=== PATIENT | male | born 1985 | race Caucasian/White ===

== ENCOUNTER 2024-08-03 15:56 | Outpatient (REF) | payer MEDICAID, SELFPAY | END 2024-08-03 15:57 | disposition home or self-care (01) | LOC: LAB 15:56 | PROVIDERS: PCP Physician Assistant; Visit Provider Physician Assistant | DX: R19.8 Other specified symptoms and signs involving the digestive system and abdomen (principal) | CPT/HCPCS: 87177; 87209 ==

== ENCOUNTER 2024-08-04 08:40 | Outpatient (REF) | payer MEDICAID, SELFPAY | END 2024-08-04 08:41 | disposition home or self-care (01) | LOC: LAB 08:40 | PROVIDERS: PCP Physician Assistant; Visit Provider Physician Assistant | DX: R19.8 Other specified symptoms and signs involving the digestive system and abdomen (principal) | CPT/HCPCS: 87177; 87209 ==

== ENCOUNTER 2024-08-05 08:20 | Outpatient (REF) | payer MEDICAID, SELFPAY ==
--- OUTSIDE RECORDS SUMMARY | 2024-08-05 08:24 | XMS_ITS | CCD ---
Author Organization [facility] Care Team Providers Care Stoker Mechanic Name Role Phone DR SERGIO CASTAÑEDA Admitting Unavailable MADDY, DR HILL Attending Unavailable [facility], DR KIM Primary Care Unavailable DR SERGIO CASTAÑEDA Consulting Unavailable Mallory Houston Unavailable ESTRELLA SCHROEDER Attending Unavailable ESTRELLA SCHROEDER Attending Unavailable MONIQUE CISNEROS Attending Unavailable ESTRELLA SCHROEDER Attending Unavailable BRYANT MCLAUGHLIN Attending Unavailable MONIQUE CISNEROS Attending Unavailable Dorota Vann Attending Unavaila ble Allergies Allergy Classification Reported Allergen(s) Allergy Type Date of Onset Reaction(s) Facility (1 source) Erythromycin Drug Allergy [facility] (3 sources) Penicillin; Translations: [penicillin] Drug Allergy Unknown [facility] (1 source) Azithromycin Drug Allergy Unknown [facility] Other Medications Current Medications Medication Drug Class(es) Dates Sig (Normalized) Sig (Original) cetirizine hydrochloride 10 mg oral tablet (1 source) Histamine-1 Receptor Antagonist take 1 tablet by mouth every twenty-four hours Cetirizine HCl 10 MG 1 tablet Orally Once a day Active doxycycline hyclate 100 mg oral tablet (1 source) Tetracycline-class Drug Start: 07-21-2023 take 1 tablet by mouth every twelve hours Doxycycline Hyclate 100 MG 1 tablet Orally Twice a day for 10 day(s) Jun, Active fluticasone propionate 0.05 mg/actuat metered dose nasal spray (1 source) Corticosteroid Start: 07-21-2023 take 2 spray(s) nasal route once daily Fluticasone Propionate 50 MCG/ACT 2 sprays Nasally Once a day for 14 day(s) Jun, Active omeprazole 40 mg delayed release oral capsule (1 source) Proton Pump Inhibitor take 1 capsule by mouth once daily Omeprazole 40 MG 1 capsule 30 minutes before morning meal Orally Once a day Active polymyxin b 78275 unt/ml / trimethoprim 1 mg/ml ophthalmic solution (1 source) Dihydrofolate Reductase Inhibitor Antibacterial, Polymyxin-class Antibacterial Start: 07-21-2023 take 1 drop(s) into the eye(s) four times daily Polymyxin B-Trimethoprim 65606-3.1 UNIT/ML 1 drop(s) each eye Four times a day for 5 Jun, Active predniSONE 20 mg oral tablet (1 source) Start: 07-21-2023 take 1 tablet by mouth every twelve hours predniSONE 20 MG 1 tablet Orally bid for 5 day(s) Jun, Active Completed/Discontinued Medications Medication Drug Class(es) Dates Sig (Normalized) Sig (Original) brompheniramine maleate 0.4 mg/ml / dextromethorphan hydrobromide 2 mg/ml / pseudoephedrine hydrochloride 6 mg/ml oral solution (1 source) alpha-Adrenergic Agonist, Uncompetitive P-ilpzud-X-aspartat e Receptor Antagonist, Sigma-1 Agonist Start: 01-05-2022 take 10 mL by mouth every six hours Pseudoeph-Bromph en-DM 30-2-10 MG/5ML 10 mL Orally every 6 hours for 5 days Dec, Not-Taking ondansetron 4 mg oral tablet (1 source) Serotonin-3 Receptor Antagonist Start: 01-05-2022 take 1 tablet by mouth every eight hours as needed Ondansetron HCl 4 MG 1 tablet Orally every 8 hours as needed for 7 days Dec, Not-Taking oseltamivir 75 mg oral capsule (1 source) Neuraminidase Inhibitor Start: 01-05-2022 Oseltamivir Phosphate 75 MG as directed Orally Twice a day for 5 day(s) Dec, Not-Taking Problems Problem Classification Problem Date Documented Date Episodic/Chronic Inflammation; infection of eye (except that caused by tuberculosis or sexually transmitteddisease) (1 source) Unspecified conjunctivitis Episodic Other non-traumatic joint disorders (4 sources) Effusion, left knee; Translations: [EFFUSION LEFT KNEE] Onset: 12-04-2022 Episodic Other upper respiratory infections (1 source) Acute sinusitis, unspecified Episodic Results Test Name Value Interpretation Reference Range Facil ity CBC AUTO DIFFon 12-04-2022 BASO # 0.1 103/ul Normal 0.0-0.1 [facility] Comment on above: Performed By: #### C BC #### [facility] [address] [place] [address] Dr. Letty Grier Basophils/100 WBC (Bld) 0.6 % Normal 0.2-2.0 [facility] Comment on above: Performed By: #### C BC #### [facility] [address] [place] [address] Dr. Letty Grier EO # 0.1 103/ul Normal 0.0-0.7 [facility] Comment on above: Performed By: #### C BC #### [facility] [address] [place] [address] Dr. Letty Grier Eosinophils/100 WBC (Bld) 1.0 % Normal 0.9-7.0 [facility] Comment on above: Performed By: #### C BC #### [facility] [address] [place] [address] Dr. Letty Grier Erythrocyte distribution width (RBC) [Ratio] 12.5 % Normal 11.0-15.0 [facility] Comment on above: Performed By: #### C BC #### [facility] [address] [place] [address] Dr. Letty Grier Hematocrit (Bld) [Volume fraction] 44.5 % Normal 42.0-54.0 [facility] Comment on above: Performed By: #### C BC #### [facility] [address] [place] [address] Dr. Letty Grier Hemoglobin (Bld) [Mass/Vol] 15.9 g/dL Normal 14.0-18.0 [facility] Comment on above: Performed By: #### C BC #### [facility] [address] [place] [address] Dr. Letty Grier IG # 0.10 10e3/ul Critically high 0.00-0.03 [facility] Comment on above: Performed By: #### C BC #### [facility] [address] [place] [address] Dr. Letty Grier IG % 0.8 % Critically high 0.0-0.5 [facility] Comment on above: Performed By: #### C BC #### [facility] [address] [place] [address] Dr. Letty Grier LYMPH # 2.0 103/ul Normal 1.2-3.8 [facility] Comment on above: Performed By: #### C BC #### [facility] [address] [place] [address] Dr. Letty Grier Lymphocytes/100 WBC (Bld) 16.3 % Critically low 20.5-60.0 [facility] Comment on above: Performed By: #### C BC #### [facility] [address] [place] [address] Dr. Letty Grier MANUAL DIFF REQ NO Normal [facility] Comment on above: Performed By: #### C BC #### [facility] [address] [place] [address] Dr. Letty Grier MCH (RBC) [Entitic mass] 29.3 pg Normal 25.9-34.0 [facility] Comment on above: Performed By: #### C BC #### [facility] [address] [place] [address] Dr. Letty Grier MCHC (RBC) [Mass/Vol] 35.7 g/dL Critically high 29.9-35.2 [facility] Comment on above: Performed By: #### C BC #### [facility] [address] [place] [address] Dr. Letty Grier MCV (RBC) [Entitic vol] 82.1 fL Normal 80.0-94.0 [facility] Comment on above: Performed By: #### C BC #### [facility] [address] [place] [address] Dr. Letty Grier MONO # 0.8 103/ul Normal 0.3-0.8 [facility] Comment on above: Performed By: #### C BC #### [facility] [address] [place] [address] Dr. Letty Grier Monocytes/100 WBC (Bld) 6.7 % Normal 1.7-12.0 [facility] Comment on above: Performed By: #### C BC #### [facility] [address] [address] [address] Letty Grier NEUT # 8.9 103/ul Critically high 1.4-6.5 [facility] Comment on above: Performed By: #### C BC #### [facility] [address] [address] [address] Letty Grier Neutrophils/100 WBC (Bld) 74.6 % Normal 43.0-75.0 [facility] Comment on above: Performed By: #### C BC #### [facility] [address] [address] [address] Letty Grier Platelet mean volume (Bld) [Entitic vol] 9.6 fL Normal 9.5-13.5 [facility] Comment on above: Performed By: #### C BC #### [facility] [address] [place] [address] Dr. Letty Grier PLT 319 103/ul Normal 150-450 [facility] Comment on above: Performed By: #### C BC #### [facility] [address] [place] [address] Dr. Letty Grier RBC 5.42 106/ul Normal 4.70-6.10 [facility] Comment on above: Performed By: #### C BC #### [facility] [address] [place] [address] Dr. Letty Grier WBC 11.9 103/ul Critically high 4.0-11.0 [facility] Comment on above: Performed By: #### C BC #### [facility] [address] [address] [address] Letty Grier CRPon 12-04-2022 CRP 1.0 mg/dL Normal <=1.0 [facility] Comment on above: Performed By: #### U QUINTON, CRP #### [facility] [address] [place] [address] Dr. Letty Grier SED RATE WESTERGRENon 2022 SED RATE 10 mm/hr Normal <=15 [facility] Comment on above: Performed By: #### S EDR #### [facility] [address] [address] [address] Letty Grier URIC ACID SERUMon 12-04-2022 Urate [Mass/Vol] 6.6 mg/dL Normal 3.5-7.2 [facility] Comment on above: Performed By: #### U QUINTON, CRP #### [facility] [address] [address] [address] Letty Grier MRI Knee w/o Lefton 10-01-20 MRI Knee w/o Left HISTORY: Left medial knee pain for 2 months. TECHNIQUE: Routine non-contrast MRI of the left knee COMPARISON: Radiographs 08/31/2022. RESULT: MENISCI: Medial Meniscus: Horizontal tearing involving the posterior horn and body, contacting the inferior articular surface, without significant meniscal displacement. Lateral Meniscus: Intact LIGAMENTS: ACL, PCL, MCL, LCL Complex: Intact CARTILAGE: Within normal limits. TENDONS: Mild distal quadriceps and patellar tendinosis without tear. Popliteus appears intact. BONES AND MARROW: No evidence of fracture or bone marrow replacing process. MUSCLES: Muscle bulk and signal intensity are normal. JOINT FLUID AND SYNOVIUM: No joint effusion. No synovitis. No Reno's cyst. OTHER: No other significant abnormality. IMPRESSION: Medial meniscal tear. Mild extensor mechanism tendinosis. Report reported and signed by Cristino Timmons on 10/01/2022 1607 Normal [facility] [employer] Person Vital Signs Date Time Vital Sign Value Performing Clinician Facility 07-21-2023 10:00-0400 Body height 190.5 cm Mallory Houston Other [facility] Other 07-21-2023 10:00-0400 Body mass index (BMI) [Ratio] 30.52 kg/m2 Mallory Houston Other [facility] Other 07-21-2023 10:00-0400 Body temperature 98.7 [degF] Mallory Houston Other [facility] Other 07-21-2023 10:00-0400 Body weight 110.77 kg Mallory Houston Other [facility] Other 07-21-2023 10:00-0400 Diastolic blood pressure 83 mm[Hg] Mallory Houston Other [facility] Other 07-21-2023 10:00-0400 Respiratory rate 18 /min Mallory Houston Other [facility] Other 07-21-2023 10:00-0400 SaO2% (BldA) [Mass fraction] 97 % Mallory Houston Other [facility] Other 07-21-2023 10:00-0400 Systolic blood pressure 110 mm[Hg] Mallory Houston Other [facility] Other Encounters Encounter Date Encounter Type Care Provider Facility Start: 08-07-2024 ambulatory Raya Talal Sarmini Facility:[facility] Start: 07-19-2024 ambulatory Raya Abemini Facili ty:[facility] Start: 04-04-2024 End: 04-04-2024 ambulatory MONIQUE Dee BLAYNE Not Available Start: 01-27-2024 End: 01-27-2024 ambulatory BRYANT MCLAUGHLIN Not Available Start: 01-26-2024 End: 01-26-2024 ambulatory ESTRELLA E RAMBASEK Not Available Start: 12-29-2023 End: 12-29-2023 ambulatory ESTRELLA E RAMBASEK Not Available Start: 11-11-2023 End: 11-11-2023 ambulatory MONIQUE M HEMMER Not Available Start: 10-18-2023 End: 10-18-2023 ambulatory ESTRELLA E RAMBASEK Not Available Start: 07-21-2023 End: 07-21-2023 ambulatory Mallory Houston Other [facility] Other Start: 07-21-2023 Office outpatient vi sit 15 minutes [facility] Start: 12-04-2022 End: 12-05-[address] SERGIO CASTAÑEDA Facility:[facility] Payers Date Payer Category Payer Medicaid [id number] 2. [id number] 1985 Unknown [id number] 2.16.84 [id number] 1985 Unknown [id number] 2.16.84 [id number] 1985 Unknown [id number] 2.16.84 [id number] 1985 Unknown [id number] 2.16.84 [id number] 1985 Unknown [id number] 2.16.84 [id number] 1985 Unknown [id number] 2.16.840 .[id number] 1985 Unknown [id number] 2.16.840 .[id number] 1985 Unknown [id number] 2.16.8 [id number] 1957 Unknown [id number] Social History Date Type Detail Facility Unknown if ever smoked [facility] Other Sex Assigned At Sex Assigned At Bir th [facility] Other Evaluation note 07-21-2023 Note Date & Type Note Facility 07-21-2023 Evaluation note Encounter Date Diagnosis Assessment Notes Jun, Acute sinusitis, recurrence not specified, unspecified location (ICD-10 - J01.90) Sinusitis home care material was printed Drink plenty fluids, get plenty of rest. Take the doxycycline and the prednisone as prescribed until gone. Use the fluticasone nasal spray as prescribed and your symptoms improved. Use the eyedrops as prescribed. Good handwashing. Wash your pillowcase every day for the next few days. Follow-up with your family physician if no improvement in 2 to 3 days. Jun, Conjunctivitis of both eyes, unspecified conjunctivitis type (ICD-10 - H10.9) [facility] Other History general Narrative - Reported Note Date & Type Note Facility History general Narrative - Reported Type Surgical History tonsillectomy and adenoidectomy Surgical History PE tubes Surgical History meniscus 11/19 [facility] Other Summary Purpose Family History No Family History Records FoundNo Family History Records FoundNo Family History Records FoundNo Family History Records Found Advance Directives No Advanced Directives Records FoundNo Advanced Directives Records FoundNo Advanced Directives Records FoundNo Advanced Directives Records Found Additional Source Comments (unrecognized sect ion and content) No Status Records FoundNo Status Records FoundNo Status Records FoundNo Status Records Found INFORMATION SOURCE (unrecogn ized section and content) DATE CREATED AUTHOR 10/02/2022 [facility] DATE CREATED AUTHOR AUTHOR'S ORGANIZ ATION 12/17/2022 [facility] DATE CREATED AUTHOR AUTHOR'S ORGANIZ ATION 04/05/2024 [facility] EPIC DATE CREATED AUTHOR AUTHOR'S ORGANIZ ATION 08/04/2024 [facility] REASON FOR VISIT (unrecogniz ed section and content) SORE THROAT, SWOLLEN GLANDS, CONGESTION, SORE EARS, EYE MUCUS FOR RECORDS PERTAINING TO PATIENTS WHO ARE OR HAVE BEEN ENROLLED IN A CHEMICAL DEPENDENCY/SUBSTANCEABUSE PROGRAM, SOME INFORMATION MAY BE OMITTED. This clinical summary was aggregated from multiple sources. Caution should be exercised in using it in the provision of clinical care. This summary normalizes information from multiple sources, and as a consequence, information in this document may materially change the coding, format and clinical context of patient data. In addition, data may be omitted in some cases. CLINICAL DECISIONS SHOULD BE BASED ON THE PRIMARY CLINICAL RECORDS. [employer] provides no warranty or guarantee of the accuracy or completeness of information in this document.
== END 2024-08-05 08:21 | disposition home or self-care (01) ==
LOC: LAB 08:20
PROVIDERS: PCP Physician Assistant; Visit Provider Physician Assistant
DX: R19.8 Other specified symptoms and signs involving the digestive system and abdomen (principal)
CPT/HCPCS: 87177; 87209

== ENCOUNTER 2025-05-22 12:05 | Outpatient (OUT) | payer MEDICAID, SELFPAY ==
--- NOTE | 2025-05-22 12:24 | XR_ITS ---
The [address] [address] Patient Name: GABY SCHOFIELD MRN: [id number] date: 1985 Sex: M Assigned Patient Location: LAB Current Patient Location: LAB Accession/Order Number: [id number] Exam Date: 05/22/2025 13:01 Report Date: 05/22/2025 13:03 At the request of: EFREN WYATT Procedure: XR foot LT min 3V LEFT FOOT - 3 views CLINICAL HISTORY: Medial left foot pain. COMPARISON: None FINDINGS: No focal soft tissue abnormality. No acute bony process is seen. Presumed remote posttraumatic changes involving the distal phalanx of the first digit. Joint spaces appear maintained. No bony erosions. XR/XR foot LT min 3V IMPRESSION: NO ACUTE BONY PROCESS. Impression dictated by: Dimitry Love Jr., D.O. 05/22/2025 1:03 PM Dictation Location: [place] [address] Electronically authenticated by: [id number] Y Date: 05/22/2025 13:03
[2025-05-22 13:00] LABS: Uric Acid 6.8 mg/dL (3.5-7.2)
== END 2025-05-22 12:06 | disposition home or self-care (01) ==
LOC: LAB 12:10
PROVIDERS: PCP Physician Assistant; Visit Provider Nurse Practitioner Family
DX: M10.9 Gout, unspecified (principal); M79.672 Pain in left foot
CPT/HCPCS: 36415; 73630; 84550

== ENCOUNTER 2025-09-13 09:47 | Outpatient (OUT) | payer MEDICAID, SELFPAY ==
--- OUTSIDE RECORDS SUMMARY | 2024-06-26 04:00 | XMS_ITS ---
Author Organization [facility] Servic es Address [address] [place] [address] Care Team Providers Care Consulting Sales Manager Name Role Phone Dr. Dimitry Damian Primary Care Provider [phone] Jeanette Dhillon Unavailable [phone] REASON FOR VISIT 6 MONTHS Encounters Encounter Location Date Provider Diagnosis [address] [address] 06/26/2024 Jeanette Little Plan Of Treatment No Information Progress Notes * GABY SCHOFIELDDOB: [birth year] (40 yo M)Acc No.[id number]:06/26/2024 Patient: John GABY DORSEY Provider: Ravi Briscoe :1985 A ge:39 Y S ex:Male Date:06/26/2024 Address:[address] [place], [place] [id number] Pcp:Dr. Dimitry Damian Subjective: * Chief Complaints: * 6 MONTHS * Electronic signature of Karin Little on 09/13/2025 at 09:53 AM EDT Sign off status: Pending * Provider: Ravi Briscoe Date: 0 06/26/2024 Generated for Maoi ng/Kirby/eTransmitting on: 1 09:53 AM EDT
--- OUTSIDE RECORDS SUMMARY | 2024-09-04 04:30 | XMS_ITS ---
Author Organization [facility] es Address [address] [place] [address] Care Team Providers Care Touch Up Painter Name Role Phone Dr. Dimitry Damian Primary Care Provider [phone] Jeanette Little Unavailable [phone] REASON FOR VISIT R/S from 06/26- exam Encounters Encounter Location Date Provider Diagnosis [address] [place] [address] 09/04/2024 Jeanette Little Plan Of Treatment No Information Progress Notes * GABY SCHOFIELDDOB: 7 (40 yo M)Acc No.[id number]:09/04/2024 Patient: John SUNITA GABY Provider: Ravi Briscoe :1985 A ge:39 Y S ex:Male Date:09/04/2024 Address:[address] [place], [place] [id number] Pcp:Dr. Dimitry Damian Subjective: * Chief Complaints: * R /S from 06/26- exam * Electronic signature of Karin Little on 09/13/2025 at 09:54 AM EDT Sign off status: Pending * Provider: Ravi Briscoe Date: Generated for Maoi ng/Falillyg/eTransmitting on: 09:54 AM EDT
--- OUTSIDE RECORDS SUMMARY | 2025-09-03 08:30 | XMS_ITS | Encounter Summary ---
Author Organization [facility] Address [address] [place] [address] Care Team Providers Care Fuse Coiler Name Role Phone Janeen Levi MD Primary Care Provider [phone] Janeen Levi MD Unavailable Reason for Visit * Reason Comments Arm Pain EMG RUE * Other Medical (Routine) - Closed Specialty Diagnoses / Procedures Referred By Contac t Referred To Contact Neurology Diagnoses Arm weakness Numbness Arm pain, right Arm pain, left Procedures EMG AND NERVE CONDUCTION STUDY Daniele Kasper, PA [address] [place] [address] Phone: tel: fax: Anuj Lake MD [address] [facility] [address] [place] [address] Phone: tel: fax: Referral ID Status Reason Start Date Expiration Date Visits Re quested Visits Authorized [id number] Closed 08/27/2025 02/23/2026 1 1 Encounter Details Date Type Department Care Team (Latest Contact Info) Description 09/03/2025 8:30 AM EDT Procedure Visit [facility] [address] [facility] [address] [place] [address] Tendinitis of right forearm; Arm weakness; Numbness; Arm pain, right Social History Tobacco Use Types Packs/Day Years Used Date Smoking Tobacco: Never Smokeless Tobacco: Never Alcohol Use Standard Drinks/Week Comments Not Currently 0 (1 standard drink = 0.6 oz pur e alcohol) PHQ-2 Answer Date Recorded Patient Health Questionnaire-2 Score 0 05/22/2025 Sex and Gender Information Value Date Recorded Sex Assigned at Not on file Legal Sex Male 6:35 PM EDT Gender Identity Not on file Sexual Orientation Not on file documented as of this encounter Progress Notes * Charles Bearden - 09/03/2025 8:30 AM EDT EMG RUE documented in this encounter Plan of Treatment Upcoming Encounters Date Type Department Care Team (Late st Contact Info) Description 09/27/2025 10:50 AM EDT Office Visit [facility] [address] [place] [address] Reddy Norton, DPM [address] [facility] [address] [place] [address] 10/17/2025 8:30 AM EST Office Visit [facility] [address] [place] [phone] Jr. Fabricio Knight, DO [address] [place] [address] 01/29/2026 8:35 AM EST Office Visit [facility] [address] [place] [address] Dali Hewitt, SANDING SUPERVISOR-TRAY LINE SUPERVISOR [address] [place] [address] documented as of this encounter Procedures Procedure Name Priority Date/Time Associated Diagnosis Comments EMG AND NERVE CONDUCTION STUDY Routine 09/03/2025 2:02 PM EDT Arm weakness Numbness Arm pain, right documented in this encounter Results * EMG AND NERVE CONDUCTION STUDY (09/03/2025 2:02 PM EDT) us Daniele LEVI NEUROLOGY ORDERABLES Final Re sult documented in this encounter Visit Diagnoses Diagnosis Tendinitis of right forearm Arm weakness Other musculoskeletal symptoms referable to limbs Numbness Disturbance of skin sensation Arm pain, right Pain in soft tissues of limb documented in this encounter Care Teams Fuse Coiler Relationship Specialty Start Date End Date Janeen Levi MD [address] [facility] [address] [place] [address] PCP - General Family Medicine 05/03/23 Janeen Levi MD [address] [facility] [address] [place] [address] PCP - ROGES Alexey MANUFACTURED BUILDINGS SUPERVISOR 02/28/24 documented as of this encounter
--- OUTSIDE RECORDS SUMMARY | 2025-09-05 09:45 | XMS_ITS | Encounter Summary ---
Author Organization [facility] Address [address] [place] [address] Care Team Providers Care Cyanide Pot Hardener Name Role Phone Janeen Levi MD Primary Care Provider Janeen Levi MD Unavailable Reason for Referral * Consultation (Routine) - Authorized Specialty Diagnoses / Procedures Referred By Rukhsana carrizales Referred To Contact Physical Therapy Diagnoses Flexor carpi ulnaris tendinitis Procedures AR OFFICE/OUTPATIENT [facility] MDM 60 MINUTES Jr. Fabricio Knight DO 112 [facility] [address] [place] [address] Phone: tel: fax: [facility] [address] [place] [address] Phone: tel: fax: Referral ID Status Reason Start Date Expiration Date Visits Requested Visits Authorized [id number] Authorized Specialty Services Required 09/05/2025 03/04/2026 1 1 Reason for Visit * Reason Comments Pain Encounter Details Date Type Department Care Team (Late st Contact Info) Description 09/05/2025 9:45 AM EDT Office Visit [facility] [address] [facility] [address] [place] [address] Jr. Fabricio Knight DO 112 [facility] 150 [place] [address] Flexor carpi ulnaris tendinitis (Primary Dx) Social History Tobacco Use Types Packs/Day Years [...] as of this encounter Progress Notes * Jr. Fabricio Knight, DO - 09/05/2025 9:45 AM EDT Images from the original note were not included. HISTORY OF PRESENT ILLNESS: EST PT Andrea Rader is an 40 y.o. @ male. 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 CONSTANT ANTERIOR ACHING DISCOMFORT - CAN HAVE NUMBNESS TO PALM - WORSE WITH CERTAIN POSITIONS. DIFFICULTY WITH HOLDING OBJECTS UP WHILE LYING DOWN. MINIMAL TINGLING. CAN HAVE SOME INFLAMMATION / SWELLING TO ULNAR ASPECT / WRIST. GOOD ROM TO ELBOW / WRIST. ADMITS WEAKNESS / STIFFNESS. CAN WAKE HS. IBU PRN. TRIED BRACING / COMPRESSION SLEEVE / FATIGUE PADS - NO RELIEF. VOLTAREN - NO RELIEF. TRIED ICING - NO RELIEF. HAS TRIED STRETCHING. 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 RT HANDED. ALLERGIES: Allergies Allergen Reactions Erythromycin Base Unknown HOME MEDICATIONS: Current Outpatient Medications Medication Instructions carboxymethylcellulose (Refresh Plus) 0.5 % ophthalmic solution 1 drop, As needed cetirizine (ZYRTEC) 10 mg, Daily PRN fluticasone (Flonase) 50 MCG/ACT nasal spray 1 spray, Each Nostril, Daily, PRN ibuprofen 800 mg, Oral, 3 times daily methylPREDNISolone (Medrol Dospak) 4 MG tablets Follow schedule on MEDROL PACK package instructionsto be used as directed Multiple Vitamin (MULTIVITAMIN ADULT PO) 1 tablet, Daily omeprazole (PRILOSEC) 40 mg, Oral, Daily RT, Do not crush or chew. evvbmowspqgjjog-JE-HO 60-15-400 MG tablet 1 tablet, Oral, Every 6 hours PRN PHYSICAL EXAM: Hand/Wrist Musculoskeletal Exam Inspection Right Right hand/wrist inspection is normal. Erythema: none Ecchymosis: none Edema: none Deformity: none Palpation Right Right wrist palpation is normal. Wrist tenderness to palpation comment: DENIES PAIN TO SNUFF BOX OR SCAPHO-LUNATE. Palpation additional comments: With deep palpation over the flexor carpi ulnaris musculotendinous junction Range of Motion Right Wrist Right wrist range of motion is normal. Active Extension: 80 Passive Extension: 80 Active Flexion: 80 Passive Flexion: 80 Active Pronation: 90 Passive Pronation: 90 Active Supination: 90 Passive Supination: 90 Strength Right Hand Right hand strength is normal. Ulnar digital flexors are affected by pain. Right Wrist Right wrist strength is normal. Extension: 5/5. Flexion: 5/5. Flexion is affected by pain. Radial deviation: 5/5. Ulnar deviation: 5/5. Pronation: 5/5. Supination: 5/5. Neurovascular Right Right neurovascular exam is normal. Radial pulse: normal and 2+ Capillary refill: <3 sec and brisk Ulnar nerve sensory distribution: normal Median nerve sensory distribution: normal Superficial radial nerve sensory distribution: normal Special Tests Right DRUJ instability: negative TFCC load test: negative General Constitutional: appears stated age Labored breathing: no Neurological: alert and oriented x3 Skin: intact Lymphadenopathy: none Vitals: There is no height or weight on file to calculate BMI. Tobacco Use: Low Risk (09/06/2025) Patient History Smoking Tobacco Use: Never Smokeless Tobacco Use: Never Passive Exposure: Not on file Alcohol Use: Not on file IMAGING: Procedures Orders Placed This Encounter Procedures Ambulatory referral to Physical Therapy Standing Status: Future Expected Date: 09/05/2025 Expiration Date: 03/06/2026 Referral Priority: Routine Referral Type: Consultation Referral Reason: Specialty Services Required Referral Location: [facility] Requested Specialty: Physical Therapy Number of Visits Requested: 1 ASSESSMENT: ICD-10-CM 1. 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 I feel he is a flexorcarpi ulnaris strain sprain chronic from October 2023. We recommended physical therapy 3 times a week for 6 weeks. We'll see him back in 6 weeks. If his symptoms persist or worsen we would probablyrecommend a second opinion from Dr. Herring or Jalen. Questions answered in laymen terms at the bedside. The diagnosis, home exercise plan and any ongoing restrictions/ recommendations reviewed. If unable to be reached in office, I recommend evaluation at nearest Emergency Room if any symptoms worsened or new symptoms develop for requiring urgent evaluation. documented in this encounter Plan of Treatment Upcoming Encounters Date Type Department Care Team (Late st Contact Info) Description 09/27/2025 10:50 AM EDT Office Visit [facility] [address] [place] [address] Reddy Norton, DPM 3006 [facility] [address] [place] [address] 10/17/2025 8:30 AM EST Office Visit [facility] [address] [place] [address] Jr. Fabricio Knight DO [address] [place] [address] 01/29/2026 8:35 AM EST Office [facility] [address] [place] [address] Dali Hewitt, TEMI-CENTRAL STORES ATTENDANT [address] [place] [address] Scheduled Referrals Name Type Priority Associated Diagnoses Order Schedule Ambulatory referral to Physical Therapy Outpatient Referral Routine Flexor carpi ulnaris tendinitis Expected: 09/05/2025 (Approximate), Expires: 03/06/2026 documented as of this encounter Visit Diagnoses Diagnosis Flexor carpi ulnaris tendinitis- Primary documented in this encounter Care Teams Cyanide Pot Hardener Relationship Specialty Start Date End Date Janeen Levi MD [address] [address] PCP - General Family Medicine 05/03/23 Janeen Levi MD [address] [address] PCP - [facility] NICKING MACHINE OPERATOR 02/28/24 documented as of this encounter
--- OUTSIDE RECORDS SUMMARY | 2025-09-06 09:00 | XMS_ITS | Encounter Summary ---
Author Organization [facility] Address [address] [place] [address] Care Team Providers Care Log Loader Name Role Phone Janeen Levi MD Primary Care Provider [phone] Janeen Levi MD Unavailable Reason for Visit * Reason Comments Follow-up Lt 1st mpj Encounter Details Date Type Department Care Team (Latest Contact Info) Description 09/06/2025 9:00 AM EDT Office Visit [facility] [address] [facility] [address] [place] [address] Reddy Norton, DPM 3006 [facility] [address] [place] [address] Capsulitis of metatarsophalangeal (MTP) joint of left foot (Primary Dx); Plantar fasciitis; Gout of left foot, unspecified cause, unspecified chronicity; Hallux rigidus of left foot Social History Tobacco Use Types Packs/Day Years Used Date Smoking Tobacco: Never Smokeless Tobacco: Never Tobacco Cessation:Counseling Given: Yes Alcohol Use Standard Drinks/Week Comments Not Currently 0 (1 standard drink = 0.6 oz pur e alcohol) PHQ-2 Answer Date Recorded Patient Health Questionnaire-2 Score 0 05/22/2025 Sex and Gender Information Value Date Recorded Sex Assigned at Not on file Legal Sex Male 6:35 PM EDT Gender Identity Not on file Sexual Orientation Not on file documented as of this encounter Last Filed Vital Signs Vital Sign Reading Time Taken Comments Blood Pressure - - Pulse - - Temperature - - Respiratory Rate 18 09/06/2025 9:04 AM EDT Oxygen Saturation - - Inhaled Oxygen Concentration - - Weight 111 kg (245 lb) 09/06/2025 9:04 AM EDT Height 190.5 cm (6' 3 ) 09/06/2025 9:04 AM EDT Body Mass Index 30.62 09/06/2025 9:04 AM EDT documented in this encounter Progress Notes * Reddy Norton, DPM - 09/06/2025 9:00 AM EDT Patient: Andrea Rader : 1985 PCP: Janeen Levi MD SUBJECTIVE This is a 40 y.o. male that presents today for a follow up of right foot plantar fascitis for the past year. He has tried different shoes and nsaids with positive improvement. Patient rates pain a 1/10. Pt has been wearing orthotics with positive improvement. Patient presents today for follow up of capsulitis and synovitis to the left first MPJ Currently they rate their pain on a 1-10 scale a 1 States prior treatments of steroid injection and recent medrol pack with positive improvement. Patient has history of hallux limitus and possible gouty arthritis and states it proximally 1 week ago he had increased redness and soreness to the joint and took ibuprofen with positive improvement.States it has resolved and occurred directly after activity and wearing shoes as well Pt has hx of gout. Allergies: Allergies Allergen Reactions Erythromycin Base Unknown Past Medical History: Past Medical History: Diagnosis Date GERD (gastroesophageal reflux disease) Medications: Current Outpatient Medications: carboxymethylcellulose (Refresh Plus) 0.5 % ophthalmic solution, 1 drop if needed for dry eyes, Disp: , Rfl: cetirizine (ZyrTEC) 10 MG tablet, Take 10 mg by mouth Daily as needed for allergies, Disp: , Rfl: fluticasone (Flonase) 50 MCG/ACT nasal spray, Administer 1 spray into each nostril Daily PRN, Disp:9.9 mL, Rfl: 5 methylPREDNISolone (Medrol Dospak) 4 MG tablets, Follow schedule on MEDROL PACK package instructions to be used as directed, Disp: 21 tablet, Rfl: 0 Multiple Vitamin (MULTIVITAMIN ADULT PO), Take 1 tablet by mouth 1 (one) time each day., Disp: , Rfl: omeprazole (PriLOSEC) [address] capsule, Take 1 capsule (40 mg) by mouth in the morning. Do not crush or chew., Disp: 90 capsule, Rfl: 3 foametrivxppyuc-DN-KH 60-15-400 MG tablet, Take 1 tablet by mouth every 6 (six) hours if needed (Cough), Disp: 28 tablet, Rfl: 0 Social History: Social History Socioeconomic History Marital status: Spouse name: Not on file Number of children: Not on file Years of education: Not on file Highest education level: Not on file Occupational History Not on file Tobacco Use Smoking status: Never Smokeless tobacco: Never Vaping Use Vaping status: Never Used Substance and Sexual Activity Alcohol use: Not Currently Drug use: Never Sexual activity: Defer Other Topics Concern Not on file Social History Narrative Not on file Social Drivers of Health Financial Resource Strain: Not on file Food Insecurity: Not on file Transportation Needs: Not on file Physical Activity: Not on file Stress: Not on file Social Connections: Not on file Intimate Partner Violence: Not on file Housing Stability: Not on file ROS: General: denies fever, chills, fatigue, malaise GI: denies abdominal pain, loose stool or cramping. OBJECTIVE LE EXAM: DERM: Positive hair growth to b/l feet with good skin turgor noted. Negative openings in skin. Negative edema and erythema and podagra to the left 1st MPJ VASC: Palpable pedal pulsed b/l with warm to cool tibia to toes b/l NEURO: Gross sensation intact digits 1-10 and b/l feet ORTHO: +5/5 DF/PF/IN/EV right, +5/5 DF/PF/IN/EV left. 20 degrees inversion and 10 degrees eversion STJ b/l. Ankle ROM less than 10 degrees b/l. diminished pain on palpation along right plantar fascial band minimal pain on palpation to the 1st MPJ left less than 65 degrees dorsiflexion with negative crepitus XRAY: XR foot 3+ views left Imaging Result: 1st MPJ has slight narrowing of the 1st MPJ with slight medial deviation of the 1st metatarsal and very mild HAV deformity with negative fractures identified ASSESSMENT 1. Capsulitis of metatarsophalangeal (MTP) joint of left foot 2. Plantar fasciitis 3. Gout of left foot, unspecified cause, unspecified chronicity PLAN Pt to take nsaids as needed PRN pain Continue with orthotics Reviewed x-rays today with patient discussed possible need for joint aspirate or call for labs if has acute flare has patient has probably accommodation of gouty arthritis from time to time with hallux limitus of the left 1st MPJ. Did discuss possible bio Pro implant in the future if no improvementin patient to follow up if has episodes Reddy Norton DPM documented in this encounter Plan of Treatment Upcoming Encounters Date Type Department Care Team (Late st Contact Info) Description 09/27/2025 10:50 AM EDT Office Visit [facility] [address] [place] [address] Reddy Norton DPM 3006 [facility] [address] [place] [address] 10/17/2025 8:30 AM EST Office Visit [facility] [address] [place] [address] Jr. Fabricio Knight, [address] [place] [address] 01/29/2026 8:35 AM EST Office Visit [facility] [address] [place] [address] Dali Hewitt, GLOVE CUTTER-GASOLINE PLANT OPERATOR [address] [place] [address] documented as of this encounter Procedures Procedure Name Priority Date/Time Associated Diagnosis Comments XR FOOT 3+ VIEWS LEFT Routine 09/06/2025 9:20 AM EDT Capsulitis of metatarsophalangeal (MTP) joint of left foot documented in this encounter Results * XR foot 3+ views left (09/06/2025 9:20 AM EDT) Anatomical Region Laterality Modality Lower Extremities, Foot Left Radiogra phic Imaging Narrative 09/06/2025 9:28 AM EDT Imaging Result: 1st MPJ has slight narrowing of the 1st MPJ with slight medial deviation of the 1st metatarsal and very mild HAV deformity with negative fractures identified us Reddy Norton DPM IMG XR PROCEDURES Final Res ult documented in this encounter Visit Diagnoses Diagnosis Capsulitis of metatarsophalangeal (MTP) joint of left foot- Primary Plantar fasciitis Plantar fascial fibromatosis Gout of left foot, unspecified cause, unspecified chronicity Hallux rigidus of left foot documented in this encounter Care Teams Log Loader Relationship Specialty Start Date End Date Janeen Levi MD [address] [address] PCP - General Family Medicine 05/03/23 Janeen Levi MD 112 [facility] 110 [place] [address] PCP - [facility] Blackburn DRYWALLER 02/28/24 documented as of this encounter
--- OUTSIDE RECORDS SUMMARY | 2025-09-06 09:25 | XMS_ITS | Encounter Summary ---
Author Organization [facility] Address [address] [place] [address] Care Team Providers Care Shipping Point Inspector Name Role Phone Janeen Levi MD Primary Care Provider [phone] Janeen Levi MD Unavailable Encounter Details Date Type Department Care Team (Late Contact Info) Description 09/06/2025 9:25 AM EDT Ancillary Procedure [facility] 112 [facility] 120 [place] [address] Social History Tobacco Use Types Packs/Day Years [...] on file documented as of this encounter Plan of Treatment Upcoming Encounters Date Type Department Care Team (Late Contact Info) Description 09/27/2025 10:50 AM EDT Office Visit [facility] 112 [facility] 120 [place] [address] Reddy Norton DPM 3006 [facility] [address] [place] [address] 10/17/2025 8:30 AM EST Office Visit [facility] [address] [facility] [address] [place] [address] Jr. Fabricio Knight, DO [address] [facility] [address] [place] [address] 01/29/2026 8:35 AM EST Office Visit [facility] [address] [place] [address] Dali Hewitt, CONTENT DEVELOPMENT MANAGER-NEEDLE GRADER [address] [place] [address] documented as of this encounter [...] mild HAV deformity with negative fractures identified Reddy Norton DPM IMG XR PROCEDURES Final Res ult documented in this encounter Visit Diagnoses Not on filedocumented in this encounter Care Teams Shipping Point Inspector Relationship Specialty Start Date End Date Janeen Levi MD [address] [facility] [address] [place] [address] PCP - General Family Medicine 05/03/23 Janeen Levi MD [address] [facility] [address] [place] [address] PCP - [facility] Blackburn TSA SCREENER 02/28/24 documented as of this encounter
--- OUTSIDE RECORDS SUMMARY | 2025-09-12 16:10 | XMS_ITS | Encounter Summary ---
Author Organization [facility] Address [address] [place] [address] Care Team Providers Care Locker Room Clerk Name Role Phone Janeen Levi MD Primary Care Provider [phone] Janeen Levi MD Unavailable Reason for Visit * Reason Comments Follow-up Foot pain Encounter Details Date Type Department Care Team (Latest Contact Info) Description 09/12/2025 4:10 PM EDT Office Visit [facility] [address] [place] [address] Reddy Norton DPM [address] [address] Capsulitis of metatarsophalangeal (MTP) joint of left foot (Primary Dx); Hallux rigidus of left foot; Gout of left foot, unspecified cause, unspecified chronicity; Plantar fasciitis Social History Tobacco Use Types Packs/Day Years [...] - Temperature - - Respiratory Rate 18 09/12/2025 4:30 PM EDT Oxygen Saturation - - Inhaled Oxygen Concentration - - Weight 111 kg (245 lb) 09/12/2025 4:30 PM EDT Height 190.5 cm (6' 3 ) 09/12/2025 4:30 PM EDT Body Mass Index 30.62 09/12/2025 4:30 PM EDT documented in this encounter Progress Notes * Reddy Norton, DPM - 09/12/2025 4:10 PM EDT Patient: Andrea Rader : 1985 PCP: [...] their pain on a 1-10 scale a 8 States prior treatments of steroid injection and recent medrol pack with positive improvement in the past. Patient has history of hallux limitus and possible gouty arthritis and was last seen one week ago with improvement on prior visit. Patient states increased flare and redness and pain to the left 1st MPJ over the past 24 hour Pt has hx of gout. Allergies: Allergies [...] nostril Daily PRN, Disp:9.9 mL, Rfl: 5 ibuprofen 800 MG tablet, Take 1 tablet (800 mg) by mouth in the morning and 1 tablet (800 mg) in the evening and 1 tablet (800 mg) before bedtime., Disp: 90 tablet, Rfl: 0 methylPREDNISolone (Medrol Dospak) 4 MG tablets, Follow [...] or chew., Disp: 90 capsule, Rfl: 3 qofzurftupvmvin-TE-UK 60-15-400 MG tablet, Take 1 tablet by [...] skin turgor noted. Negative openings in skin. positiveedema and positive podagra to the left 1st MPJ VASC: Palpable pedal pulsed b/l with warm to cool tibia to toes b/l NEURO: Gross sensation intact digits 1-10 and b/l feet ORTHO: +5/5 DF/PF/IN/EV right, +5/5 DF/PF/IN/EV left. 20 degrees inversion and 10 degrees eversion STJ b/l. Ankle ROM less than 10 degrees b/l. diminished pain on palpation along right plantar fascial band Positive pain on palpation to the 1st MPJ left less than 65 degrees dorsiflexion with negative crepitus XRAY: PAST XR foot 3+ views left Imaging Result: 1st MPJ has slight narrowing of the 1st MPJ with slight medial deviation of the 1st metatarsal and very mild HAV deformity with negative fractures identified ASSESSMENT 1. Capsulitis of metatarsophalangeal (MTP) joint of left foot 2. Hallux rigidus of left foot 3. Gout of left foot, unspecified cause, unspecified chronicity 4. Plantar fasciitis PLAN Pt to take nsaids as needed PRN pain Continue with orthotics Perform aspiration of left 1st MPJ and sent to pathology lab for analysis of crystals. Foot was prepared with Betadine and injection of lidocaine with aspiration of lidocaine and synovial joint fluidto the left 1st MPJ today with follow up 2 weeks Prescriptions for colchicine today Ordered labs from [facility] of uric acid as well as CRP Reddy Norton DPM documented in this encounter Plan of Treatment Upcoming Encounters Date Type Department Care Team (Late st Contact Info) Description 09/27/2025 10:50 AM EDT Office Visit [facility] [address] [place] [address] Reddy Norton DPM 3006 [facility] 5 [place] [address] 10/17/2025 8:30 AM EST Office Visit [facility] [address] [place] [address] Jr. Fabricio Knight DO [address] [place] [address] 01/29/2026 8:35 AM EST Office Visit [facility] [address] [place] [address] Dali Hewitt, BEAMING MACHINE OPERATOR-AIR PLANT ENGINEER [address] [place] [address] Scheduled Orders Name Type Priority Associated Diagnoses Orde r Schedule Uric acid Lab Routine Gout of left foot, unspecified cause, unspecified chronicity Expected: 09/12/2025 (Approximate), Expires: 09/12/2026 C-reactive protein Lab Routine Gout of left foot, unspecified cause, unspecified chronicity Ordered: 09/12/2025 documented as of this encounter Visit Diagnoses Diagnosis Capsulitis of metatarsophalangeal (MTP) joint of left foot- Primary Hallux rigidus of left foot Gout of left foot, unspecified cause, unspecified chronicity Plantar fasciitis Plantar fascial fibromatosis documented in this encounter Care Teams Locker Room Clerk Relationship Specialty Start Date End Date Janeen Levi MD 112 [facility] 110 [place] [address] PCP - General Family Medicine 05/03/23 Janeen Levi MD 112 [facility] 110 [place] [address] PCP - SASKIA MENDEZ 02/28/24 documented as of this encounter
--- OUTSIDE RECORDS SUMMARY | 2025-09-13 09:53 | XMS_ITS | Encounter Summary ---
Author Organization [facility] Address [address] [place] [address] Care Team Providers Care Environmental Services Director Name Role Phone Janeen Levi MD Primary Care Provider [phone] Janeen Levi MD Unavailable Encounter Details Date Type Department Care Team (Late Contact Info) Description 08/14/2024 Abstract [facility] [place] [facility] 112 [facility] 110 [place] [address] Janeen Levi MD 112 [facility] 110 [place] [address] Social History Tobacco Use Types Packs/Day Years Used Date Smoking Tobacco: Never Smokeless Tobacco: Never Alcohol Use Standard Drinks/Week Comments Not Currently 0 (1 standard drink = 0.6 oz pur e alcohol) Sex and Gender Information Value Date Recorded Sex Assigned at Not on file Legal Sex Male 6:35 PM EDT Gender Identity Not on file Sexual Orientation Not on file documented as of this encounter Plan of Treatment Upcoming Encounters Date Type Department Care Team (Late Contact Info) Description 09/27/2025 10:50 AM EDT Office Visit [facility] 112 [facility] BILL 120 [place] [address] Reddy Norton, DPM 3006 [facility] 5 [place] [address] 10/17/2025 8:30 AM EST Office Visit [facility] [place] [facility] [address] [facility] BILL 110 [place] [phone] Jr. Fabricio Knight, [address] [facility] 150 [place] [address] 01/29/2026 8:35 AM EST Office Visit [facility] [place] [facility] [address] [facility] 350 [place] [address] Dali Hewitt, FOOD CART ATTENDANT-TOBACCO STEMMER MACHINE [address] [facility] 350 [place] [address] documented as of this encounter Visit Diagnoses Not on filedocumented in this encounter Care Teams Environmental Services Director Relationship Specialty Start Date End Date Janeen Levi MD 112 [address] [facility] 110 [place] [address] PCP - General Family Medicine 05/03/23 Janeen Levi MD [address] [facility] 110 [place] [address] PCP - NOM[facility] Blackburn THEOLOGY TEACHER 02/28/24 documented as of this encounter
--- OUTSIDE RECORDS SUMMARY | 2025-09-13 09:53 | XMS_ITS | Encounter Summary ---
Author Organization [facility] Address [address] [facility] [place] [address] Care Team Providers Care Slate Worker Name Role Phone Janeen Levi MD Primary Care Provider [phone] Janeen Levi MD Unavailable Encounter Details Date Type Department Care Team (Late st Contact Info) Description 05/22/2025 Abstract [facility] [place] [facility] [address] [place] 110 [place] [address] Janeen Levi MD [address] [place] 110 [place] [address] Social History Tobacco Use Types Packs/Day Years [...] on file documented as of this encounter Functional Status * Over the past 2 weeks, how often have you been bothered by any of the following problems? Question Answer Date of Assessment Author Little interest or pleasure in doing things Not at all 05/22/2025 11:03 AM NICOLAS COLLIER Feeling down, depressed, or hopeless Not at all 04/30 11:03 AM NICOLAS COLLIER Patient Health Questionnaire-2 Score 0 04/30 11:03 AM NICOLAS COLLIER documented as of this encounter Plan of Treatment Upcoming Encounters Date Type Department Care Team (Late st Contact Info) Description 09/27/2025 10:50 AM EDT Office Visit [facility] [address] [place] 120 [place] [phone] Reddy Norton, DPDee [address] [place] 5 [place] [address] 10/17/2025 8:30 AM EST Office Visit [facility] [place] [facility] [address] [facility] [address] [place] [address] Jr. Fabricio Knight, [address] [facility] 150 [place] [address] 01/29/2026 8:35 AM EST Office Visit [facility] [place] [facility] [address] [facility] [address] [place] [address] Dali Hewitt, BIODIESEL PLANT MANAGER-COMBER SETTER [address] [place] [address] [place] [address] documented as of this encounter Visit Diagnoses Not on filedocumented in this encounter Care Teams Slate Worker Relationship Specialty Start Date End Date Janeen Levi MD [address] [place] 110 [place] [address] PCP - General Family Medicine 05/03/23 Janeen Levi MD [address] [facility] 110 [place] [address] PCP - [facility] EXTERIOR DOOR INSTALLER 02/28/24 documented as of this encounter
--- OUTSIDE RECORDS SUMMARY | 2025-09-13 09:53 | XMS_ITS | Encounter Summary ---
Author Organization [facility] Address [address] [place] [address] Care Team Providers Care Secondary Connector Armature Name Role Phone Janeen Levi MD Primary Care Provider [phone] Janeen Leiv MD Unavailable Encounter Details Date Type Department Care Team (Late Contact Info) Description 09/01/2024 Abstract [facility] [place] [facility] 112 [facility] 110 [place] [phone] Janeen Levi MD 112 [facility] 110 [place] [address] Social History Tobacco Use Types Packs/Day Years [...] EDT Office Visit [facility] 112 [facility] BILL 120 [place] [address] Reddy Norton, DPM 3006 [facility] 5 [place] [address] 10/17/2025 8:30 AM EST Office Visit [facility] [place] [facility] [address] [facility] BILL 110 [facility] [phone] Jr. Fabricio Knight, [address] [place] [address] 01/29/2026 8:35 AM EST Office Visit [facility] [place] [facility] [address] [facility] 350 [place] [address] Dali Hewitt, INDEPENDENT LIVING SPECIALIST-DIRECTOR OF RESIDENCE LIFE [address] [facility] [address] [place] [address] documented as of this encounter Visit Diagnoses Not on filedocumented in this encounter Care Teams Secondary Connector Armature Relationship Specialty Start Date End Date Janeen Levi MD 112 [place] [facility] 110 [place] [address] PCP - General Family Medicine 05/03/23 Janeen Levi MD 112 [place] [facility] 110 [place] [address] PCP - NOMBrandon Blackburn TAVERN OPERATOR 02/28/24 documented as of this encounter
--- OUTSIDE RECORDS SUMMARY | 2025-09-13 09:53 | XMS_ITS | Encounter Summary ---
Author Organization [facility] Address [address] [place] [address] Care Team Providers Care Wood Shop Teacher Name Role Phone Janeen Leiv MD Primary Care Provider [phone] Janeen Levi MD Unavailable Encounter Details Date Type Department Care Team (Late Contact Info) Description 09/12/2025 Bamboo flowsheet [facility] 3006 [place] [phone] Reddy Norton DPM [address] [address] Social History Tobacco Use Types Packs/Day Years [...] Description 09/27/2025 10:50 AM EDT Office Visit [facility] 112 [facility] 120 [place] [address] Reddy Norton DPM [address] [address] 10/17/2025 8:30 AM EST Office Visit [facility] [place] [facility] [address] [facility] 110 [place] [address] Jr. Fabricio Knight, [address] [place] 150 [place] [address] 01/29/2026 8:35 AM EST Office Visit [facility] [place] [facility] [address] [facility] [address] [place] [address] Dali Hewitt, SALES REPRESENTATIVE CASH REGISTERS-DIRECTOR SOFTWARE [address] [place] [address] [place] [address] documented as of this encounter Visit Diagnoses Not on filedocumented in this encounter Care Teams Wood Shop Teacher Relationship Specialty Start Date End Date Janeen Levi MD [address] [facility] 110 [place] [address] PCP - General Family Medicine 05/03/23 Janeen Levi MD [address] [facility] 110 [place] [address] PCP - SASKIA Blackburn CASE TECHNICIAN 02/28/24 documented as of this encounter
--- OUTSIDE RECORDS SUMMARY | 2025-09-13 09:53 | XMS_ITS | Encounter Summary ---
Author Organization [facility] Address [address] [place] [address] Care Team Providers Care Engine Maintenance Mechanic Name Role Phone Janeen Levi MD Primary Care Provider [phone] Janeen Levi MD Unavailable Encounter Details Date Type Department Care Team (Late st Contact Info) Description 07/09/2025 Abstract [facility] 112 [facility] 120 [place] [address] Reddy Norton DPM [address] [address] Social History Tobacco Use Types Packs/Day Years [...] Visit [facility] [address] [facility] 120 [place] [address] Reddy Norton DPM [address] [address] 10/17/2025 8:30 AM EST Office Visit [facility] [place] [facility] [address] [facility] 110 [place] [address] Jr. Fabricio Knight, [address] [place] 150 [place] [address] 01/29/2026 8:35 AM EST Office Visit [facility] [place] [facility] [address] [facility] [address] [place] [address] Dali Hewitt, BLOWER INSULATOR-THORACIC MEDICINE SPECIALIST [address] [place] [address] [place] [address] documented as of this encounter Visit Diagnoses Not on filedocumented in this encounter Care Teams Engine Maintenance Mechanic Relationship Specialty Start Date End Date Janeen Levi MD [address] [facility] 110 [place] [address] PCP - General Family Medicine 05/03/23 Janeen Levi MD [address] [facility] 110 [place] [address] PCP - SASKIA Blackburn TECHNICAL SERVICES LIBRARIAN 02/28/24 documented as of this encounter
--- OUTSIDE RECORDS SUMMARY | 2025-09-13 09:53 | XMS_ITS | Encounter Summary ---
Author Organization [facility] Address [address] [place] [address] Care Team Providers Care Air Quality Instrument Specialist Name Role Phone Janeen Levi MD Primary Care Provider [phone] Janeen Levi MD Unavailable Encounter Details Date Type Department Care Team (Late Contact Info) Description 08/04/2023 Abstract [facility] [place] [facility] 112 [facility] 110 [place] [address] Janeen Levi MD 112 [facility] 110 [place] [address] Social History Tobacco Use Types Packs/Day Years [...] EDT Office Visit [facility] 112 [facility] BILL 120 [place] [address] Reddy Norton, DPM 3006 [facility] 5 [place] [address] 10/17/2025 8:30 AM EST Office Visit [facility] [place] [facility] [address] [facility] BILL 110 [facility] [address] Jr. Fabricio Knight, [address] [facility] 150 [place] [address] 01/29/2026 8:35 AM EST Office Visit [facility] [place] [facility] [address] [facility] 350 [place] [address] Dali Hewitt, LOCOMOTIVE BOILERMAKER-FIRE EATER [address] [facility] 350 [place] [address] documented as of this encounter Visit Diagnoses Not on filedocumented in this encounter Care Teams Air Quality Instrument Specialist Relationship Specialty Start Date End Date Janeen Levi MD 112 [place] [facility] 110 [place] [address] PCP - General Family Medicine 05/03/23 Janeen Levi MD 112 [place] [facility] 110 [place] [address] PCP - NOMBrandon Blackburn LABORATORY ENGINEER 02/28/24 documented as of this encounter
--- OUTSIDE RECORDS SUMMARY | 2025-09-13 09:53 | XMS_ITS | Encounter Summary ---
Author Organization [facility] Address [address] [place] [address] Care Team Providers Care Afterschool Babysitter Name Role Phone Janeen Levi MD Primary Care Provider [phone] Janeen Levi MD Unavailable Encounter Details Date Type Department Care Team (Late Contact Info) Description 05/03/2023 Abstract [facility] [place] [facility] [address] [facility] 110 [place] [phone] Patricia Figueroa LPN [address] [place] [address] Social History Tobacco Use Types Packs/Day Years [...] CI PODIATRY [address] [facility] 120 [place] [address] Reddy Norton, DPDee 3006 [facility] [address] 5 [place] [address] 10/17/2025 8:30 AM EST Office Visit [facility] [place] [facility] [address] [facility] 110 [place] [address] Jr. Fabricio Knight, [address] [facility] 150 [place] [address] 01/29/2026 8:35 AM EST Office Visit [facility] [place] [facility] [address] [facility] [address] [place] [address] Dali Hewitt, BANKRUPTCY JUDGE-STOCK WORKER [address] [place] [address] [place] [address] documented as of this encounter Visit Diagnoses Not on filedocumented in this encounter Care Teams Afterschool Babysitter Relationship Specialty Start Date End Date Janeen Levi MD [address] [facility] 110 [place] [address] PCP - General Family Medicine 05/03/23 Janeen Lvei MD [address] [facility] 110 [place] [address] PCP - NOMBrandon Blackburn OBSTETRICAL TECH 02/28/24 documented as of this encounter
--- OUTSIDE RECORDS SUMMARY | 2025-09-13 09:53 | XMS_ITS | Encounter Summary ---
Author Organization [facility] Address [address] [place] [address] Care Team Providers Care Stock Speculator Name Role Phone Janeen Levi MD Primary Care Provider [phone] Janeen Levi MD Unavailable Encounter Details Date Type Department Care Team ([facility] Contact Info) Description 09/27/2023 Abstract [facility] [place] [facility] 112 [facility] 110 [place] [phone] Janeen Levi MD 112 [facility] 110 [place] [address] Social History Tobacco Use Types Packs/Day Years [...] EDT Office Visit [facility] 112 [facility] BILL 120 [place] [address] Reddy Norton, DPM 3006 [facility] 5 [place] [address] 10/17/2025 8:30 AM EST Office Visit [facility] [place] [facility] [address] [facility] BILL 110 [place] [phone] Jr. Fabricio Knight, [address] [facility] 150 [place] [address] 01/29/2026 8:35 AM EST Office Visit [facility] [place] [facility] [address] [facility] 350 [place] [address] Dali Hewitt, PHOTOGRAMMETRIC TECH-TRUCK SAFETY INSPECTOR [address] [facility] 350 [place] [address] documented as of this encounter Visit Diagnoses Not on filedocumented in this encounter Care Teams Stock Speculator Relationship Specialty Start Date End Date Janeen Levi MD [address] [place] [facility] 110 [place] [address] PCP - General Family Medicine 05/03/23 Janeen Levi MD [address] [place] [facility] 110 [place] [address] PCP - NOMBrandon Blackburn PROGRAM WRITER 02/28/24 documented as of this encounter
--- OUTSIDE RECORDS SUMMARY | 2025-09-13 09:53 | XMS_ITS | Clinical Summary ---
Author Organization [employer]Control tem Address [id number] [address] [place] [address] Care Team Providers Care Belly Dancer Name Role Phone Carla Floyd Primary Care Provider [phone] Allergies Active Allergy Reactions Criticality Noted Date Comments Amoxicillin Other (See Comments) Medium 10/29/2022 Unknown, as a child from adoptive mother Erythromycin 10/29/2022 Penicillins Other (See Comments) 10/29/2022 Unknown, as a child from adoptive mother Medications cetirizine (ZyrTEC) 10 mg tablet Take 1 tablet (10 mg total) by mouth in the morning. Active fluticasone propionate (FLONASE) 50 mcg/actuation nasal spray Administer 1 spray into each nostril in the morning. Active vqftkcth-jpvj-G A-calcium &mins (THERAGRAN-M) 9 mg iron-400 mcg tablet Take 1 tablet by mouth in the morning. Active omeprazole (PriLOSEC) 40 mg capsule Take 1 capsule (40 mg total) by mouth in the morning. Active diclofenac sodium (VOLTAREN) 1 % gel Apply 2 g topically 4 (four) times a day as needed. Active ibuprofen (MOTRIN) 800 mg tablet Take 1 tablet (800 mg total) by mouth every 6 (six) hours as needed for pain. Active acetaminophen (TYLENOL) 325 mg tablet Take 2 tablets (650 mg total) by mouth every 6 (six) hours as needed for pain. Active Family History * Patient is adopted Medical History Relation Name Comments No Known Problems Brother 1 No Known Problems Brother 2 Colon cancer Mother family history of on bio mom's side No Known Problems Sister Relation Name Status Comments Brother 1 Alive Brother 2 Alive Father Other Mother Sister Alive Social History Tobacco Use Types Packs/Day Years Used Date Smoking Tobacco: Never Smokeless Tobacco: Never Tobacco Cessation:Counseling Given: Not Answered Alcohol Use Standard Drinks/Week Comments Never 0 (1 standard drink = 0.6 oz pur e alcohol) Sex and Gender Information Value Date Recorded Sex Assigned at Not on file Legal Sex Male 3:00 PM EST Gender Identity Not on file Sexual Orientation Not on file Last Filed Vital Signs Vital Sign Reading Time Taken Comments Blood Pressure 125/85 11/11/2022 1:25 PM EST Pulse 64 11/11/2022 1:25 PM EST Temperature 36.7 C (98 F) 11/11/2022 10:16 AM EST Respiratory Rate 11 11/11/2022 1:25 PM EST Oxygen Saturation 95% 11/11/2022 1:25 PM EST Inhaled Oxygen Concentration - - Weight 108.9 kg (240 lb) 11/11/2022 10:16 AM EST Height 190.5 cm (6' 3 ) 11/11/2022 10:16 AM EST Body Mass Index 30 11/11/2022 10:16 AM EST Plan of Treatment Health Maintenance Due Date Last Done Comments Depression Screening 1999 Tobacco Screening 1999 DTaP,Tdap and Td Vaccines (1 - Tdap) 2006 Adult BMI Screening 11/11/2023 11/11/2022 Influenza Vaccine 07/30/2025 Medical Devices Not on file Insurance MEDICAID Care Teams Belly Dancer Relationship Specialty Start Date End Date Carla Floyd PA PCP - General Physician Assembly Line Driver 11/09/22
--- OUTSIDE RECORDS SUMMARY | 2025-09-13 09:53 | XMS_ITS | Encounter Summary ---
Author Organization [facility] Address [address] [place] [address] Care Team Providers Care Respiratory Physician Name Role Phone Janeen Levi MD Primary Care Provider [phone] Janeen Levi MD Unavailable Encounter Details Date Type Department Care Team (Late st Contact Info) Description 07/26/2025 Abstract [facility] 112 [facility] 120 [place] [address] Reddy Norton DPM [address] [address] Social History Tobacco Use Types Packs/Day Years [...] Visit [facility] [address] [facility] 120 [place] [address] Reddy Norton DPM [address] [address] 10/17/2025 8:30 AM EST Office Visit [facility] [place] [facility] [address] [facility] [address] [place] [address] Jr. Fabricio Knight, [address] [place] 150 [place] [address] 01/29/2026 8:35 AM EST Office Visit [facility] [place] [facility] [address] [place] [address] [place] [address] Dali Hewitt, ROAD CONDUCTOR-PSYCHIATRIC NURSING ASSISTANT [address] [place] [address] [place] [address] documented as of this encounter Visit Diagnoses Not on filedocumented in this encounter Care Teams Respiratory Physician Relationship Specialty Start Date End Date Janeen Levi MD [address] [facility] 110 [place] [address] PCP - General Family Medicine 05/03/23 Janeen Levi MD [address] [facility] 110 [place] [address] PCP - SASKIA Blackburn MEAT SEAFOOD ASSOCIATE 02/28/24 documented as of this encounter
--- OUTSIDE RECORDS SUMMARY | 2025-09-13 09:53 | XMS_ITS | Encounter Summary ---
Author Organization [facility] Address [address] [place] [address] Care Team Providers Care Pharmacoepidemiologist Name Role Phone Janeen Levi MD Primary Care Provider [phone] Janeen Levi MD Unavailable Encounter Details Date Type Department Care Team (Late Contact Info) Description 08/04/2023 Abstract [facility] [place] [facility] 112 [facility] 110 [place] [address] Janeen Levi MD 112 [facility] [place] [facility] 110 [place] [address] Social History Tobacco Use Types Packs/Day Years [...] EDT Office Visit [facility] 112 [facility] BILL 120 [place] [address] Reddy Norton, DPM 3006 [facility] 5 [place] [address] 10/17/2025 8:30 AM EST Office Visit [facility] [place] [facility] [address] [facility] BILL 110 [place] [address] Jr. Fabricio Knight, [address] [facility] 150 [place] [address] 01/29/2026 8:35 AM EST Office Visit [facility] [place] [facility] [address] [facility] 350 [place] [address] Dali Hewitt, STUDIO SET UP WORKER-ELECTRONICS MAINTENANCE TECHNICIAN [address] [facility] 350 [place] [address] documented as of this encounter Visit Diagnoses Not on filedocumented in this encounter Care Teams Pharmacoepidemiologist Relationship Specialty Start Date End Date Janeen Levi MD 112 [place] 110 [place] [address] PCP - General Family Medicine 05/03/23 Janeen Levi MD 112 [place] [facility] 110 [place] [address] PCP - NOMBrandon Blackburn PLANT INSPECTOR 02/28/24 documented as of this encounter
--- OUTSIDE RECORDS SUMMARY | 2025-09-13 09:53 | XMS_ITS | Encounter Summary ---
Author Organization [facility] Address [address] [place] [address] Care Team Providers Care Physical Ther Name Role Phone Janeen Levi MD Primary Care Provider [phone] Janeen Levi MD Unavailable Encounter Details Date Type Department Care Team (Late Contact Info) Description 08/14/2024 Abstract [facility] [place] [facility] 112 [facility] 110 [place] [phone] Janeen Levi MD 112 [facility] 110 [place] [address] Social History Tobacco Use Types Packs/Day Years [...] 112 [facility] BILL 120 [place] [address] Reddy Norton, DPM 3006 [facility] 5 [place] [address] 10/17/2025 8:30 AM EST Office Visit [facility] [place] [facility] [address] [facility] BILL 110 [place] [phone] Jr. Fabricio Knight, [address] [facility] 150 [place] [address] 01/29/2026 8:35 AM EST Office Visit [facility] [place] [facility] [address] [facility] 350 [place] [address] Dali Hewitt, LEAD ENTERPRISE ARCHITECT-SUPERVISOR IRRIGATION [address] [facility] 350 [place] [address] documented as of this encounter Visit Diagnoses Not on filedocumented in this encounter Care Teams Physical Ther Relationship Specialty Start Date End Date Janeen Levi MD [address] [facility] 110 [place] [address] PCP - General Family Medicine 05/03/23 Janeen Levi MD [address] [facility] 110 [place] [address] PCP - NOMBrandon Blackburn VENEREAL DISEASE CONTROL HEAD 02/28/24 documented as of this encounter
--- OUTSIDE RECORDS SUMMARY | 2025-09-13 09:53 | XMS_ITS | Encounter Summary ---
Author Organization [facility] Address [address] [facility] [place] [address] Care Team Providers Care Director Employee Communications Name Role Phone Janeen Levi MD Primary Care Provider [phone] Janeen Levi MD Unavailable Encounter Details Date Type Department Care Team (Late st Contact Info) Description 05/22/2025 Abstract [facility] [place] [facility] [address] [place] [address] Janeen Levi MD [address] [place] [address] Social History Tobacco Use Types Packs/Day Years [...] [address] [place] [address] Reddy Norton, DPDee [address] [place] [address] 10/17/2025 8:30 AM EST Office Visit [facility] [place] [facility] [address] [place] [address] Jr. Fabricio Knight, [address] [place] [address] 01/29/2026 8:35 AM EST Office Visit [facility] [address] [place] [address] Dali Hewitt, METALSMITH APPRENTICE-SHOULDER SAWYER [address] [place] [address] documented as of this encounter Visit Diagnoses Not on filedocumented in this encounter Care Teams Director Employee Communications Relationship Specialty Start Date End Date Janeen Levi MD [address] [place] [address] PCP - General Family Medicine 05/03/23 Janeen Levi MD [address] [place] [address] PCP - [facility] Alexey FUSE CUP EXPANDER 02/28/24 documented as of this encounter
--- OUTSIDE RECORDS SUMMARY | 2025-09-13 09:54 | XMS_ITS | Encounter Summary ---
Author Organization [facility] Address [address] [place] [address] Care Team Providers Care Supervisor Microwave Name Role Phone Janeen Levi MD Primary Care Provider [phone] Janeen Levi MD Unavailable Encounter Details Date Type Department Care Team (Late st Contact Info) Description 09/03/2025 Telephone [facility] [place] [facility] [address] [place] [address] Reddy Norton DPM [address] [address] Social History Tobacco Use Types Packs/Day Years [...] on file documented as of this encounter Miscellaneous Notes * Telephone Encounter - Reddy Norton DPM - 09/03/2025 9:38 AM EDT Sent ibu to pharmacy on record and patient declined appointment in the next 24 hours and will follow up in 4 days for scheduled appointment * Telephone Encounter - Nathaniel Ghosh - 09/03/2025 9:24 AM EDT Pt called saying they had a bad gout flare up, asking if they can take motrin to help with the pain. documented in this encounter Plan of Treatment Upcoming Encounters Date Type Department Care Team (Late st Contact Info) Description 09/27/2025 10:50 AM EDT Office Visit [facility] [address] [place] [address] Reddy Norton, DPM [address] [place] [address] 10/17/2025 8:30 AM EST Office Visit [facility] [place] [facility] [address] [place] [address] Jr. Fabricio Knight, [address] [place] [address] 01/29/2026 8:35 AM EST Office Visit [facility] [place] [facility] [address] [place] [address] Dali Hewitt, MANPOWER DEVELOPMENT SPECIALIST-TIRE MAINTENANCE TECHNICIAN [address] [place] [address] documented as of this encounter Visit Diagnoses Diagnosis Gout of left foot, unspecified cause, unspecified chronicity- Primary documented in this encounter Care Teams Supervisor Microwave Relationship Specialty Start Date End Date Janeen Levi MD [address] [place] [address] PCP - General Family Medicine 05/03/23 Janeen Levi MD [address] [place] [address] PCP - [facility] Blackburn TRANSPORTATION MAINTENANCE OPERATOR 02/28/24 documented as of this encounter
--- OUTSIDE RECORDS SUMMARY | 2025-09-13 09:54 | XMS_ITS | Encounter Summary ---
Author Organization [facility] Address [address] [place] [address] Care Team Providers Care Business Services Specialist Sales Name Role Phone Janeen Levi MD Primary Care Provider [phone] Janeen Levi MD Unavailable Encounter Details Date Type Department Care Team (Latest Contact Info) Description 09/06/2025 Travel Social History Tobacco Use Types Packs/Day Years [...] [facility] [address] [place] [address] Reddy Norton, DPM 3008 [facility] 5 [place] [address] 10/17/2025 8:30 AM EST Office Visit [facility] [address] [facility] [address] 110 [place] [address] Jr. Fabricio Knight, DO [address] [place] [address] 01/29/2026 8:35 AM EST Office Visit [facility] [address] [place] [address] Dali Hewitt APRN-CHIEF POWER DISPATCHER [address] [place] [address] documented as of this encounter Visit Diagnoses Not on filedocumented in this encounter Care Teams Business Services Specialist Sales Relationship Specialty Start Date End Date Janeen Levi MD [address] [facility] 110 [place] [address] PCP - General Family Medicine 05/03/23 Janeen Levi MD [address] [facility] 110 [place] [address] PCP - SASKIA Blackburn RAG SHREDDER 02/28/24 documented as of this encounter
--- OUTSIDE RECORDS SUMMARY | 2025-09-13 09:54 | XMS_ITS | Encounter Summary ---
Author Organization [facility] Address [address] [facility] [place] [address] Care Team Providers Care Ship Rigger Name Role Phone Janeen Levi MD Primary Care Provider [phone] Janeen Levi MD Unavailable Encounter Details Date Type Department Care Team (Late Contact Info) Description 09/03/2025 Results Follow-Up [facility] [address] [facility] [address] [place] [address] Daniele Kasper, PA [address] [address] [place] [address] EMG AND NERVE CONDUCTION STUDY Social History Tobacco Use Types Packs/Day Years [...] EDT Office Visit [facility] [address] [facility] 120 [place] [address] Reddy Norton DPM 3006 [facility] 5 [place] [address] 10/17/2025 8:30 AM EST Office Visit [facility] [place] [facility] [address] [place] [address] Jr. Fabricio Knight, [address] [place] [address] 01/29/2026 8:35 AM EST Office Visit [facility] [address] [place] [address] Dali Hewitt, CIVIL DRAFTER-GRIDCAP MACHINE OPERATOR [address] [place] [address] documented as of this encounter Visit Diagnoses Not on filedocumented in this encounter Care Teams Ship Rigger Relationship Specialty Start Date End Date Janeen Levi MD [address] [facility] 110 [place] [address] PCP - General Family Medicine 05/03/23 Janeen Levi MD [address] [facility] 110 [place] [address] PCP - SASKAI Blackburn DIRECTOR OF MANUFACTURING 02/28/24 documented as of this encounter
--- OUTSIDE RECORDS SUMMARY | 2025-09-13 09:54 | XMS_ITS | Encounter Summary ---
Author Organization [facility] Address [address] [place] [address] Care Team Providers Care Produce Team Lead Name Role Phone Janeen Levi MD Primary Care Provider [phone] Janeen Levi MD Unavailable Encounter Details Date Type Department Care Team (Late st Contact Info) Description 07/26/2025 Abstract [facility] 112 [facility] 120 [place] [address] Reddy Norton DPM [address] [address] Social History Tobacco Use Types Packs/Day Years [...] Visit [facility] [address] [facility] 120 [place] [address] Reddy Norton DPM [address] [address] 10/17/2025 8:30 AM EST Office Visit [facility] [place] [facility] [address] [place] [address] Jr. Fabricio Knight, [address] [place] [address] 01/29/2026 8:35 AM EST Office Visit [facility] [place] [facility] [address] [place] [address] Dali Hewitt, AUTO AIR CONDITIONING APPRENTICE-HOME HEALTH AIDE CAREGIVER [address] [place] [address] documented as of this encounter Visit Diagnoses Not on filedocumented in this encounter Care Teams Produce Team Lead Relationship Specialty Start Date End Date Janeen Levi MD [address] [facility] 110 [place] [address] PCP - General Family Medicine 05/03/23 Janeen Levi MD [address] [facility] 110 [place] [address] PCP - SASKIA Blackburn FISH HATCHERY MANAGER 02/28/24 documented as of this encounter
--- OUTSIDE RECORDS SUMMARY | 2025-09-13 09:54 | XMS_ITS | Encounter Summary ---
Author Organization [facility] Address [address] [place] [address] Care Team Providers Care Computational Linguist Name Role Phone Janeen Levi MD Primary Care Provider [phone] Janeen Levi MD Unavailable Encounter Details Date Type Department Care Team (Late Contact Info) Description 08/22/2025 Orders Only [facility] [place] [facility] 112 [facility] 110 [place] [address] Left foot pain Social History Tobacco Use Types Packs/Day Years [...] EDT Office Visit [facility] [address]ILL [address] [place] [address] Reddy Norton DPM 3006 [facility] 5 [place] [address] 10/17/2025 8:30 AM EST Office Visit [facility] [place] [facility] [address] [facility] BILL 110 [place] [address] Jr. Fabricio Knight, [address] [facility] 150 [place] [address] 01/29/2026 8:35 AM EST Office Visit [facility] [address] [facility] 350 [place] [address] Dali Hewitt, ORACLE DATABASE ADMINISTRATOR-HOG CUTTER [address] [facility] 350 [place] [address] documented as of this encounter Visit Diagnoses Diagnosis Left foot pain Pain in soft tissues of limb documented in this encounter Care Teams Computational Linguist Relationship Specialty Start Date End Date Janeen Levi MD [address] [facility] 110 [place] [address] PCP - General Family Medicine 05/03/23 Janeen Levi MD [address] [facility] 110 [place] [address] PCP - SASKIA Blackburn ZOO DIRECTOR 02/28/24 documented as of this encounter
--- OUTSIDE RECORDS SUMMARY | 2025-09-13 09:54 | XMS_ITS | Patient Health Record ---
Author Organization [facility] Address [address] [place] [address] Care Team Providers Care Clinical Data Programmer Name Role Phone Dr. Dimitry Damian Primary Care Provider [phone] Reason For Referral No Information Plan Of Treatment No Information Insurance Providers Payer Name Payer Address Payer Phone Subscriber Number Group Number Insured Name Patient Relationship to Insured Coverage Start Date Coverage End Date [employer] [place] DQ Terminated 24 [address] [place] [address] [id number] GABY SCHOFIELD Self - patient is the insured 3 [employer] [place] BC[employer] Termed 2024 [address] [place] [address] [id number] GABY SCHOFIELD Self - patient is the insured 3
--- OUTSIDE RECORDS SUMMARY | 2025-09-13 09:54 | XMS_ITS | Encounter Summary ---
Author Organization [facility] Address [address] [place] [address] Care Team Providers Care Facility Maintenance Helper Name Role Phone Janeen Levi MD Primary Care Provider [phone] Janeen Levi MD Unavailable Encounter Details Date Type Department Care Team (Late Contact Info) Description 09/05/2025 Bamboo flowsheet [facility] [place] [facility] [address] [facility] [address] [place] [address] Jr. Fabricio Knight DO 112 [facility] [address] 150 [place] [address] Social History Tobacco Use Types Packs/Day Years [...] EDT Office Visit [facility] [address] [place] [address] Reddy Norton, DPM 3006 [facility] [address] 5 [place] [address] 10/17/2025 8:30 AM EST Office Visit [facility] [place] [facility] [address] [place] [address] Jr. Fabricio Knight, [address] [place] [address] 01/29/2026 8:35 AM EST Office Visit [facility] [place] [facility] [address] [place] [address] Dali Hewitt, PIECER UP[facility] [address] [place] [address] documented as of this encounter Visit Diagnoses Not on filedocumented in this encounter Care Teams Facility Maintenance Helper Relationship Specialty Start Date End Date Janeen Levi MD [address] [facility] 110 [place] [address] PCP - General Family Medicine 05/03/23 Janeen Levi MD [address] [facility] 110 [place] [address] PCP - ASSKIA Blackburn ROUTE VENDING MACHINE SERVICER 02/28/24 documented as of this encounter
--- OUTSIDE RECORDS SUMMARY | 2025-09-13 09:54 | XMS_ITS | Encounter Summary ---
Author Organization [facility] Address [address] [place] [address] Care Team Providers Care Optometrist Owner Name Role Phone Janeen Levi MD Primary Care Provider [phone] Janeen Levi MD Unavailable Encounter Details Date Type Department Care Team (Latest Contact Info) Description 09/05/2025 Travel Social History Tobacco Use Types Packs/Day [...] [facility] [address] [place] [address] Reddy Norton, DPM 300 [facility] 5 [place] [address] 10/17/2025 8:30 AM EST Office Visit [facility] [address] [facility] [address] 110 [place] [address] Jr. Fabricio Knight, DO [address] [place] [address] 01/29/2026 8:35 AM EST Office Visit [facility] [address] [place] [phone] Dali Hewitt APRN-BAIL BOND AGENT [address] [place] [address] documented as of this encounter Visit Diagnoses Not on filedocumented in this encounter Care Teams Optometrist Owner Relationship Specialty Start Date End Date Janeen Levi MD [address] [facility] 110 [place] [address] PCP - General Family Medicine 05/03/23 Janeen Levi MD [address] [facility] 110 [place] [address] PCP - SASKIA Blackburn BENEFITS OFFICER 02/28/24 documented as of this encounter
--- OUTSIDE RECORDS SUMMARY | 2025-09-13 09:54 | XMS_ITS | Clinical Summary ---
Author Organization [facility] Address [address] [place] [address] Care Team Providers Care Oral Surgeon Name Role Phone Janeen Levi MD Primary Care Provider [phone] Janeen Levi MD Unavailable Allergies Active Allergy Reactions Criticality Noted Date Comments Erythromycin Base Unknown 05/03/2023 Medications Multiple Vitamin (MULTIVITAMIN ADULT PO) Take 1 tablet by mouth 1 (one) time each day. Active fluticasone (Flonase) 50 MCG/ACT nasal sprayIndications:Seaso nal allergic rhinitis due to pollen Administer 1 spray into each nostril Daily PRN 9.9 mL 5 024 Active carboxymethylcellulose (Refresh Plus) 0.5 % ophthalmic solution 1 drop if needed for dry eyes Active cetirizine (ZyrTEC) 10 MG tablet Take 10 mg by mouth Daily as needed for allergies Active omeprazole (PriLOSEC) [address] capsuleIndications:Gas tro-esophageal reflux disease without esophagitis Take 1 capsule (40 mg) by mouth in the morning. Do not crush or chew. 90 capsule 3 025 Active vwoztqxpbrmtmca-YK-KU 60-15-400 MG tabletIndications:Acut e non-recurrent pansinusitis Take 1 tablet by mouth every 6 (six) hours if needed (Cough) 28 tablet 025 Active methylPREDNISolone (Medrol Dospak) 4 MG tabletsIndications:Cap sulitis of metatarsophalangeal (MTP) joint of left foot Follow schedule on MEDROL PACK package instructions to be used as directed 21 tablet 025 Active ibuprofen 800 MG tabletIndications:Gout of left foot, unspecified cause, unspecified chronicity Take 1 tablet (800 mg) by mouth in the morning and 1 tablet (800 mg) in the evening and 1 tablet (800 mg) before bedtime. 90 tablet 025 2024 Active colchicine 0.6 MG tabletIndications:Gout of left foot, unspecified cause, unspecified chronicity Take 2 tablets (0.6 mg) y for 1st day then one tablet a day for the next 4 days, hold for GI upset. 6 tablet 025 2025 Active Active Problems Problem Noted Date Diagnosed Date Tendinitis of right forearm 07/28/2024 Eye irritation 07/28/2024 Atopic dermatitis 04/04/2024 Globus sensation 04/04/2024 Acute allergic conjunctivitis, bilateral 023 Difficulty sleeping 07/28/2023 Allergic rhinitis 07/28/2023 Acute medial meniscus tear of left knee 05/03/20 23 Allergic cough 05/03/2023 Bilateral tinnitus 05/03/2023 Chondromalacia of patella, left 05/03/2023 Conductive hearing loss of l eft ear with unrestricted hearing of right ear 05/03/2023 Derangement of left knee 05/03/2023 Gastroesophageal reflux disease without esophagi tis 05/03/2023 Lumbar paraspinal muscle spasm 05/03/2023 Patellar tendinitis, left knee 05/03/2023 Sensorineural hearing loss 05/03/2023 Encounters Date Type Department Care Team Description 09/12/2025 4:10 PM EDT Office Visit [facility] [place] [facility] [address] [place] [address] Reddy Norton DPM Capsulitis of metatarsophalangeal (MTP) joint of left foot (Primary Dx); Hallux rigidus of left foot; Gout of left foot, unspecified cause, unspecified chronicity; Plantar fasciitis 09/12/2025 Bamboo flowsheet [facility] [place] [facility] [address] [place] [address] Reddy Norton DPM 09/06/2025 9:25 AM EDT Ancillary Procedure [facility] 112 [facility] 120 [place] [address] 09/06/2025 9:00 AM EDT Office Visit [facility] 112 [facility] 120 [place] [address] Reddy Norton, BASSAM Capsulitis of metatarsophalangeal (MTP) joint of left foot (Primary Dx); Plantar fasciitis; Gout of left foot, unspecified cause, unspecified chronicity; Hallux rigidus of left foot 09/06/2025 Travel 09/05/2025 9:45 AM EDT Office Visit [facility] [address] [facility] 110 [place] [address] Jr. Fabricio Knight DO Flexor carpi ulnaris tendinitis (Primary Dx) 09/05/2025 Bamboo flowsheet [facility] [place] [facility] [address] [facility] 110 [place] [address] Jr. Fabricio Knight, 09/05/2025 Travel 09/03/2025 8:30 AM EDT Procedure Visit [facility] [address] [place] [address] Tendinitis of right forearm; Arm weakness; Numbness; Arm pain, right 09/03/2025 Results Follow-Up [facility] [address] [place] [address] Daniele Kasper PA EMG AND NERVE CONDUCTION STUDY 09/03/2025 Telephone [facility] [address] [facility] [place] [address] Reddy Norton DPM 09/03/2025 Travel 08/27/2025 9:30 AM EDT Office Visit [facility] [address] [place] [address] Daniele Kasper PA Pain in right forearm (Primary Dx); Arm weakness; Numbness; Arm pain, right 08/27/2025 Bamboo flowsheet [facility] [place] [facility] [address] [facility] 110 [place] [address] Daniele Kasper, AMITA 08/27/2025 Travel 08/22/2025 Orders Only [facility] [place] [facility] [address] [facility] 110 [place] [address] Left foot pain 08/22/2025 Telephone [facility] [place] [facility] 112 [facility] 110 [place] [address] Carla Floyd PA 08/16/2025 8:30 AM EDT Office Visit [facility] 112 [facility] 120 [place] [address] Reddy Norton DPM Capsulitis of metatarsophalangeal (MTP) joint of left foot (Primary Dx); Gout of left foot, unspecified cause, unspecified chronicity; Plantar fasciitis 08/16/2025 Bamboo flowsheet [facility] [address] [facility] 120 [place] [address] Reddy Norton DPM 08/16/2025 Travel 07/26/2025 9:20 AM EDT Office Visit [facility] [address] [facility] 120 [place] [address] Reddy Norton DPM Capsulitis of metatarsophalangeal (MTP) joint of left foot (Primary Dx); Gout of left foot, unspecified cause, unspecified chronicity; Plantar fasciitis 07/26/2025 Abstract [facility] [address] [facility] 120 [place] [address] Reddy Norton DPM 07/26/2025 Abstract [facility] [address] [facility] 120 [place] [address] Reddy Norton DPM 07/26/2025 Bamboo flowsheet [facility] [address] [facility] 120 [place] [address] Reddy Norton DPM 07/26/2025 Travel 07/09/2025 Abstract [facility] [address] [address] [place] [address] Reddy Norton DPM 06/21/2025 8:40 AM EDT Clinical Support [facility] 112 [facility] [place] [address] Reddy Norton, BASSAM Capsulitis of metatarsophalangeal (MTP) joint of left foot (Primary Dx); Gout of left foot, unspecified cause, unspecified chronicity; Plantar fasciitis 06/21/2025 Bamboo flowsheet [facility] [address] [address] [place] [address] Reddy Norton DPM 06/21/2025 Travel from Last 3 Months Family History Medical History Relation Name Comments Colon cancer Other Relation Name Status Comments Brother Alive 2 brothers Father Alive Mother Alive Other Mother side of family Sister Alive 1 sister Social History Tobacco Use Types Packs/Day Years [...] Sign Reading Time Taken Comments Blood Pressure 120/82 05/22/2025 11:09 AM EDT Pulse 57 05/22/2025 11:09 AM EDT Temperature 37 C (98.6 F) 04/26/2025 1:35 PM EDT Respiratory Rate 18 09/12/2025 4:30 PM EDT Oxygen Saturation 98% 05/22/2025 11:09 AM EDT Inhaled Oxygen Concentration - - Weight 111 kg (245 lb) 09/12/2025 4:30 PM EDT Height 190.5 cm (6' 3 ) 09/12/2025 4:30 PM EDT Body Mass Index 30.62 09/12/2025 4:30 PM EDT Plan of Treatment Upcoming Encounters Date Type Department Care Team (Late st Contact Info) Description 09/27/2025 10:50 AM EDT Office Visit [facility] [address] [place] [address] Reddy Norton DPM 3006 [facility] [address] 5 [place] [address] 10/17/2025 8:30 AM EST Office Visit [facility] [address] [place] [address] Jr. Fabricio Knight, DO [address] [place] [address] 01/29/2026 8:35 AM EST Office Visit [facility] [place] [facility] [address] [place] [address] Dali Hewitt, CANDY MAKER-HAND SEWER [address] [place] [address] Health Maintenance Due Date Last Done Comments Influenza Vaccine (#1) 2025 Procedures Procedure Name Priority Date/Time Associated Diagnosis Comments XR FOOT 3+ VIEWS LEFT Routine 09/06/2025 9:20 AM EDT Capsulitis of metatarsophalangeal (MTP) joint of left foot EMG AND NERVE CONDUCTION STUDY Routine 09/03/2025 2:02 PM EDT Arm weakness Numbness Arm pain, right from Last 3 Months Results * XR foot 3+ views left (09/06/2025 9:20 AM EDT) Anatomical Region Laterality Modality Lower Extremities, Foot Left [facility] Imaging Narrative 09/06/2025 9:28 AM EDT Imaging Result: 1st MPJ has slight narrowing of the 1st MPJ with slight medial deviation of the 1st metatarsal and very mild HAV deformity with negative fractures identified us Reddy Norton DPM IMG XR PROCEDURES Final Res ult * EMG AND NERVE CONDUCTION STUDY (09/03/2025 2:02 PM EDT) us Daniele LEVI NEUROLOGY ORDERABLES Final Re sult from Last 3 Months Insurance [place] [employer] Care Teams Oral Surgeon Relationship Specialty Start Date End Date Janeen Levi MD [address] [facility] 110 [place] [address] PCP - General Family Medicine 05/03/23 Janeen Levi MD [address] [facility] 110 [place] [address] PCP - [facility] Alexey DOOR LINER HELPER 02/28/24
--- OUTSIDE RECORDS SUMMARY | 2025-09-13 09:54 | XMS_ITS | Encounter Summary ---
Author Organization [facility] Address [address] [place] [address] Care Team Providers Care Rn Operating Room Name Role Phone Janeen Levi MD Primary Care Provider [phone] Janeen Levi MD Unavailable Encounter Details Date Type Department Care Team (Latest Contact Info) Description 09/03/2025 Travel Social History Tobacco Use Types Packs/Day [...] [facility] [address] [place] [id number] Reddy Norton, DPM [address] [facility] [address] [place] [address] 10/17/2025 8:30 AM EST Office Visit [facility] [address] [facility] [address] [place] [phone] Jr. Fabricio Knight, DO [address] [place] [address] 01/29/2026 8:35 AM EST Office [facility] [address] [place] [phone] Dali Hewitt APRN-CLIENT SUCCESS SPECIALIST [address] [place] [address] documented as of this encounter Visit Diagnoses Not on filedocumented in this encounter Care Teams Rn Operating Room Relationship Specialty Start Date End Date Janeen Levi MD [address] [facility] [address] [place] [address] PCP - General Family Medicine 05/03/23 Janeen Levi MD [address] [facility] [address] [place] [address] PCP - SASKIA Blackburn [employer] 02/28/24 documented as of this encounter
--- OUTSIDE RECORDS SUMMARY | 2025-09-13 09:55 | XMS_ITS | CCD ---
Author Organization [facility] Care Team Providers Care Cut To Length Operator Name Role Phone DR SERGIO KASPER Admitting Unavailable MADDY, DR HILL Attending Unavailable [facility] Primary Care Unavailable MADDY, DR HILL Consulting Unavailable Mallory Houston Unavailable CARLA CISNEROS Primary Care Physician CARLA CISNEROS Primary Care Unavailable Dorota Vann Admitting Unavaila Dorota Yang Attending Unavaila Dorota Yang Referring Unavaila CARLA Sinha Primary Care Unavailable Dorota Vann Attending Unavaila Dorota Yang Attending Unavaila CARLA Sinha Primary Care Unavailable Janeen Levi MD Primary Care Provider [phone] Janeen Levi MD Unavailable BRYANT MCLAUGHLIN Attending Unavailable CARLA CISNEROS Attending Unavailable CARLA CISNEROS Referring Unavailable CARLA CISNEROS Attending Unavailable ZAIDA WYATT Attending Unavailable REDDY SINGH Attending Unavailable ZAIDA WYATT Referring Unavailable REDDY SINGH Attending Unavailable REDDY SINGH Attending Unavailable REDDY SINGH Attending Unavailable SERGIO KASPER Attending Unavailable CARLA CISNEROS Referring Unavailable SERGIO KASPER Referring Unavailable JR. KNIGHT GEORGE C Attending Unavaila REDDY Calabrese Attending Unavailable REDDY SINGH Referring Unavailable Allergies Allergy Classification Reported Allergen(s) Allergy Type Date of Onset Reaction(s) Facility (1 source) Erythromycin Drug Allergy [facility] Repository (4 sources) Penicillin; Translations: [penicillin] Drug Allergy Unknown [facility] Repository (1 source) Azithromycin Drug Allergy Unknown [employer] Other (2 sources) No Known Medication Allergies; Translations: [No Known Medication Allergies] Propensity to adverse reactions (disorder) [facility] Repository Medications Current Medications Medication Drug Class(es) Dates Sig (Normalized) Sig (Original) azelastine hydrochloride 0.137 mg/actuat metered dose nasal spray (6 sources) Histamine-1 Receptor Antagonist Start: 08-04-2024 take 30 mL nasal route at bedtime azelastine hydrochloride 137 mcg spray 30 mL, 0 Refill(s), USE 1 SPRAY IN AFFECTED NOSTRIL(S) IN THE MORNING AND BEFORE BEDTIME FOR 14 DAYS, Refills(s) 0 Start Date: 08/04/24 Status: Ordered Start: 04-04-2024 End: 07-28-2024 take 1 spray(s) nasal route in the morning Azelastine HCl 137 MCG/SPRAY solution Indications: Seasonal allergic rhinitis due to pollen Administer 1 spray into affected nostril(s) in the morning and 1 spray before bedtime. Do all this for 14 days. 30 mL 2 04/04/2024 07/28/2024 Discontinued (Other) carboxymethylcellulose sodium 5 mg/ml ophthalmic solution (20 sources) carboxymethylcel lulose (Refresh Plus) 0.5 % ophthalmic solution 1 drop if needed for dry eyes Active cefdinir 300 mg oral capsule (3 sources) Cephalosporin Antibacterial Star t: 052 9-20 25 End: 8-20 25 take 1 capsule by mouth in the morning cefdinir (Omnicef) 300 MG capsule Indications: Acute left otitis media Take 1 capsule (300 mg) by mouth in the morning and 1 capsule (300 mg) before bedtime. Do all this for 10 days. 20 capsule 04/26/2025 2025 Active Start: 02-01-2025 End: 02-08-2025 take 1 capsule by mouth in the morning cefdinir (Omnicef) 300 MG capsule Indications: Acute non-recurrent pansinusitis Take 1 capsule (300 mg) by mouth in the morning and 1 capsule (300 mg) before bedtime. Do all this for 7 days. 14 capsule 02/01/2025 02/08/2025 Active cetirizine hydrochloride 10 mg oral tablet (20 sources) Histamine-1 Receptor Antagonist Start: 04-04-2024 End: 07-28-2024 take 1 tablet by mouth at bedtime cetirizine (ZyrTEC) 10 MG tablet Indications: Seasonal allergic rhinitis due to pollen Take 1 tablet (10 mg) by mouth at bedtime 90 tablet 3 04/04/2024 07/28/2024 Discontinued (Other) colchicine 0.6 mg oral tablet (2 sources) Start: 09-12-2025 End: 12-11-2025 colchicine 0.6 MG tablet Indications: Gout of left foot, unspecified cause, unspecified chronicity Take 2 tablets (0.6 mg) y for 1st day then one tablet a day for the next 4 days, hold for GI upset. 6 tablet 09/12/2025 12/11/2025 Active dextromethorphan hydrobromide 15 mg / guaiFENesin 400 mg / pseudoephedrine hydrochloride 60 mg oral tablet (20 sources) alpha-Adrenergic Agonist, Uncompetitive D-ildueb-O-aspartat e Receptor Antagonist, Sigma-1 Agonist Start: 04-26-2025 take 1 tablet by mouth every six hours vtmmjaeehlsqagq-QO-Z G 60-15-400 MG tablet Indications: Acute non-recurrent pansinusitis Take 1 tablet by mouth every 6 (six) hours if needed (Cough) 28 tablet 04/26/2025 Active doxycycline hyclate 100 mg oral tablet (1 source) Tetracycline-class Drug Start: 07-21-2023 take 1 tablet by mouth every twelve hours Doxycycline Hyclate 100 MG 1 tablet Orally Twice a day for 10 day(s) Jun, Active famotidine 20 mg oral tablet (11 sources) Histamine-2 Receptor Antagonist Start: 07-28-2024 End: 01-26-2025 take 1 tablet by mouth at bedtime famotidine (Pepcid) 20 MG tablet Indications: Gastroesophageal reflux disease without esophagitis Take 1 tablet (20 mg) by mouth at bedtime 30 tablet 2 07/28/2024 01/26/2025 Discontinued (Therapy completed) fluticasone propionate 0.05 mg/actuat metered dose nasal spray (20 sources) Corticosteroid Start: 04-04-2024 take 1 spray(s) nasal route once daily as needed fluticasone (Flonase) 50 MCG/ACT nasal spray Indications: Seasonal allergic rhinitis due to pollen Administer 1 spray into each nostril Daily PRN 9.9 mL 5 04/04/2024 Active Start: 07-21-2023 take 2 spray(s) nasa l route once daily Fluticasone Propionate 50 MCG/ACT 2 sprays Nasally Once a day for 14 day(s) Jun, Active Start: 07-20-2023 fluticasone Na rachell 0.05 mg/inh Montara 1 spray(s), Nasal, Daily, Refill(s) 0, Nasal, 0 Refill(s), Allergy symptoms Start Date: 07/20/23 Status: Ordered ibuprofen 800 mg oral tablet (9 sources) Nonsteroidal Anti-inflammatory Drug Start: 09-03-2025 End: 10-03-2025 take 1 tablet by mouth in the morning, then take 1 tablet by mouth in the evening, then take 1 tablet by mouth at bedtime ibuprofen 800 MG tablet Indications: Gout of left foot, unspecified cause, unspecified chronicity Take 1 tablet (800 mg) by mouth in the morning and 1 tablet (800 mg) in the evening and 1 tablet (800 mg) before bedtime. 90 tablet 09/03/2025 10/03/2025 Active loratadine 10 mg oral tablet (11 sources) Start: 07-28-2024 End: 01-26-2025 take 1 tablet by mouth once daily loratadine (Claritin) 10 MG tablet Indications: Allergic cough Take 1 tablet (10 mg) by mouth Daily 30 tablet 2 07/28/2024 01/26/2025 Discontinued (Therapy completed) methylPREDNISolone (14 sources) Corticosteroid Start: 08-16-2025 methylPREDNISolone (Medrol Dospak) 4 MG tablets Indications: Capsulitis of metatarsophalangeal (MTP) joint of left foot Follow schedule on MEDROL PACK package instructions to be used as directed 21 tablet 08/16/2025 Active Multiple Vitamin (MULTIVITAMIN ADULT PO) (20 sources) take 1 tablet by mouth once daily Multiple Vitamin (MULTIVITAMIN ADULT PO) Take 1 tablet by mouth 1 (one) time each day. Active omeprazole 40 mg delayed release oral capsule (20 sources) Proton Pump Inhibitor Start: 04-26-2025 take 1 capsule by mouth in the morning omeprazole (PriLOSEC) [address] capsule Indications: Gastro-esophageal reflux disease without esophagitis Take 1 capsule (40 mg) by mouth in the morning. Do not crush or chew. 90 capsule 3 04/26/2025 Active Start: 08-07-2024 take 1 capsule by mo uth twice daily omeprazole 40 mg Cap-DR 40 mg = 1 cap(s), Oral, BID, # 60 cap(s), Refills(s) 4, Pharmacy: [facility]/pharmacy #[id number], 190.5, cm, 08/07/24 9:43:00 EDT, Height/Length Dosing, 111.6, kg, 08/07/24 9:43:00 EDT, Weight Dosing Start Date: 08/07/24 Status: Ordered Start: 04-25-2024 End: 04-26-2025 take 1 capsule by mouth once daily at breakfast omeprazole (PriLOSEC) [address] capsule Indications: Gastro-esophageal reflux disease without esophagitis TAKE 1 CAPSULE BY MOUTH BEFORE MORNING MEAL EVERY DAY 90 capsule 4 04/25/2024 04/26/2025 Discontinued (Reorder) take 1 capsule by mo [facility] once daily Omeprazole 40 MG 1 capsule 30 minutes before morning meal Orally Once a day Active polymyxin b 75570 unt/ml / trimethoprim 1 mg/ml ophthalmic solution (1 source) Dihydrofolate Reductase Inhibitor Antibacterial, Polymyxin-class Antibacterial Start: 07-21-2023 take 1 drop(s) into the eye(s) four times daily Polymyxin B-Trimethoprim 51678-8.1 UNIT/ML 1 drop(s) each eye Four times a day for 5 Jun, Active predniSONE 20 mg oral tablet (3 sources) Start: 05-24-2025 End: 06-03-2025 take 1 tablet by mouth twice daily, then take 1 tablet by mouth once daily at mealtime predniSONE (Deltasone) 20 MG tablet Indications: Left foot pain Take 1 tablet (20 mg) by mouth twice a day for 5 days, THEN 1 tablet (20 mg) Daily for 5 days. Take with food. 15 tablet 05/24/2025 06/03/2025 Active Start: 02-01-2025 End: 02-09-2025 take 1 tablet by mouth three times daily, then take 1 tablet by mouth twice daily, then take 1 tablet by mouth once daily predniSONE (Deltasone) 10 MG tablet Indications: Tendinitis of right forearm Take 1 tablet (10 mg) by mouth 3 (three) times a day for 3 days, THEN 1 tablet (10 mg) 2 (two) times a day for 3 days, THEN 1 tablet (10 mg) Daily for 3 days. 18 tablet 02/01/2025 02/09/2025 Active Start: 07-21-2023 take 1 tablet by meena th every twelve hours predniSONE 20 MG 1 tablet Orally bid for 5 day(s) Jun, Active Completed/Discontinued Medications Medication Drug Class(es) Dates Sig (Normalized) Sig (Original) brompheniramine maleate 0.4 mg/ml / dextromethorphan hydrobromide 2 mg/ml / pseudoephedrine hydrochloride 6 mg/ml oral solution (1 source) alpha-Adrenergic Agonist, Uncompetitive Z-cpmpvc-G-aspartate Receptor Antagonist, Sigma-1 Agonist Start: 01-05-2022 take 10 mL by mouth every six hours Pseudoeph-Bromp hen-DM 30-2-10 MG/5ML 10 mL Orally every 6 hours for 5 days Dec, Not-Taking ketorolac tromethamine 5 mg/ml ophthalmic solution (6 sources) Nonsteroidal Anti-inflammatory Drug, Cyclooxygenase Inhibitor Start: 08-04-2024 ketorolac Opth 0.5% Allison Refill(s) 0, 10 mL, 0 Refill(s), PLACE 1 DROP INTO BOTH EYES IN THE MORNING,AT NOON, IN THE EVENING, & BEFORE BEDTIME FOR 10 DAYS. Start Date: 08/04/24 Status: Ordered End: 07-28-2024 ketorolac (Acular) 0.5 % oph thalmic solution 1 drop in the morning and 1 drop at noon and 1 drop in the evening and 1 drop before bedtime. 07/28/2024 Discontinued (Other) ondansetron 4 mg oral tablet (1 source) Serotonin-3 Receptor Antagonist Start: 01-05-2022 take 1 tablet by mouth every eight hours as needed Ondansetron HCl 4 MG 1 tablet Orally every 8 hours as needed for 7 days Dec, Not-Taking oseltamivir 75 mg oral capsule (1 source) Neuraminidase Inhibitor Start: 01-05-2022 Oseltamivir Phosphate 75 MG as directed Orally Twice a day for 5 day(s) 07 Feb, 2022 Not-Taking Problems Active Problems Problem Classification Problem Date Documented Date Episodic/Chronic Acquired foot deformities (4 sources) Toe joint rigid; Translations: [Hallux rigidus, left foot] 09-06-2025 Chronic Allergic reactions (20 sources) Atopic dermatitis; Translations: [Atopic dermatitis, unspecified] Onset: 4 08-04-2024 Chronic Esophageal disorders (20 sources) Gastroesophageal reflux disease without esophagitis; Translations: [Gastro-esophageal reflux disease without esophagitis] Onset: Chronic Gout and other crystal arthropathies (14 sources) Acute gout; Translations: [Gout, unspecified] 05-22-2025 Chronic Joint disorders and dislocations; trauma-related (20 sources) Chondromalacia of left patella; Translations: [Chondromalacia patellae, left knee] Onset: 3 05-03-2023 Chronic Other and unspecified benign neoplasm (2 sources) Melanocytic nevus of trunk; Translations: [Melanocytic nevi of trunk] 01-26-2025 Episodic Other circulatory disease (2 sources) Spider nevus; Translations: [Nevus, non-neoplastic] 01-26-2025 Episodic Other connective tissue disease (5 sources) Pain in left foot; Translations: [Pain in left foot] 05-22-2025 Episodic Other connective tissue disease (11 sources) Capsulitis of metatarsophalangeal joint of left foot; Translations: [Other enthesopathy of left foot and ankle] 06-05-2025 Episodic Other connective tissue disease (11 sources) Plantar fasciitis; Translations: [Plantar fascial fibromatosis] 06-05-2025 Episodic Other connective tissue disease (4 sources) Muscle weakness of upper limb; Translations: [Other symptoms and signs involving the musculoskeletal system] 08-27-2025 Episodic Other connective tissue disease (4 sources) Pain in right arm; Translations: [Pain in right arm] 08-27-2025 Episodic Other connective tissue disease (2 sources) Pain in left arm 08-27-2025 Episodic Other connective tissue disease (2 sources) Pain of right forearm; Translations: [Pain in right forearm] 08-27-2025 Episodic Other connective tissue disease (4 sources) Tendinitis of flexor carpi ulnaris; Translations: [Other enthesopathies, not elsewhere classified] 09-05-2025 Episodic Other ear and sense organ disorders (20 sources) Conductive hearing loss, unilateral, left ear, with unrestricted hearing on the contralateral side; Translations: [Conductive hearing loss, unilateral] Onset: 3 05-03-2023 Chronic Other ear and sense organ disorders (20 sources) Sensorineural hearing loss; Translations: [Unspecified sensorineural hearing loss] Onset: 3 05-03-2023 Chronic Other nervous system disorders (4 sources) Numbness; Translations: [Anesthesia of skin] 08-27-2025 Episodic Other non-traumatic joint disorders (4 sources) Effusion, left knee; Translations: [EFFUSION LEFT KNEE] Onset: Episodic Other skin disorders (2 sources) Epidermoid cyst; Translations: [Epidermal cyst] 01-26-2025 Episodic Other skin disorders (2 sources) Seborrheic keratosis; Translations: [Other seborrheic keratosis] 01-26-2025 Episodic Other upper respiratory disease (20 sources) Allergic rhinitis; Translations: [Allergic rhinitis, unspecified] Onset: 3 08-04-2024 Chronic Other upper respiratory infections (4 sources) Acute sinusitis, unspecified; Translations: [Acute pansinusitis] Episodic Otitis media and related conditions (2 sources) Acute left otitis media; Translations: [Otitis media, unspecified, left ear] 04-26-2025 Episodic Unclassified (3 sources) Conductive hearing loss of left ear with normal hearing on right side 08-04-2024 Unclassified (3 sources) Patient encounter status 06-08-2019 Past or Other Problems Problem Classification Problem Date Documented Da te Episodic/Chronic Inflammation; infection of eye (except that caused by tuberculosis or sexually transmitteddisease) (20 sources) Unspecified conjunctivitis; Translations: [Acute atopic conjunctivitis] Onset: 07-28-2023 Episodic Joint disorders and dislocations; trauma-related (20 sources) Acute tear of medial meniscus of left knee; Translations: [Other tear of medial meniscus, current injury, left knee, initial encounter] Onset: 05-03-2023 05-03-2023 Episodic Other connective tissue disease (20 sources) Tendonitis of left patellar tendon; Translations: [Patellar tendinitis, left knee] Onset: 05-03-2023 05-03-2023 Episodic Other connective tissue disease (20 sources) Tendinitis of right forearm; Translations: [Other enthesopathies, not elsewhere classified] Onset: 07-28-2024 07-28-2024 Episodic Other ear and sense organ disorders (20 sources) Bilateral tinnitus; Translations: [Tinnitus, bilateral] Onset: 05-03-2023 08-04-2024 Episodic Other eye disorders (20 sources) Disorder of eye; Translations: [Other specified disorders of eye and adnexa] Onset: 07-28-2024 07-28-2024 Episodic Other gastrointestinal disorders (2 sources) Constipation alternates with diarrhea; Translations: [Other specified symptoms and signs involving the digestive system and abdomen] 07-28-2024 Episodic Other lower respiratory disease (20 sources) Allergic cough; Translations: [Allergic cough] Onset: 05-03-2023 05-03-2023 Episodic Other upper respiratory disease (20 sources) Feeling of lump in throat; Translations: [Globus sensation] Onset: 04-04-2024 08-04-2024 Episodic Residual codes; unclassified (20 sources) Difficulty sleeping ; Translations: [Sleep disorder, unspecified] Onset: 07-28-2023 07-28-2023 Episodic Spondylosis; intervertebral disc disorders; other back problems (20 sources) Spasm of muscle of lower back; Translations: [Muscle spasm of back] Onset: 05-03-2023 05-03-2023 Episodic Unclassified (2 sources) Foreign body sensation; Translations: [Foreign body sensation, throat] Onset: 08-04-2024 Results Test Name Value Interpretation Reference Range Facility XR Foot - left 3 [facility] Imaging Result: 1st MPJ has slight narrowing of the 1st MPJ with slight medial deviation of the 1st metatarsal and very mild HAV deformity with negative fractures identified [facility] Radiology Study observation (narrative) [facility] ALL URIC ACIDon 05-22-2025 Urate [Mass/Vol] 6.8 mg/dL 3.5 - 7.2 mg/dL [facility] XR FOOT LT MIN 3Von 05-22-[address] [address] XRay Report Signed Patient: ANDREA SCHOFIELD MR#: [id number] : 1985 Acct:[id number] Age/Sex: 40 / M ADM Date: 05/22/25 Loc: LAB Attending Dr: ZAIDA WYATT Ordering Physician: ZAIDA WYATT Date of Service: 05/22/25 Procedure(s): XR foot LT min 3V Accession Number(s): [id number] cc: CARLA CISENROS ; ZAIDA WYATT The [place] [address] Patient Name: ANDREA SCHOFIELD MRN: [facility]:[id number] date: 1985 Sex: M Assigned Patient Location: LAB Current Patient Location: LAB Accession/Order Number: [id number] Exam Date: 05/22/2025 13:01 Report Date: 05/22/2025 13:03 At the request of: ZAIDA WYATT Procedure: XR foot LT min 3V LEFT FOOT - 3 views CLINICAL HISTORY: Medial left foot pain. COMPARISON: None FINDINGS: No focal soft tissue abnormality. No acute bony process is seen. Presumed remote posttraumatic changes involving the distal phalanx of the first digit. Joint spaces appear maintained. No bony erosions. XR/XR foot LT min 3V IMPRESSION: NO ACUTE BONY PROCESS. Impression dictated by: Dimitry Love Jr., D.O. 05/22/2025 1:03 PM Dictation Location: [place] [address] Electronically authenticated by: [id number] Y Date: 05/22/2025 13:03 Dictated By: Dimitry Love M.D. Signed By: 05/22/25 1305 DD/ 1303 TD/TT: Penology Professor: [facility] Radiology Radiologlilian bernard MD - 05/22/2025 The [place] [id number] XRay Report Signed Patient: ANDREA SCHOFIELD MR#: [id number] : 1985 Acct:[id number] Age/Sex: 40 / M ADM Date: 05/22/25 Loc: LAB Attending Dr: ZAIDA WYATT Ordering Physician: ZAIDA WYATT Date of Service: 05/22/25 Procedure(s): XR foot LT min 3V Accession Number(s): [id number] cc: CARLA CISNEROS ; ZAIDA WYATT [address] [address] Patient Name: ANDREA SCHOFIELD MRN: [id number] date: 1985 Sex: M Assigned Patient Location: LAB Current Patient Location: LAB Accession/Order Number: [id number] Exam Date: 05/22/2025 13:01 Report Date: 05/22/2025 13:03 At the request of: ZAIDA WYATT Procedure: XR foot LT min 3V LEFT FOOT - 3 views CLINICAL HISTORY: Medial left foot pain. COMPARISON: None FINDINGS: No focal soft tissue abnormality. No acute bony process is seen. Presumed remote posttraumatic changes involving the distal phalanx of the first digit. Joint spaces appear maintained. No bony erosions. XR/XR foot LT min 3V IMPRESSION: NO ACUTE BONY PROCESS. Impression dictated by: Dimitry Love Jr., D.O. 05/22/2025 1:03 PM Dictation Location: [place] [address] Electronically authenticated by: [id number] Y Date: 05/22/2025 13:03 Dictated By: Dimitry Love M.D. Signed By: 05/22/25 1305 DD/ 1303 TD/TT: Penology Professor: [facility] Radiology Study observation (narrative) [facility] XR FOOT LT MIN 3VOrdered By: Radiologist Radiology on 05-22-2025 [facility] Work Phone: MR FOREARM RIGHT WO IV CONTR David 03-01-2025 MR FOREARM RIGHT WO IV CONTRAST EXAMINATION: MR FOREARM RIGHT WO IV CONTRAST HISTORY: Forearm pain. COMPARISON: None available TECHNIQUE: Multiplanar multisequence MRI of the right forearm was performed without contrast FINDINGS: The myotendinous structures are intact. Normal signal of the forearm musculature. Visualized bones demonstrate normal signal. Neurovascular structures are within normal limits. No soft tissue mass. IMPRESSION: Mild tenderness structures are intact. No soft tissue mass. ELECTRONICALLY SIGNED BY: DO David Drummond Not Available Gastroenterology Office/Clin ic Noteon 09-15-2024 Gastroenterology Office/Clinic Note Gastroenterology Office/Clinic Note Chief Complaint EGD results HPI Staff Patient is a(n) 39 year old male who presents today for a follow-up to EGD on 08/16/24. Any dysphagia since EGD? No Denies blood thinners. Denies GLP-1 agonists. Last visit 08/07/24 w/Dr. Vann: Assessment/Plan 1. GERD (gastroesophageal reflux disease) (K21.9: Gastro-esophageal reflux disease without esophagitis) Describing heartburn, odynophagia and occasional dysphagia to solids in the past 5 years Omeprazole helps some We discussed differential include EOE, Schatzki ring, peptic stricture... Will proceed with EGD with random biopsy and possible dilation based on findings 2. Globus sensation (R09.A2: Foreign body sensation, throat) Increase omeprazole Will discuss further therapies if needed or dilation if needed EGD: Impression and Plan 1. Esophageal landmarks identified, normal examined esophagus. Empiric dilation was done with Hanson 56 [place] with no resistance. Post dilation there was no mucosal disruption. Random esophageal biopsies were also taken to rule out eosinophilic esophagitis 2. Few small fundic land polyps in the body and fundus of the stomach noted. Otherwise normal examined stomach. Random biopsies were taken to rule out H. pylori 3. Minimal patchy erythema in the duodenal bulb, otherwise normal examined duodenum Recommendations: -If dysphagia persist, consider esophageal manometry Pathology: Final Diagnosis (Verified) A: STOMACH, BIOPSY: - Antral and oxyntic-type gastric mucosa with mild chronic inactive gastritis. - No Helicobacter pylori microorganisms identified with immunohistochemical stain. B: ESOPHAGUS, BIOPSY: - Esophageal squamous epithelium consistent with reflux esophagitis (2 eosinophils/HPF). - No glandular mucosa present. Review of Systems PHQ Score Initial Depression Screen Score: 0 SCORE Physical Exam Vitals & Measurements HR: 55(Peripheral) BP: 129/72 HT: 75 in HT: 190 cm WT: 111.5 kg WT: 245.3 lb BMI: 30.89 Assessment/Plan 1. GERD (gastroesophageal reflux disease) (K21.9: Gastro-esophageal reflux disease without esophagitis) Described heartburn, odynophagia and occasional dysphagia to solids and globus sensation in the past 5 years Omeprazole 40 mg twice daily did help significantly with odynophagia, dysphagia, still noticing some globus sensation, not sure if that also he has postnasal drip We discussed that there is no finding that requires him to have long-term PPI based on EGD, no EOE or Talbert's esophagus, no ulcers We will start to wean off omeprazole as he wants to take less medicine if possible Start 40 daily and then in 4 weeks we can do it 20 daily and then he can do a trial with a PPI We discussed lifestyle modifications for heartburn If symptoms persist we can consider Jaimes in the future If dysphagia worsen in the future we can consider manometry 2. Globus sensation (R09.A2: Foreign body sensation, throat) Did not improve with dilation We discussed could be acid reflux but omeprazole twice a day did not improve it We also discussed other therapies like gabapentin, he does not want to take medicines for it Overall reassurance Follow-up No qualifying data available Problem List/Past Medical History Ongoing Allergic rhinitis Atopic dermatitis Bilateral tinnitus Conductive hearing loss of left ear with unrestricted hearing of right ear Encounter for sterilization GERD (gastroesophageal reflux disease) Globus sensation Historical No qualifying data Procedure/Surgical History EGD - esophagogastroduodenoscopy (08/16/2024), Bilateral vasectomy (05/01/2019), Eustachian tube, Tonsillectomy. Medications azelastine hydrochloride 137 mcg spray, Self Directed famotidine 20 mg Tab, 20 mg= 1 tab(s), Oral, Once a day (at bedtime) fluticasone Nasal 0.05 mg/inh Montara, 1 spray(s), Nasal, Daily, Self Directed ketorolac Opth 0.5% Allison, Not taking loratadine 10 mg Tab, 10 mg= 1 tab(s), Oral, Daily omeprazole 40 mg Cap-DR, 40 mg= 1 cap(s), Oral, BID, 4 refills Allergies No Known Medication Allergies Social History Alcohol - Denies Alcohol Use, 06/08/2019 Tobacco - Denies Tobacco Use, 06/08/2019 Never (less than 100 in lifetime) Tobacco Use:. Never Smokeless Tobacco Use:., 09/15/2024 Family History Patient was adopted Immunizations Vaccine Date Status Comments influenza virus vaccine, inactivated - Not Given Patient Refuses Normal [facility] Comment on above: Result Comment: Elec tronically Signed By: Soo NGUYEN, Dorota Velázquez\.br\Date and Time Signed: 09/15/24 09:13 EDT Surgical Pathology Reporton 08-23-2024 Surgical Pathology Report [facility] [place] [address]- Surgical Pathology Report Collected Date/Time: 08/16/2024 14:33 EDT Pathologist: Abdullahi Mathis MD Received Date/Time: 08/17/2024 09:01 EDT Soo NGUYEN, Dorota Vann MD, Dorota Velázquez 07 Surgical Pathology Report - 08/23/2024 12:54 EDT - Auth (Verified) Final Diagnosis A: STOMACH, BIOPSY: - Antral and oxyntic-type gastric mucosa with mild chronic inactive gastritis. - No Helicobacter pylori microorganisms identified with immunohistochemical stain. B: ESOPHAGUS, BIOPSY: - Esophageal squamous epithelium consistent with reflux esophagitis (2 eosinophils/HPF). - No glandular mucosa present. (Electronic Signature) Yan. Delfina MD 08/23/2024 12:54 Clinical Information Pre-Op Diagnosis: GERD, globus sensation Procedure: EGD Post-Op Diagnosis: 1. Esophageal landmarks identified, normal examined esophagus. Empiric dilation was done with Hanson 56 [place] with no resistance. Post dilation there was no mucosal disruption. Random esophageal biopsies were also taken to rule out eosinophilic esophagitis 2. Few small fundic land polyps in the body and fundus of the stomach noted. Otherwise normal examined stomach. Random biopsies were taken to rule out H. pylori 3. Minimal patchy erythema in the duodenal bulb, otherwise normal examined duodenum Specimen(s) Received A: Gastric biopsy B: Esophagus biopsy Gross Description A: Received in formalin labeled with patient name, number, and gastric biopsy are four fragments of orozco tissue ranging from 0.1 to 0.2 cm in greatest dimension. Specimen is entirely submitted in one cassette. B: Received in formalin labeled with patient name, number, and esophagus biopsy are three fragments of orozco tissue each measuring 0.1 cm in greatest dimension. Specimen is entirely submitted in one cassette. (DC) DC:[facility] Microscopic Description A&B: Microscopic examination performed unless gross only specified. The use of one or more reagents in the above tests is regulated as an analyte specific reagent (ASR). The test or tests are ordered following initial H&E microscopic examination. The performance characteristics were determined by the Laboratory of [facility]. They have not been cleared or approved by the US Food and Drug Administration. The FDA has determined that such clearance or approval is not necessary. These tests are used for clinical purposes. They should not be regarded as investigational or for research. Appropriate positive and negative controls are performed and are acceptable. Normal [facility] Comment on above: Performed By: #### [id number] #### [facility] [address] [place] [address] Main OR Intraoperative Recor don 08-17-2024 Main OR Intraoperative Record Main OR Intraoperative Record IntraOp Document Type FT Summary Primary Physician: Dorota Vann MD Finalized Date/Time: 08/17/24 09:43:39 Pt. Name: ANDREA SCHOFIELD/Sex: 1985 Male Med Rec #: [id number] Physician: Dorota Vann MD Financial #: [id number] Pt. Type: O Room/Bed: / Admit/Disch: 08/16/24 13:08:35 - 08/16/24 23:59:59 Institution: Case Times FT Entry 1 Patient Times In Room 08/16/24 14:22:00 Out Room 08/16/24 14:36:00 Procedure Times Start 08/16/24 14:26:00 Stop 08/16/24 14:33:00 Anesthesia Times Start 08/16/24 14:22:00 Stop 08/16/24 14:36:00 Last Modified By: Inés White RN 08/16/24 14:35:24 General Comments: 08/17/24 Chart opened to review and send charges LRoth CSFA Case Attendance FT Entry 1 Entry 2 Entry 3 Case Attendee Deniz Louis RN, Page Lloyd Role Performed Anesthesiologist Frame Bander - Primary Scrub - Primary Body And Fender Worker Time In 08/16/24 14:22:00 08/16/24 14:22:00 08/16/24 14:22:00 Time Out 08/16/24 14:36:00 08/16/24 14:36:00 08/16/24 14:36:00 Procedure EGD(.) EGD(.) EGD(.) Comments Last Modified By: Inés White RN, RN, Inés Devine RN 08/16/24 14:35:25 08/16/24 14:35:25 08/16/24 14:35:25 Entry 4 Entry 5 Case Attendee India Cortez MD, Dorota Velázquez Role Performed Scrub - Primary Surgeon - Primary Time In 08/16/24 14:22:00 08/16/24 14:22:00 Time Out 08/16/24 14:36:00 08/16/24 14:36:00 Procedure EGD(.) EGD(.) Comments Last Modified By: Inés White RN, RN, Kristin N 08/16/24 14:35:25 08/16/24 14:35:25 Perioperative Protocols FT Pre-Care Text: Implements protective measures prior to operative or invasive procedure, confirms identity before the operative or invasive procedure, verifies operative procedure, surgical site, and laterality Entry 1 Procedure(s) EGD(.) Patient Identity Birthday, ID Band Check Verified (select at least 2): Consents / H and P Anesthesia Consent, Operative Site N/A Verified H&P, Surgery/Procedure Marking Verified Consent Surgical Site No Laterality Verified n/a Verified Procedure Verified Yes Correct Patient Yes Position Verified Availability Equipment, Medication Prep Dry n/a Verified (If Applicable) PreOp Antibiotic No Time Out Deniz Louis, Given Participants Inés White RN, Miles, Kirstyn K, Sparks, Micala E, Sarmini MD, Dorota Velázquez Time Out Complete 08/16/24 14:24:00 Outcomes Met? Yes Last Modified By: Inés White RN 08/16/24 14:24:04 Post-Care Text: The patient is free from signs and symptoms of injury caused by extraneous objects Allergy Information FT Pre-Care Text: Verifies allergies Entry 1 Allergies Reviewed? Yes Allergies Reviewed Self/Patient With Outcomes Met? Yes Last Modified By: Inés White RN 08/16/24 14:24:10 Post-Care Text: The patient received appropriate medication(s) safely administered during the perioperative period Surgical Procedures FT Entry 1 Procedure Description Procedure EGD Modifiers . Surgeon Description EGD with gastric biopsy, esophagus biopsy and esophageal dialation with a 56 fr. Hanson. Primary Procedure Yes Primary Surgeon Dorota Vann MD Start 08/16/24 14:26:00 Stop 08/16/24 14:33:00 Anesthesia Type General Surgical Service Gastroenterology Wound Class 2 - Clean-Contaminated Last Modified By: Inés White RN 08/16/24 14:33:06 General Case Data FT Pre-Care Text: Classifies surgical wound, implements aseptic technique, initiates traffic control Entry 1 Case Information OR ENDO 1 FT Case Level Level 2 Wound Class 2 - Clean-Contaminated Specialty Gastroenterology ASA Class 2 Preop Diagnosis GERD, globus sensation Postop Same As Preop No Postop Diagnosis Fundic gland polyps, Outcomes Met? Yes duodenitis Last Modified By: Inés White RN 08/16/24 14:32:52 Post-Care Text: The patient is free from signs and symptoms of infection Skin Assessment (Pre Procedure) FT Pre-Care Text: Implements protective measures to prevent skin/ tissue injury due to thermal or mechanical sources Evaluates for signs and symptoms of physical injury to skin and tissue Entry 1 Skin Integrity Intact, [place], Warm, & Skin Abnormality No Dry Outcomes Met? Yes Last Modified By: Inés White RN 08/16/24 14:24:39 Post-Care Text: The patient is free from signs and symptoms of injury caused by extraneous objects Patient Positioning FT Pre-Care Text: Identifies physical alterations that require additional precautions for procedure-specific positioning, verifies presence of prosthetics or corrective devices, positions the patient, evaluates the patient for signs and symptoms of injury as a result of positioning Entry 1 Procedure EGD(.) Body Position Lateral, right side up Feet Uncrossed? Yes (more content not included)... Normal [facility] Discharge Instructionson Discharge Instructions Discharge Instructions ANDREA SCHOFIELD :1985 Visit Date:08/16/2024 Inpatient Discharge Instructions Your Care Team Admitting Physician - Dorota Vann MD Referring Physician - Dorota Vann MD Reason for Your Visit GERD, GLOBUS SENSATION Your Diagnosis Dysphagia Tests Performed Pathology Tissue Exam -- Results Pending -- Please visit your patient portal for your results or contact your primary care physician. This Is Your Medications List azelastine nasal (azelastine hydrochloride 137 mcg spray) famotidine (famotidine 20 mg Tab) fluticasone nasal (fluticasone Nasal 0.05 mg/inh Montara) ketorolac ophthalmic (ketorolac Opth 0.5% Allison) loratadine (loratadine 10 mg Tab) omeprazole (omeprazole 40 mg Cap-DR) Procedure History Bilateral vasectomy (05/01/2019), Eustachian tube, Tonsillectomy. Discharge Vitals Temperature (Temporal Artery) 36.5 ?C Heart Rate (Monitored) 65 Respiratory Rate 20 Blood Pressure 118/71 Height 190.5 cm Weight 111.6 kg BMI 30.75 What to do next Instructions From Your Doctor Event Name Event Result Discharge Activity Resume normal activities in 24 hours Discharge Restrictions No driving for 24 hrs Discharge Diet(s) Regular Call Your Doctor For Persistent or heavy bleeding Discharge Instructions Discharge Instructions New Follow Up Appointments after Discharge Follow Up with Soo NGUYEN, JARED Ho, [facility] When: Comments: Office Will Call Date and Time of Follow-up Appt if needed. Where: [address] [place] [address], [address] [address] [phone] Medications What How Much When Instructions Next Dose Unchanged azelastine nasal (azelastine hydrochloride 137 mcg spray) 30 mL, 0 Refill(s), USE 1 SPRAY IN AFFECTED NOSTRIL(S) IN THE MORNING AND BEFORE BEDTIME FOR 14 DAYS Unchanged famotidine (famotidine 20 mg Tab) 1 Tablets By Mouth Once a day (at bedtime) Unchanged fluticasone nasal (fluticasone Nasal 0.05 mg/ inh Montara) 1 Sprays Nasal Inhalation Every day Nasal, 0 Refill(s) Unchanged ketorolac ophthalmic (ketorolac Opth 0.5% Allison) 10 mL, 0 Refill(s), PLACE 1 DROP INTO BOTH EYES IN THE MORNING,AT NOON, IN THE EVENING, & BEFORE BEDTIME FOR 10 DAYS. Unchanged loratadine (loratadine 10 mg Tab) 1 Tablets By Mouth Every day Unchanged omeprazole (omeprazole 40 mg Cap-DR) 1 Capsules By Mouth 2 times a day Test Results No qualifying data available. Allergies No Known Medication Allergies Problems Ongoing - Any problem that you are currently receiving treatment for. Allergic rhinitis Atopic dermatitis Bilateral tinnitus Conductive hearing loss of left ear with unrestricted hearing of right ear Encounter for sterilization GERD (gastroesophageal reflux disease) Globus sensation Education Materials Upper Endoscopy, Adult, Care After After the procedure, it is common to have a sore throat. It is also common to have: ? Mild stomach pain or discomfort. ? Bloating. ? Nausea. Follow these instructions at home: The instructions below may help you care for yourself at home. Your health care provider may give you more instructions. If you have questions, ask your health care provider. ? If you were given a sedative during the procedure, it can affect you for several hours. Do not drive or operate machinery until your health care provider says that it is safe. ? If you will be going home right after the procedure, plan to have a responsible adult: ? Take you home from the hospital or clinic. You will not be allowed to drive. ? Care for you for the time you are told. ? Follow instructions from your health care provider about what you may eat and drink. ? Return to your normal activities as told by your health care provider. Ask your health care provider what activities are safe for you. ? Take thml-puy-vvkmudd and prescription medicines only as told by your health care provider. Contact a health care provider if you: ? Have a sore throat that lasts longer than one day. ? Have trouble swallowing. ? Have a fever. Get help right away if you: ? Vomit blood or your vomit looks like coffee grounds. ? Have bloody, black, or tarry stools. ? Have a very bad sore throat or you cannot swallow. ? Have difficulty breathing or very bad pain in your chest or abdomen. These symptoms may be an emergency. Get help right away. Call 911. ? Do not wait to see if the symptoms will go away. ? Do not drive yourself to the hospital. Summary ? After the procedure, it is common to have a sore throat, mild stomach discomfort, bloating, and nausea. ? If you were given a sedative during the procedure, it can affect you for several hours. Do not drive until your health care provider says that it is safe. ? Follow instructions from your health care provider about what you may eat and drin (more content not included)... Normal [facility] Comment on above: Result Comment: Elec tronically Signed By: Lizzie GONZALEZ, Judi\.iveth\Date and Time Signed: 08/16/24 15:08 EDT Inpatient Patient Summaryon 08-16-2024 Inpatient Patient Summary Inpatient Patient Summary [place] [id number] [facility] Clinical Discharge Instructions PERSON INFORMATION Name: ANDREA SCHOFIELD PHYSICIANS Admitting Physician: Dorota Vann MD Attending Physician: Dorota Vann MD PCP: CARLA ALEJO Discharge Diagnosis: Comment: PATIENT EDUCATION INFORMATION Instructions: Medication Leaflets: Follow up: MEDICATION LIST Medications to Continue with No Changes Other Medications azelastine nasal (azelastine hydrochloride 137 mcg spray) 30 mL, 0 Refill(s), USE 1 SPRAY IN AFFECTED NOSTRIL(S) IN THE MORNING AND BEFORE BEDTIME FOR 14 DAYS., Responsible Provider: CARLA CISNEROS famotidine (famotidine 20 mg Tab) 1 Tablets By Mouth once a day (at bedtime). fluticasone nasal (fluticasone Nasal 0.05 mg/inh Montara) 1 Sprays Nasal Inhalation every day. Nasal, 0 Refill(s). ketorolac ophthalmic (ketorolac Opth 0.5% Allison) 10 mL, 0 Refill(s), PLACE 1 DROP INTO BOTH EYES IN THE MORNING,AT NOON, IN THE EVENING, & BEFORE BEDTIME FOR 10 DAYS.., Responsible Provider: ESTRELLA JUAREZ loratadine (loratadine 10 mg Tab) 1 Tablets By Mouth every day. omeprazole (omeprazole 40 mg Cap-DR) 1 Capsules By Mouth 2 times a day. Refills: 4. Comment: Normal [facility] Main OR PACU I Recordon 07-30 Main OR PACU I Record Main OR PACU I Record PACU Phase I Document Type FT Summary Primary Physician: Soo NGUYEN, Dorota Velázquez Finalized Date/Time: 08/16/24 15:53:27 Pt. Name: ANDREA SCHOFIELD Danitza Duran./Sex: 1985 Male Med Rec #: [id number] Physician: Dorota Vann MD Financial #: [id number] Pt. Type: O Room/Bed: / Admit/Disch: 08/16/24 13:08:35 - Institution: Case Times PACU I FT Pre-Care Text: Identifies barriers to communication and implements measures to provide psychological support Develops individualized plan of care, and ensures continuity of care Maintains patient's dignity and privacy, and maintains patient confidentiality Identifies and reports philosophical, cultural, and spiritual beliefs and values Identifies individual values and wishes concerning care Implements aseptic technique, and administers prescribed antibiotic therapy and immunizing agents as ordered Evaluates postoperative tissue perfusion Implements thermoregulation measures, and monitors body temperature Evaluates postoperative respiratory status Evaluates postoperative cardiac status Evaluates postoperative neurological status Assesses pain control, collaborated in initiating patient-controlled analgesia and implements alternative methods of pain control Verifies allergies, administers prescribed medications and solutions, evaluates response to medications Entry 1 In PACU I 08/16/24 14:40:00 Discharge from PACU 08/16/24 15:10:00 I Outcomes Met? Yes Last Modified By: Judi [place] RN 08/16/24 15:53:04 Post-Care Text: The patient demonstrates knowledge of the expected response to the operative or invasive procedure The patient's care is consistent with the individualized perioperative plan of care The patient's right to privacy is maintained The patient's value system, lifestyle, ethnicity, and culture are considered, respected, and incorporated into the perioperative plan of care The patient participates in decisions affecting his or her perioperative plan of care The patient is free from signs and symptoms of infection The patient has wound/tissue perfusion consistent with or improved from baseline levels established preoperatively The patient is at or returning to normothermia at the conclusion of the immediate postoperative period The patient's respiratory function is consistent with or improved from baseline levels established preoperatively The patient's cardiovascular status is consistent with or improved from baseline levels established preoperatively The patient's cardiovascular status is consistent with or improved from baseline levels established preoperatively The patient demonstrates and/or reports adequate pain control throughout the perioperative period The patient received appropriate medication(s), safely administered during the perioperative period Acuity Level PACU I FT Entry 1 Start Time 08/16/24 14:40:00 Stop Time 08/16/24 15:10:00 Acuity Level Acuity Level I Last Modified By: Judi Samuel RN 08/16/24 15:53:25 Finalized By: Judi Samuel RN Document Signatures Signed By: Judi Samuel RN 08/16/24 15:53 Normal [facility] Main OR Preoperative Recordo n 08-16-2024 Main OR Preoperative Record Main OR Preoperative Record Holding Area Document Type FT Summary Primary Physician: Dorota Vann MD Finalized Date/Time: 08/16/24 13:29:20 Pt. Name: ANDREA SCHOFIELD/Sex: 1985 Male Med Rec #: [id number] Physician: Dorota Vann MD Financial #: [id number] Pt. Type: O Room/Bed: / Admit/Disch: 08/16/24 13:08:35 - Institution: Case Times Holding FT Pre-Care Text: Verifies consent for planned procedure, identifies individual values and wishes concerning care, includes family members in perioperative teaching Secures patient's records' belongings, and valuables, maintains patient's dignity and privacy, and maintains patient confidentiality Entry 1 In Holding 08/16/24 13:15:00 Outcomes Met? Yes Last Modified By: Alvin Benson RN 08/16/24 13:28:36 Post-Care Text: The patient participates in decisions affecting his or her perioperative plan of care The patient's right to privacy is maintained Surgery Checklist FT Entry 1 Patient Birthday, ID Band Procedure History and Physical, Identification: Check, Patient Verification: Surgical Consent, With Participation Patient NPO after Midnight: Yes Results Reviewed n/a Comments: Personal Items: Jewelry Personal Items ring x1 Comment: Limitations: none Complaints of Pain: No Pain Comment: denies pain at this time Operative Site n/a Marking: Marked By: n/a Location: n/a Availability Equipment Verified: Does Patient Smoke No Patient states Yes Comment - Adult Yolanda postop adult Supervision supervision available Case Cancelled in No Holding Area see comments below for reason Last Modified By: Alvin Benson RN 08/16/24 13:29:19 Finalized By: Alvin Benson RN Document Signatures Signed By: Alvin Benson RN 08/16/24 13:29 Normal [facility] Outpatient Surgery Discharge Instructionon 08-16-2024 Outpatient Surgery Discharge Instruction Outpatient Surgery Discharge Instruction [place] [id number] Patient Discharge Instructions PERSON INFORMATION Name: ANDREA SCHOFIELD Date of : 1985 Current Date: 08/16/2024 14:40:54 PHYSICIANS Admitting Physician: Soo NGUYEN, Dorota Velázquez Discharge Diagnosis: ANDREA SCHOFIELD has been given the following list of follow-up instructions, prescriptions, and patient education materials: PATIENT FOLLOW-UP INFORMATION Diet: Regular Discharge Activity: Resume normal activities in 24 hours Discharge Restrictions: No driving for 24 hrs Call Your Doctor For: Persistent or heavy bleeding IF UNABLE TO CONTACT YOUR PHYSICIAN AND YOU FEEL IT IS AN EMERGENCY, GO TO THE NEAREST EMERGENCY ROOM OR CALL 911 I, ANDREA SCHOFIELD, have received the attached patient education materials/instructions and have verbalized understanding: May we do a follow up call? Yes No I was present when discharge instructions were given __ Patient Signature Date Clinican/Nurse Signature Date Follow up: Pharmacy Information: You may receive a survey from Karmen Mcgee asking you to rate your care experience. Your feedback is important and will help us understand what we do well and how we can improve the quality of care we provide to you, your loved ones and our community. It?s an honor to serve you. Thank you for choosing [facility] HERE ARE THE MEDICATION CHANGES THAT OCCURRED DURING YOUR HOSPITAL STAY Medications to Continue with No Changes Other Medications azelastine nasal (azelastine hydrochloride 137 mcg spray) 30 mL, 0 Refill(s), USE 1 SPRAY IN AFFECTED NOSTRIL(S) IN THE MORNING AND BEFORE BEDTIME FOR 14 DAYS., Responsible Provider: CARLA CISNEROS famotidine (famotidine 20 mg Tab) 1 Tablets By Mouth once a day (at bedtime). fluticasone nasal (fluticasone Nasal 0.05 mg/inh Montara) 1 Sprays Nasal Inhalation every day. Nasal, 0 Refill(s). ketorolac ophthalmic (ketorolac Opth 0.5% Allison) 10 mL, 0 Refill(s), PLACE 1 DROP INTO BOTH EYES IN THE MORNING,AT NOON, IN THE EVENING, & BEFORE BEDTIME FOR 10 DAYS.., Responsible Provider: ESTRELLA JUAREZ loratadine (loratadine 10 mg Tab) 1 Tablets By Mouth every day. omeprazole (omeprazole 40 mg Cap-DR) 1 Capsules By Mouth 2 times a day. Refills: 4. PATIENT EDUCATION INFORMATION Instructions: Medication Leaflets: Normal [facility] OVA + PARASITE EXAMon 2023 OVA + PARASITE EXAM Final report . [facility] Comment on above: These results were o btained using wet preparation(s) and trichrome stained smear. This test does not include testing for Cryptosporidium parvum, Cyclospora, or Microsporidia. RESULT 1 Comment . [facility] Comment on above: No ova, cysts, or pa rasites seen. One negative specimen does not rule out the possibility of a parasitic infection. Performed at: [place] [id number] [employer]: Esau Whitley PhD, Phone: [phone] SPECIMEN #3 [facility]OL [facility] No Panel Informationon 08-11 OVA + PARASITE EXAM Final report . [facility] Comment on above: These results were o btained using wet preparation(s) and trichrome stained smear. This test does not include testing for Cryptosporidium parvum, Cyclospora, or Microsporidia. RESULT 1 Comment . [facility] Comment on above: No ova, cysts, or pa rasites seen. One negative specimen does not rule out the possibility of a parasitic infection. Performed at: - [facility] [address] [place], [place] [id number] [employer]: Esau Whitley PhD, Phone: [phone] [facility] OVA + PARASITE EXAMon 2023 STOOL [facility] Ambulatory Visit Summaryon 0 08-07-2024 Ambulatory Visit Summary Ambulatory Visit Summary ANDREA SCHOFIELD :1985 Visit Date:08/07/2024 Ambulatory Visit Instructions Your Diagnosis GERD (gastroesophageal reflux disease) Globus sensation Your Care Team Attending Physician - Soo NGUYEN, Dorota Velázquez Primary Care Physician - CARLA ALEJO This Is Your Medications List omeprazole (omeprazole 40 mg Cap-DR) Contact prescribing physician if questions or concerns azelastine nasal (azelastine hydrochloride 137 mcg spray) famotidine (famotidine 20 mg Tab) fluticasone nasal (fluticasone Nasal 0.05 mg/inh Montara) ketorolac ophthalmic (ketorolac Opth 0.5% Allison) loratadine (loratadine 10 mg Tab) Procedures Performed Bilateral vasectomy (05/01/2019), Eustachian tube, Tonsillectomy. Discharge Vitals Heart Rate (Peripheral) 69 Blood Pressure 125/86 Height 190.5 cm Height 75 in Weight 111.6 kg Weight 245.52 lb BMI 30.75 Medications What How Much When Instructions Changed omeprazole (omeprazole 40 mg Cap-DR) 1 Capsules By Mouth 2 times a day Pickup at [facility]/pharmacy #[id number] Unchanged azelastine nasal (azelastine hydrochloride 137 mcg spray) 30 mL, 0 Refill(s), USE 1 SPRAY IN AFFECTED NOSTRIL(S) IN THE MORNING AND BEFORE BEDTIME FOR 14 DAYS Contact prescribing physician if questions or concerns Unchanged famotidine (famotidine 20 mg Tab) Contact prescribing physician if questions or concerns Unchanged fluticasone nasal (fluticasone Nasal 0.05 mg/ inh Montara) Nasal, 0 Refill(s) Contact prescribing physician if questions or concerns Unchanged ketorolac ophthalmic (ketorolac Opth 0.5% Allison) 10 mL, 0 Refill(s), PLACE 1 DROP INTO BOTH EYES IN THE MORNING,AT NOON, IN THE EVENING, & BEFORE BEDTIME FOR 10 DAYS. Contact prescribing physician if questions or concerns Unchanged loratadine (loratadine 10 mg Tab) Contact prescribing physician if questions or concerns Pharmacy Information [facility]/pharmacy #[id number]: [address], [place] [id number] [phone] Allergies No Known Medication Allergies Problems Ongoing - Any problem that you are currently receiving treatment for. Allergic rhinitis Atopic dermatitis Bilateral tinnitus Conductive hearing loss of left ear with unrestricted hearing of right ear Encounter for sterilization GERD (gastroesophageal reflux disease) Globus sensation Patient Survey You may receive a survey via text or e-mail asking about your office visit. Please share your experience with us by completing your survey. We appreciate your feedback and thank you for choosing us for your care. David Casanova [facility] Gastroenterology Office/Clin ic Noteon 08-07-2024 Gastroenterology Office/Clinic Note Gastroenterology Office/Clinic Note Chief Complaint Globus sensation and GERD HPI Staff Patient is a(n) 39 year old male who was referred by Mariel for globus sensation and GERD. Denies blood thinners/GLP-1 agonists. Dysphagia: When did it start: years ago, but recently worse. Solids or liquids: solids Frequency ( every meal? Or less often): multiple times in past but once since starting Omeprazole Previous food impaction: yes - had it happen once around February this year and had to drink a lot of water to get food down Previous EGD? no Review of Systems PHQ Score Initial Depression Screen Score: 0 SCORE Physical Exam Vitals & Measurements HR: 69(Peripheral) BP: 125/86 HT: 75 in HT: 190.5 cm WT: 111.6 kg WT: 245.52 lb BMI: 30.75 Assessment/Plan 1. GERD (gastroesophageal reflux disease) (K21.9: Gastro-esophageal reflux disease without esophagitis) Describing heartburn, odynophagia and occasional dysphagia to solids in the past 5 years Omeprazole helps some We discussed differential include EOE, Schatzki ring, peptic stricture... Will proceed with EGD with random biopsy and possible dilation based on findings 2. Globus sensation (R09.A2: Foreign body sensation, throat) Increase omeprazole Will discuss further therapies if needed or dilation if needed Follow-up No qualifying data available Problem List/Past Medical History Ongoing Allergic rhinitis Atopic dermatitis Bilateral tinnitus Conductive hearing loss of left ear with unrestricted hearing of right ear Encounter for sterilization GERD (gastroesophageal reflux disease) Globus sensation Historical No qualifying data Procedure/Surgical History Bilateral vasectomy (05/01/2019), Eustachian tube, Tonsillectomy. Medications azelastine hydrochloride 137 mcg spray famotidine 20 mg Tab fluticasone Nasal 0.05 mg/inh Montara ketorolac Opth 0.5% Allison loratadine 10 mg Tab omeprazole 40 mg Cap-DR Allergies No Known Medication Allergies Social History Alcohol - Denies Alcohol Use, 06/08/2019 Tobacco - Denies Tobacco Use, 06/08/2019 Never (less than 100 in lifetime) Tobacco Use:. Never Smokeless Tobacco Use:., 08/07/2024 Family History Patient was adopted Normal [facility] Comment on above: Result Comment: Elec tronically Signed By: Soo NGUYEN, Dorota Velázquez\.br\Date and Time Signed: 08/07/24 10:00 EDT CBC AUTO DIFFon 12-04-2022 BASO # 0.1 103/ul Normal 0.0-0.1 [facility] Comment on above: Performed By: #### C BC #### [facility] [address] [address] [address] Letty Grier Basophils/100 WBC (Bld) 0.6 % Normal 0.2-2.0 [facility] Comment on above: Performed By: #### C BC #### [facility] [address] [address] [address] Letty Grier EO # 0.1 103/ul Normal 0.0-0.7 [facility] Comment on above: Performed By: #### C BC #### [facility] [address] [address] [address] Letty Grier Eosinophils/100 WBC (Bld) 1.0 % Normal 0.9-7.0 [facility] Comment on above: Performed By: #### C BC #### [facility] [address] [address] [address] Letty Grier Erythrocyte distribution width (RBC) [Ratio] 12.5 % Normal 11.0-15.0 [facility] Comment on above: Performed By: #### C BC #### [facility] [address] [place] [address] Dr. Letty Grier Hematocrit (Bld) [Volume fraction] 44.5 % Normal 42.0-54.0 [facility] Comment on above: Performed By: #### C BC #### [facility] [address] [place] [address] Dr. Letty Grier Hemoglobin (Bld) [Mass/Vol] 15.9 g/dL Normal 14.0-18.0 [facility] Comment on above: Performed By: #### C BC #### [facility] [address] [place] [address] Dr. Letty Grier IG # 0.10 10e3/ul Critically high 0.00-0.03 [facility] Comment on above: Performed By: #### C BC #### [facility] [address] [place] [address] Dr. Letty Grier IG % 0.8 % Critically high 0.0-0.5 [facility] Comment on above: Performed By: #### C BC #### [facility] [address] [place] [address] Dr. Letty Grier LYMPH # 2.0 103/ul Normal 1.2-3.8 [facility] Comment on above: Performed By: #### C BC #### [facility] [address] [place] [address] Dr. Letty Grier Lymphocytes/100 WBC (Bld) 16.3 % Critically low 20.5-60.0 [facility] Comment on above: Performed By: #### C BC #### [facility] [address] [place] [address] Dr. Letty Grier MANUAL DIFF REQ NO Normal [facility] Comment on above: Performed By: #### C BC #### [facility] [address] [place] [address] Dr. Letty Grier MCH (RBC) [Entitic mass] 29.3 pg Normal 25.9-34.0 [facility] Comment on above: Performed By: #### C BC #### [facility] [address] [place] [address] Dr. Letty Grier MCHC (RBC) [Mass/Vol] 35.7 g/dL Critically high 29.9-35.2 [facility] Comment on above: Performed By: #### C BC #### [facility] [address] [place] [address] Dr. Letty Grier MCV (RBC) [Entitic vol] 82.1 fL Normal 80.0-94.0 [facility] Comment on above: Performed By: #### C BC #### [facility] [address] [place] [address] Dr. Letty Grier MONO # 0.8 103/ul Normal 0.3-0.8 [facility] Comment on above: Performed By: #### C BC #### [facility] [address] [place] [address] Dr. Letty Grier Monocytes/100 WBC (Bld) 6.7 % Normal 1.7-12.0 [facility] Comment on above: Performed By: #### C BC #### [facility] [address] [place] [address] Dr. Letty Grier NEUT # 8.9 103/ul Critically high 1.4-6.5 [facility] Comment on above: Performed By: #### C BC #### [facility] [address] [place] [address] Dr. Letty Grier Neutrophils/100 WBC (Bld) 74.6 % Normal 43.0-75.0 [facility] Comment on above: Performed By: #### C BC #### [facility] [address] [address] [address] Letty Grier Platelet mean volume (Bld) [Entitic vol] 9.6 fL Normal 9.5-13.5 [facility] Comment on above: Performed By: #### C BC #### [facility] [address] [place] [address] Dr. Letty Grier PLT 319 103/ul Normal 150-450 [facility] Comment on above: Performed By: #### C BC #### [facility] [address] [address] [address] Letty Grier RBC 5.42 106/ul Normal 4.70-6.10 [facility] Comment on above: Performed By: #### C BC #### [facility] [address] [place] [address] Dr. Letty Grier WBC 11.9 103/ul Critically high 4.0-11.0 [facility] Comment on above: Performed By: #### C BC #### [facility] [address] [place] [address] Dr. Letty Grier CRPon 12-04-2022 CRP 1.0 mg/dL Normal <=1.0 [facility] Comment on above: Performed By: #### U QUINTON, CRP #### [facility] [address] [place] [address] Dr. Letty Grier [facility] SED RATE 10 mm/hr Normal <=15 [facility] Comment on above: Performed By: #### S EDR #### [facility] [address] [place] [address] Dr. Letty Grier URIC ACID SERUMon 12-04-2022 Urate [Mass/Vol] 6.6 mg/dL Normal 3.5-7.2 [facility] Comment on above: Performed By: #### U QUINTON, CRP #### [facility] [address] [place] [address] Dr. Letty Grier MRI Knee w/o Lefton [...] by Cristino Timmons on 10/01/2022 1607 Normal [facility] Specialist Vital Signs Date Time Vital Sign Value Performing Clinician Facility 09-12-2025 16:30-0400 Body height 190.5 cm Reddy Brown DPM Work Phone: [facility] 09-12-2025 16:30-0400 Body mass index (BMI) [Ratio] 30.62 kg/m2 Reddy Brown DPM Work Phone: [facility] 09-12-2025 16:30-0400 Body weight 111.13 kg Reddy Brown DPM Work Phone: [facility] 09-12-2025 16:30-0400 Respiratory rate 18 /min Reddy Brown DPM Work Phone: [facility] 09-06-2025 09:04-0400 Body height 190.5 cm Reddy Brown DPM Work Phone: [facility] 09-06-2025 09:04-0400 Body mass index (BMI) [Ratio] 30.62 kg/m2 Reddy Brown DPM Work Phone: [facility] 09-06-2025 09:04-0400 Body weight 111.13 kg Reddy Brown DPM Work Phone: [facility] 09-06-2025 09:04-0400 Respiratory rate 18 /min Reddy Brown DPM Work Phone: [facility] 08-16-2025 08:32-0400 Body height 190.5 cm Reddy Brown DPM Work Phone: [facility] 08-16-2025 08:32-0400 Body mass index (BMI) [Ratio] 30.62 kg/m2 Reddy Brown DPM Work Phone: [facility] 08-16-2025 08:32-0400 Body weight 111.13 kg Reddy Brown DPM Work Phone: [facility] 08-16-2025 08:32-0400 Respiratory rate 16 /min Reddy Brown DPM Work Phone: [facility] 07-26-2025 09:19-0400 Body height 190.5 cm Reddy Brown DPM Work Phone: [facility] 07-26-2025 09:19-0400 Body mass index (BMI) [Ratio] 30.62 kg/m2 Reddy Brown DPM Work Phone: [facility] 07-26-2025 09:19-0400 Body weight 111.13 kg Reddy Brown DPM Work Phone: [facility] 07-26-2025 09:19-0400 Respiratory rate 16 /min Reddy Brown DPM Work Phone: [facility] 06-21-2025 08:38-0400 Body height 190.5 cm Reddy Brown DPM Work Phone: [facility] 06-21-2025 08:38-0400 Body mass index (BMI) [Ratio] 30.62 kg/m2 Reddy Brown DPM Work Phone: [facility] 06-21-2025 08:38-0400 Body weight 111.13 kg Reddy Brown DPM Work Phone: [facility] 06-21-2025 08:38-0400 Respiratory rate 18 /min Reddy Brown DPM Work Phone: [facility] 06-05-2025 16:10-0400 Body height 190.5 cm Reddy Singh DPM Work Phone: [facility] 06-05-2025 16:10-0400 Body mass index (BMI) [Ratio] 30.62 kg/m2 Reddy Singh DPM Work Phone: [facility] 06-05-2025 16:10-0400 Body weight 111.13 kg Reddy Singh DPM Work Phone: [facility] 06-05-2025 16:10-0400 Respiratory rate 18 /min Reddy Singh DPM Work Phone: [facility] 05-22-2025 11:09-0400 Body height 190.5 cm Zaida Wyatt [employer] Work Phone: [facility] 05-22-2025 11:09-0400 Body mass index (BMI) [Ratio] 30.5 kg/m2 Zaida Wyatt [employer] Work Phone: [facility] 05-22-2025 11:09-0400 Body weight 110.68 kg Zaida Wyatt [employer] Work Phone: [facility] 05-22-2025 11:09-0400 Diastolic blood pressure 82 mm[Hg] Zaida Wyatt [employer] Work Phone: [facility] 05-22-2025 11:09-0400 Heart rate 57 /min Zaida Wyatt [employer] Work Phone: [facility] 05-22-2025 11:09-0400 Respiratory rate 17 /min Zaida Ranjana [employer] Work Phone: [facility] 05-22-2025 11:09-0400 SaO2% (BldA) [Mass fraction] 98 % Zaida Wyatt [employer] Work Phone: [facility] 05-22-2025 11:09-0400 Systolic blood pressure 120 mm[Hg] Zaida Wyatt [employer] Work Phone: [facility] 04-26-2025 13:35-0400 Body height 190.5 cm Carla Hemmer PA Work Phone: [facility] 04-26-2025 13:35-0400 Body mass index (BMI) [Ratio] 30.37 kg/m2 Carla Hemmer PA Work Phone: [facility] 04-26-2025 13:35-0400 Body temperature 98.6 [degF] Carla Hemmer PA Work Phone: [facility] 04-26-2025 13:35-0400 Body weight 110.22 kg Carla Hemmer PA Work Phone: [facility] 04-26-2025 13:35-0400 Diastolic blood pressure 68 mm[Hg] Carla Hemmer PA Work Phone: [facility] 04-26-2025 13:35-0400 Heart rate 79 /min Carla Hemmer PA Work Phone: [facility] 04-26-2025 13:35-0400 Respiratory rate 16 /min Carla Hemmer PA Work Phone: [facility] 04-26-2025 13:35-0400 SaO2% (BldA) [Mass fraction] 95 % Carla Hemmer PA Work Phone: [facility] 04-26-2025 13:35-0400 Systolic blood pressure 112 mm[Hg] Carla Hemmer PA Work Phone: [facility] 02-01-2025 11:38-0500 Body height 190.5 cm Carla Hemmer PA Work Phone: [facility] 02-01-2025 11:38-0500 Body mass index (BMI) [Ratio] 30.07 kg/m2 Carla Hemmer PA Work Phone: [facility] 02-01-2025 11:38-0500 Body temperature 98.8 [degF] Carla Hemmer PA Work Phone: [facility] 02-01-2025 11:38-0500 Body weight 109.14 kg Carla Hemmer PA Work Phone: [facility] 02-01-2025 11:38-0500 Diastolic blood pressure 82 mm[Hg] Carla Hemmer PA Work Phone: [facility] 02-01-2025 11:38-0500 Heart rate 71 /min Carla Hemmer PA Work Phone: [facility] 02-01-2025 11:38-0500 Respiratory rate 16 /min Carla Hemmer PA Work Phone: [facility] 02-01-2025 11:38-0500 SaO2% (BldA) [Mass fraction] 98 % Carla Hemmer PA Work Phone: [facility] 02-01-2025 11:38-0500 Systolic blood pressure 106 mm[Hg] Carla Hemmer PA Work Phone: [facility] 09-15-2024 08:46-0400 Blood Pressure Location Raya Sarmini [facility] 09-15-2024 08:46-0400 Diastolic blood pressure 72 mm[Hg] Raya Sarmini [facility] 09-15-2024 08:46-0400 Heart rate 55 /min Raya Sarmini [facility] 09-15-2024 08:46-0400 Systolic blood pressure 129 mm[Hg] Raya Sarmini [facility] 08-16-2024 15:05-0400 Diastolic blood pressure 76 mm[Hg] Raya Sarmini [facility] 08-16-2024 15:05-0400 Heart rate 54 /min Raya Sarmini [facility] 08-16-2024 15:05-0400 Mean blood pressure 96 mm[Hg] Raya Sarmini [facility] 08-16-2024 15:05-0400 Respiratory rate 14 /min Raya Sarmini [facility] 08-16-2024 15:05-0400 SaO2% (BldA) [Mass fraction] 95 % Raya Sarmini [facility] 08-16-2024 15:05-0400 Systolic blood pressure 137 mm[Hg] Raya Sarmini [facility] 08-16-2024 14:55-0400 Diastolic blood pressure 78 mm[Hg] Raya Sarmini [facility] 08-16-2024 14:55-0400 Heart rate 56 /min Raya Sarmini [facility] 08-16-2024 14:55-0400 Mean blood pressure 92 mm[Hg] Raya Sarmini [facility] 08-16-2024 14:55-0400 Respiratory rate 10 /min Raya Sarmini [facility] 08-16-2024 14:55-0400 SaO2% (BldA) [Mass fraction] 94 % Raya Sarmini [facility] 08-16-2024 14:55-0400 Systolic blood pressure 119 mm[Hg] Raya Sarmini [facility] 08-16-2024 14:50-0400 Diastolic blood pressure 79 mm[Hg] Raya Sarmini [facility] 08-16-2024 14:50-0400 Heart rate 62 /min Arya Sarmini [facility] 08-16-2024 14:50-0400 Mean blood pressure 93 mm[Hg] Raya Sarmini [facility] 08-16-2024 14:50-0400 Respiratory rate 11 /min Raya Sarmini [facility] 08-16-2024 14:50-0400 SaO2% (BldA) [Mass fraction] 94 % Raya Sarmini [facility] 08-16-2024 14:50-0400 Systolic blood pressure 121 mm[Hg] Raya Sarmini [facility] 08-16-2024 14:40-0400 Blood Pressure Location Raya Sarmini [facility] 08-16-2024 14:40-0400 Body temperature 97.7 [degF] Raya Sarmini [facility] 08-16-2024 14:30-0400 Respiratory rate 14 /min Raya Sarmini [facility] 08-16-2024 14:25-0400 Respiratory rate 14 /min Raya Sarmini [facility] 08-16-2024 13:30-0400 Blood Pressure Location Raya Sarmini [facility] 08-16-2024 13:30-0400 Body temperature 98.42 [degF] Raya Sarmini [facility] 08-07-2024 09:34-0400 Blood Pressure Location Raya Sarmini [facility] 08-07-2024 09:34-0400 Diastolic blood pressure 86 mm[Hg] Raya Sarmini [facility] 08-07-2024 09:34-0400 Heart rate 69 /min Dorota Fishmini [facility] 08-07-2024 09:34-0400 Systolic blood pressure 125 mm[Hg] Dorota Fishmini [facility] 07-28-2024 11:13-0400 Body height 190.5 cm Carla Hemmer PA Work Phone: [facility] 07-28-2024 11:13-0400 Body mass index (BMI) [Ratio] 31.15 kg/m2 Carla Hemmer PA Work Phone: [facility] 07-28-2024 11:13-0400 Body weight 113.04 kg Carla Hemmer PA Work Phone: [facility] 07-28-2024 11:13-0400 Diastolic blood pressure 84 mm[Hg] Carla Hemmer PA Work Phone: [facility] 07-28-2024 11:13-0400 Heart rate 64 /min Carla Hemmer PA Work Phone: [facility] 07-28-2024 11:13-0400 Respiratory rate 16 /min Carla Hemmer PA Work Phone: [facility] 07-28-2024 11:13-0400 SaO2% (BldA) [Mass fraction] 97 % Carla Hemmer PA Work Phone: [facility] 07-28-2024 11:13-0400 Systolic blood pressure 128 mm[Hg] Carla Hemmer PA Work Phone: [facility] 07-21-2023 10:00-0400 Body height 190.5 cm Mallory Houston Other [employer] Other 07-21-2023 10:00-0400 Body mass index (BMI) [Ratio] 30.52 kg/m2 Mallory Houston Other [employer] Other 07-21-2023 10:00-0400 Body temperature 98.7 [degF] Mallory Houston Other [employer] Other 07-21-2023 10:00-0400 Body weight 110.77 kg Mallory Houston Other [employer] Other 07-21-2023 10:00-0400 Diastolic blood pressure 83 mm[Hg] Mallory Houston Other [employer] Other 07-21-2023 10:00-0400 Respiratory rate 18 /min Mallory Houston Other [employer] Other 07-21-2023 10:00-0400 SaO2% (BldA) [Mass fraction] 97 % Mallory Houston Other [employer] Other 07-21-2023 10:00-0400 Systolic blood pressure 110 mm[Hg] Mallory Houston Other [employer] Other Encounters Encounter Date Encounter Type Care Provider Facility Start: 09-12-2025 End: 09-12-2025 Office outpatient visit 15 minutes Reddy Singh DPM Work Phone: [facility] Comment on above: Capsulitis of metata rsophalangeal (MTP) joint of left foot (Primary Dx); Hallux rigidus of left foot; Gout of left foot, unspecified cause, unspecified chronicity; Plantar fasciitis Start: 09-12-2025 End: 09-12-2025 Bamboo RockeTalkheet Reddy Singh DPM Work Phone: [facility] Start: 09-12-2025 End: 09-12-2025 BamThinkUpo Rocke[employer]heet Reddy Singh DPM Work Phone: [facility] Start: 09-06-2025 End: 09-06-2025 Office outpatient visit 15 minutes Reddy Singh DPM Work Phone: [facility] Comment on above: Capsulitis of metata rsophalangeal (MTP) joint of left foot (Primary Dx); Plantar fasciitis; Gout of left foot, unspecified cause, unspecified chronicity; Hallux rigidus of left foot Start: 09-06-2025 End: 09-06-2025 ambulatory REDDY SINGH Not Available Start: 09-05-2025 End: 09-05-2025 Bamboo flowsheet Jr. Beto Knight DO Work Phone: [facility] Start: 09-05-2025 End: 09-05-2025 Bamboo flowsheet Jr. Beto Rodrigues Steplaureano DO Work Phone: [facility] Start: 09-05-2025 End: 09-05-2025 Office outpatient visit 15 minutes Jr. Beto Knight DO Work Phone: [facility] Comment on above: Flexor carpi ulnaris tendinitis (Primary Dx) Start: 09-05-2025 End: 09-05-2025 ambulatory BETO NEGRETE Not Available Start: 09-03-2025 End: 09-03-2025 Telephone encounter Reddy Singh DPM Work Phone: [facility] Start: 09-03-2025 End: 09-03-2025 ambulatory SERGIO KASPER Not Available Start: 08-27-2025 End: 08-27-2025 Bamboo flowsheet Sergio Kasper PA Work Phone: [facility] Start: 08-27-2025 End: 08-27-2025 Bamboo flowsheet Sergio LEVI Work Phone: [facility] Start: 08-27-2025 End: 08-27-2025 Office outpatient visit 25 minutes Sergio LEVI Work Phone: [facility] Comment on above: Pain in right forear m (Primary Dx); Arm weakness; Numbness; Arm pain, right Start: 08-27-2025 End: 08-27-2025 ambulatory SERGIO KASPER Not Available Start: 08-16-2025 End: 08-16-2025 Bamboo flowsheet Reddy Singh DPM Work Phone: [facility] Start: 08-16-2025 End: 08-16-2025 Bamboo flowsheet Reddy John Brown DPM Work Phone: [facility] Start: 08-16-2025 End: 08-16-2025 Office outpatient visit 15 minutes Reddy John Singh DPM Work Phone: [facility] Comment on above: Capsulitis of metata rsophalangeal (MTP) joint of left foot (Primary Dx); Gout of left foot, unspecified cause, unspecified chronicity; Plantar fasciitis Start: 08-16-2025 End: 08-16-2025 ambulatory REDDY SINGH Not Available Start: 07-26-2025 End: 07-26-2025 Bamboo flowsheet Reddy John Brown DPM Work Phone: [facility] Start: 07-26-2025 End: 07-26-2025 Bamboo flowsheet Reddy John Brown DPM Work Phone: [facility] Start: 07-26-2025 End: 07-26-2025 Office outpatient visit 15 minutes Reddy John Singh DPM Work Phone: [facility] Comment on above: Capsulitis of metata rsophalangeal (MTP) joint of left foot (Primary Dx); Gout of left foot, unspecified cause, unspecified chronicity; Plantar fasciitis Start: 07-26-2025 End: 07-26-2025 ambulatory REDDY SINGH Not Available Start: 06-21-2025 End: 06-21-2025 Bamboo flowsheet Reddy John Brown DPM Work Phone: [facility] Start: 06-21-2025 End: 06-21-2025 Bamboo flowsheet Reddy John Errol DPM Work Phone: [facility] Start: 06-21-2025 End: 06-21-2025 Office outpatient visit 15 minutes Reddy Singh DPM Work Phone: [facility] Comment on above: Capsulitis of metata rsophalangeal (MTP) joint of left foot (Primary Dx); Gout of left foot, unspecified cause, unspecified chronicity; Plantar fasciitis Start: 06-21-2025 End: 06-21-2025 ambulatory REDDY SINGH Not Available Start: 06-05-2025 End: 06-05-2025 Office outpatient new 30 minutes Reddy Singh DPM Work Phone: [facility] Comment on above: Gout of left foot, u nspecified cause, unspecified chronicity (Primary Dx); Left foot pain; Capsulitis of metatarsophalangeal (MTP) joint of left foot; Plantar fasciitis Start: 06-05-2025 End: 06-05-2025 ambulatory REDDY SINGH Not Available Start: 06-05-2025 End: 06-05-2025 Bamboo flowsheet Reddy Singh DPM Work Phone: [facility] Start: 06-05-2025 End: 06-05-2025 Bamboo flowsheet Reddy Singh DPM Work Phone: [facility] Start: 05-24-2025 End: 05-24-2025 Telephone encounter Carla Cisneros PA Work Phone: [facility] Start: 05-22-2025 End: 05-22-2025 Bamboo flowsheet Zaida Wyatt [employer] Work Phone: [facility] Start: 05-22-2025 End: 05-22-2025 Bamboo flowsheet Zaida Wyatt [employer] Work Phone: [facility] Start: 05-22-2025 End: 05-22-2025 Clinisync Result Encounter Zaida Wyatt [employer] Work Phone: [facility] Unsolicited Start: 05-22-2025 End: 05-22-2025 ambulatory ZAIDA WYATT Not Available Start: 05-22-2025 End: 05-22-2025 Office outpatient visit 25 minutes Zaida Wyatt [employer] Work Phone: [facility] Comment on above: Acute gout, unspecif ied cause, unspecified site (Primary Dx); Left foot pain Start: 04-26-2025 End: 04-26-2025 Bamboo flowsheet Carla Cisneros PA Work Phone: [facility] Start: 04-26-2025 End: 04-26-2025 Bamboo flowsheet Crala Cisneros PA Work Phone: [facility] Start: 04-26-2025 End: 04-26-2025 Office outpatient visit 15 minutes Carla Cisneros PA Work Phone: [facility] Comment on above: Acute left otitis me rika (Primary Dx); Acute non-recurrent pansinusitis; Gastro-esophageal reflux disease without esophagitis Start: 04-26-2025 End: 04-26-2025 ambulatory CARLA CISNEROS Not Available Start: 03-01-2025 End: 03-01-2025 Telephone encounter Carla Cisneros PA Work Phone: [facility] Start: 03-01-2025 End: 03-01-2025 ambulatory CARLA CISNEROS Not Available Start: 02-01-2025 End: 02-01-2025 Bamboo flowsheet Carla Cisneros PA Work Phone: [facility] Start: 02-01-2025 End: 02-01-2025 Bamboo flowsheet Carla Cisneros PA Work Phone: [facility] Start: 02-01-2025 End: 02-01-2025 Office outpatient visit 25 minutes Carla Cisneros PA Work Phone: [facility] Comment on above: Tendinitis of right forearm (Primary Dx); Acute non-recurrent pansinusitis Start: 02-01-2025 End: 02-01-2025 ambulatory CARLA CISNEROS Not Available Start: 01-26-2025 End: 01-26-2025 Bamboo flowsheet Bryant Lopez Felter MEDICAL BILLING MANAGER-FARM EQUIPMENT ENGINEER Work Phone: [facility] Start: 01-26-2025 End: 01-26-2025 Bamboo flowsheet Bryant A Felter MEDICAL BILLING MANAGER-FARM EQUIPMENT ENGINEER Work Phone: [facility] Start: 01-26-2025 End: 01-26-2025 Office outpatient visit 15 minutes Bryant Lopez Felter MEDICAL BILLING MANAGER-FARM EQUIPMENT ENGINEER Work Phone: [facility] Comment on above: EIC (epidermal inclu hayley cyst) (Primary Dx); Melanocytic nevus of trunk; Seborrheic keratosis; Capillary angioma Start: 01-26-2025 End: 01-26-2025 ambulatory BRYANT MCLAUGHLIN Not Available Start: 09-15-2024 End: 09-15-2024 ambulatory Raya Talal Sarmini Facility:[facility] Start: 09-15-2024 End: 09-15-2024 Patient encounter procedure Raya Talal Sarmini [facility] Start: 08-16-2024 End: 08-16-2024 ambulatory CARLA CISNEROS Facility[facility] Start: 08-16-2024 End: 08-16-2024 Patient encounter procedure Raya Talal Sarmini [facility] Start: 08-07-2024 End: 08-07-2024 ambulatory CARLA HEMMER Facility:[facility] Start: 08-07-2024 End: 08-07-2024 Patient encounter procedure Raya Talal Sarmini [facility] Start: 08-05-2024 End: 08-14-2024 Clinisync Result Encounter Carla Price Mariel PA Work Phone: [facility] Unsolicited Start: 08-05-2024 End: 08-14-2024 Clinisync Result Encounter Carla Price Hemmer PA Work Phone: [facility] Unsolicited Start: 08-04-2024 End: 08-11-2024 Clinisync Result Encounter Carla Baptistemer PA Work Phone: [facility] Unsolicited Start: 08-04-2024 End: 08-11-2024 Clinisync Result Encounter Carla Price Emilemer PA Work Phone: [facility] Unsolicited Start: 08-03-2024 End: 08-11-2024 Clinisync Result Encounter Carla Price Hemmer PA Work Phone: [facility] Unsolicited Start: 08-03-2024 End: 08-11-2024 Clinisync Result Encounter Carla Price Emilemer PA Work Phone: [facility] Unsolicited Start: 07-28-2024 End: 07-28-2024 Bamboo flowsheet Carlapiper Baptistemer PA Work Phone: [facility] Start: 07-28-2024 End: 07-28-2024 Bamboo flowsheet Carla M Hemmer PA Work Phone: [facility] Start: 07-28-2024 End: 07-28-2024 Office outpatient visit 25 minutes Carla Cisneros PA Work Phone: [facility] Comment on above: Globus sensation (Pr imary Dx); Gastroesophageal reflux disease without esophagitis; Allergic cough; Tendinitis of right forearm; Alternating constipation and diarrhea; Eye irritation Start: 07-19-2024 ambulatory CARLA CISNEROS Facility:[facility] Start: 07-21-2023 End: 07-21-2023 ambulatory Mallory Houston Other [employer] Other Start: 07-21-2023 Office outpatient vi sit 15 minutes Mallory Houston [facility] Start: 12-04-2022 End: 12-05-[address] SERGIO KASPER Facility:[facility] Procedures Date Procedure Procedure Detail Performing Clinician Start: 09-06-2025 Radex foot complete minimum 3 views Dennis Singh DPM Work Phone: Start: 05-22-2025 XR FOOT LT MIN 3V Zaida Wyatt [employer] Work Phone: Start: 05-22-2025 ALL URIC ACID Zaida Wyatt [employer] Work Phone: Start: 08-16-2024 Esophagogastroduodenoscopy Dorota Ontiveros inlilian Start: 08-05-2024 OVA + PARASITE EXAM Carla Price Hempieter PA Work Phone: Start: 08-04-2024 OVA + PARASITE EXAM Carla Price Hemmer PA Work Phone: Start: 08-03-2024 OVA + PARASITE EXAM Carla M Hemmer PA Work Phone: Start: 05-01-2019 Bilateral vasectomy Dorota Vann Eustachian canal str ucture (body structure) Dorota Vann Tonsillectomy Dorota Polanco ni Plan of Treatment Date Care Activity Detail Author Start: 01-29-2026 End: 01-29-2026 Patient encounter procedure [facility] Start: 10-17-2025 End: 10-17-2025 Patient encounter procedure 10/17/2025 8:30 AM EST Office Visit [facility] [address] [place] [phone] Jr. Beto Knight, DO [address] [place] [address] [facility] Start: 09-19-2025 End: 09-19-2025 Patient encounter procedure 09/19/2025 8:00 AM EDT Office Visit [facility] [address] [place] [phone] Jr. Beto Knight, [address] [place] [address] [facility] Start: 09-12-2025 End: 09-12-2025 Patient encounter procedure 09/12/2025 4:10 PM EDT Office Visit [facility] [address] [place] [phone] Reddy Singh DPM [address] [facility] [address] [place] [address] [facility] Start: 09-12-2025 End: 09-12-2026 Urate [Mass/volume] in Serum or Plasma Uric acid Lab Routine Gout of left foot, unspecified cause, unspecified chronicity Expected: 09/12/2025 (Approximate), Expires: 09/12/2026 [facility] Work Phone: Comment on above: Expected: 09/12/2025 (Approximate), Expi res: 09/12/2026 Start: 09-06-2025 End: 09-06-2025 Patient encounter procedure 09/06/2025 9:00 AM EDT Office Visit [facility] [address] [place] [phone] Reddy Singh DPM [address] [facility] [address] [place] [address] [facility] Start: 09-05-2025 End: 09-05-2025 Patient encounter procedure [facility] Comment on above: Arrived Start: 08-27-2025 End: 08-27-2026 EMG AND NERVE CONDUCTION STUDY EMG AND NERVE CONDUCTION STUDY Neurology Routine Arm weakness Numbness Arm pain, right Expected: 08/27/2025 (Approximate), Expires: 08/27/2026 [facility] Work Phone: Comment on above: Expected: 08/27/2025 (Approximate), Expi res: 08/27/2026 Start: 08-27-2025 End: 08-27-2025 Patient encounter procedure 08/27/2025 9:30 AM EDT Office Visit [facility] [address] [facility] [address] [place] [phone] Sergio Kasper, PA [address] [place] [address] Right arm pain (Primary Dx); Tendinitis of right forearm; Pain in right forearm [facility] Comment on above: Right arm pain (Primary Dx); Tendinitis of right forearm; Pain in right forearm Start: 08-16-2025 End: 08-16-2025 Patient encounter procedure 08/16/2025 8:30 AM EDT Office Visit [facility] [address] [facility] [address] [place] [address] Reddy Singh DPM [address] [facility] [address] [place] [address] Capsulitis of metatarsophalangeal (MTP) joint of left foot (Primary Dx); Gout of left foot, unspecified cause, unspecified chronicity; Plantar fasciitis [facility] Comment on above: Capsulitis of metatarsophalangeal (MTP) joint of left foot (Primary Dx); Gout of left foot, unspecified cause, unspecified chronicity; Plantar fasciitis Start: 07-30-2025 Influenza vaccination [facility] Start: 07-26-2025 End: 07-26-2025 Patient encounter procedure 07/26/2025 9:20 AM EDT Office Visit [facility] [address] [facility] [address] [place] [address] Reddy Singh DPM [address] [facility] [address] [place] [address] Capsulitis of metatarsophalangeal (MTP) joint of left foot (Primary Dx); Gout of left foot, unspecified cause, unspecified chronicity; Plantar fasciitis [facility] Comment on above: Capsulitis of metatarsophalangeal (MTP) joint of left foot (Primary Dx); Gout of left foot, unspecified cause, unspecified chronicity; Plantar fasciitis Start: 06-21-2025 End: 06-21-2025 Clinical Support [facility] Comment on above: Capsulitis of metatarsophalangeal (MTP) joint of left foot (Primary Dx); Gout of left foot, unspecified cause, unspecified chronicity; Plantar fasciitis Start: 06-05-2025 End: 06-05-2025 Patient encounter procedure [facility] Comment on above: Left foot pain Start: 05-22-2025 End: 05-22-2026 Urate [Mass/volume] in Serum or Plasma Uric acid Lab Routine Acute gout, unspecified cause, unspecified site Expected: 05/22/2025 (Approximate), Expires: 05/22/2026 [facility] Work Phone: Comment on above: Expected: 05/22/2025 (Approximate), Expi res: 05/22/2026 Start: 05-22-2025 End: 05-22-2026 XR Foot - left 3 Views XR foot 3+ views left Imaging Routine Left foot pain Expected: 05/22/2025, Expires: 05/22/2026 [facility] Comment on above: Expected: 05/22/2025, Expires: Start: 04-26-2025 End: 04-26-2025 Patient encounter procedure 04/26/2025 1:30 PM EDT Office Visit [facility] [address] [facility] [address] [place] [phone] Carla Cisneros PA [address] [facility] [address] [place] [address] Arrived [facility] Comment on above: Arrived Start: 02-01-2025 End: 02-01-2025 Patient encounter procedure 02/01/2025 11:30 AM EST Office Visit [facility] [address] [place] [address] Carla Cisneros PA [address] [place] [address] Arrived [facility] Comment on above: Arrived Start: 01-26-2025 End: 01-26-2025 Patient encounter procedure [facility] Comment on above: Arrived Start: 08-01-2024 End: 08-01-2024 Patient encounter procedure 08/01/2024 8:30 AM EDT Office Visit [facility] [address] [place] [address] Janeen Levi MD [address] [place] [address] [facility] Start: 07-30-2024 Influenza vaccination Influenza Vaccine (#1) [facility] Start: 07-28-2024 End: 07-28-2025 FOOD ALLERGY PROFILE WITH REFLEXES FOOD ALLERGY PROFILE WITH REFLEXES Lab Routine Allergic cough Expected: 07/28/2024 (Approximate), Expires: 07/28/2025 [facility] Work Phone: Comment on above: Expected: 07/28/2024 (Approximate), Expi res: 07/28/2025 Start: 07-28-2024 End: 07-28-2024 Patient encounter procedure 07/28/2024 11:00 AM EDT Office Visit [facility] [address] [place] [address] Carla Cisneros PA [address] [place] [address] Arrived [facility] Comment on above: Arrived C reactive protein [Mass/volume] in Serum or Plasma C-reactive protein Lab Routine Gout of left foot, unspecified cause, unspecified chronicity Ordered: 09/12/2025 [facility] Comment on above: Ordered: 09/12/2025 End: 07-28-2025 Ova and parasite screen Ova and parasite screen Microbiology Routine Alternating constipation and diarrhea 3 Occurrences starting 07/28/2024 until 07/28/2025 [facility] Comment on above: 3 Occurrences starting 07/28/2024 until 07/28/2025 Immunizations Immunization Date Immunization Notes Care Provider Maci angeles NEGATED: Highlighted row has not occurred!09-15-2024 influenza virus vaccine, unspecified formulation Dorota Arguetalilian [facility] Payers Date Payer Category Payer Medicaid [id number] 2022 Medicaid [id number] 2. [id number] 1987 Unknown [id number] 2.16.84 [id number] 1987 Unknown [id number] 2.16.8 40.1.755347.3.579.2.727 1987 Unknown [id number] 2.16.8 40.1.745865.3.579.2.727 1987 Unknown [id number] 2.16.8 40.1.235024.3.579.2.727 1987 Unknown [id number] 2.16.8 40.1.873141.3.579.2.9 1987 Unknown [id number] 2.16.8 40.1.167244.3.579.2.1259 1987 Unknown [id number] 2.16.8 40.1.451271.3.579.2.1259 1987 Unknown [id number] 2.16.8 40.1.515477.3.579.2.9 1987 Unknown [id number] 2.16.8 40.1.752844.3.579.2.1259 1987 Unknown [id number] 2.16.8 40.1.746752.3.579.2.1259 1987 Unknown [id number] 2.16.8 40.1.781125.3.579.2.9 1987 Unknown [id number] 2.16.8 40.1.248317.3.579.2.9 1987 Unknown [id number] 2.16.8 40.1.746448.3.579.2.9 1987 Unknown [id number] 2.16.8 40.1.192143.3.579.2.9 1987 Unknown [id number] 2.16.84 0.1.265026.3.579.2.9 1987 Unknown [id number] 2.16.84 0.1.837737.3.579.2.9 1987 Unknown [id number] 2.16.84 0.1.282088.3.579.2.9 1987 Unknown [id number] 2.16.84 0.1.460756.3.579.2.1259 1959 Unknown [id number] Social History Date Type Detail Facility Unknown if ever smoked [employer] Other Start: 07-28-2024 End: 05-22-2025 Sex Assigned At [facility] Start: 05-03-2023 End: 08-07-2024 Tobacco smoking status Never smoked tobacco (finding) [facility] Start: 02-10-2023 Tobacco smoking status Never [facility] Start: 05-03-2023 Tobacco use and exposure Smokeless tobacco non-user [facility] Start: 07-28-2024 End: 09-06-2025 Alcoholic beverage intake Ex-drinker (finding) [facility] Start: 07-28-2024 End: 05-22-2025 History of Social function [facility] Start: 1985 Sex assigned at Not on file [facility] Functional Status Date Assessment Result Facility 05-22-2025 Patient Health Quest ionnaire 2 item (PHQ-2) [Reported] [facility] 04-26-2025 Patient Health Quest ionnaire 2 item (PHQ-2) [Reported] [facility] 09-15-2024 Functional Status N/A [facility] 08-16-2024 Functional Status N/A [facility] 08-07-2024 Functional Status N/A [facility] Clinical Notes 07-21-2023 to 09-12-2025 Reddy Singh, MEHRDADM - 09/12/2025 4:10 PM EDTNicrenetta Singh, BASSAM - 09/06/2025 9:00 AM EDTJr. Beto Knight, DO - 09/05/2025 9:45 AM EDTMattveronika Kasper PA - 08/27/2025 9:30 AM EDT Note Date & Type Note Facility 09-12-2025 History of Present illness Narrative Patient: Andrea Schofield : 1985 PCP: Janeen Levi MD SUBJECTIVE [...] 1 spray into each nostril Daily PRN, Disp: 9.9 mL, Rfl: 5 ibuprofen 800 MG tablet, [...] or chew., Disp: 90 capsule, Rfl: 3 pnygirlbvzxnskq-VF-ZY 60-15-400 MG tablet, Take 1 tablet by [...] with aspiration of lidocaine and synovial joint fluid to the left 1st MPJ today with follow up 2 weeks Prescriptions for colchicine today Ordered labs from [facility] of uric acid as well as CRP Reddy Singh DPM documented in this encounter [facility] 09-06-2025 History of Present illness Narrative Patient: Andrea Schofield : 1985 PCP: Janeen Levi MD SUBJECTIVE [...] the joint and took ibuprofen with positive improvement. States it has resolved and occurred directly after [...] 1 spray into each nostril Daily PRN, Disp: 9.9 mL, Rfl: 5 methylPREDNISolone (Medrol Dospak) 4 [...] or chew., Disp: 90 capsule, Rfl: 3 reezujghsyywonm-IP-JB 60-15-400 MG tablet, Take 1 tablet by [...] Pro implant in the future if no improvement in patient to follow up if has episodes Reddy Singh DPM documented in this encounter [facility] 09-05-2025 History of Present illness Narrative Images from the original note were not included. HISTORY OF PRESENT ILLNESS: EST PT Andrea Schofield is an 40 y.o. @ male. (EST PT) (LAST APPT W/ KLEVER)- RECHECK (R) FOREARM DISCOMFORT S/P (R) UE EMG 09/03/25 @[facility] - HERE FOR RESULTS / OPTIONS NO [...] tablets Follow schedule on MEDROL PACK package instructions to be used as directed Multiple Vitamin (MULTIVITAMIN ADULT PO) 1 tablet, Daily omeprazole (PRILOSEC) 40 mg, Oral, Daily RT, Do not crush or chew. mivjfnnbiohjugh-FB-YB 60-15-400 MG tablet 1 tablet, Oral, Every [...] Referral Reason: Specialty Services Required Referral Location: [facility] Scheduling Requested Specialty: Physical Therapy Number of Visits Requested: 1 ASSESSMENT: ICD-10-CM 1. 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 I feel he is a flexor carpi ulnaris strain sprain chronic from October 2023. We recommended physical therapy 3 times a week for 6 weeks. We'll see him back in 6 weeks. If his symptoms persist or worsen we would probably recommend a second opinion from Dr. Herring or Jalen. Questions answered in laymen terms at the bedside. The diagnosis, home exercise plan and any ongoing restrictions/ recommendations reviewed. If unable to be reached in office, I recommend evaluation at nearest Emergency Room if any symptoms worsened or new symptoms develop for requiring urgent evaluation. documented in this encounter [facility] 09-03-2025 Telephone encounter Note Sent ibu to pharmacy on record and patient declined appointment in the next 24 hours and will follow up in 4 days for scheduled appointment [facility] 09-03-2025 Miscellaneous Notes Sent ibu to pharmacy on record and patient declined appointment in the next 24 hours and will follow up in 4 days for scheduled appointment Pt called saying they had a bad gout flare up, asking if they can take motrin to help with the pain. documented in this encounter [facility] 09-03-2025 Telephone encounter Note Pt called saying they had a bad gout flare up, asking if they can take motrin to help with the pain. [facility] 08-27-2025 History of Present illness Narrative Orthopedic Office note: NAME: Andrea Schofield : 1985 (EST PT) (NEW PROBLEM) ([facility] C[facility]NER[facility] REFERRAL) - INCREASING (R) FOREARM DISCOMFORT SINCE 06/2024 (1 YR, 2 MONTHS) ; NKI NO RECENT XRAY NO EMG MRI (R) FOREARM 03/01/25 IN EPIC MDP (FOOT) 08/16/25 - NO RELIEF PREDNISONE 02/01/25 (PCP) - NO RELIEF NO CORTISONE INJ STATES HE WAS CARRYING HEAVY BOOKS AFTER MOVING AN OFFICE ~1 YR AGO. CONSTANT ANTERIOR ACHING DISCOMFORT - CAN RADIATE TO PALM - WORSE WITH CERTAIN POSITIONS. DIFFICULTY WITH HOLDING OBJECTS UP WHILE LYING DOWN. INTERMITTENT NUMBNESS. MINIMAL TINGLING. CAN HAVE SOME INFLAMMATION / SWELLING TO ULNAR ASPECT / WRIST. GOOD ROM TO ELBOW / WRIST. ADMITS WEAKNESS / STIFFNESS. CAN WAKING HS. IBU PRN. TRIED BRACING / COMPRESSION SLEEVE - NO RELIEF. VOLTAREN - NO RELIEF. TRIED ICING - NO RELIEF. HAS TRIED STRETCHING. 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 Physical Exam General Appearance: Normal. Respiratory: No acute distress. Musculoskeletal: Right arm: Normal inspection with no atrophy. Radial pulse is 2+. Compartments are soft. Full rib knitter strength 5/5. Finger flexion and extension and thumb flexion, extension all 5/5 against resistance. Wrist flexion, extension 5/5. Full range of motion and full strength with pronation, supination, and elbow flexion, extension all 5/5. No tenderness with palpation of the forearm. No acute motor deficit. Right hand: Increased dullness in median nerve distribution with pinprick test compared to the left. Negative Tinel's. Negative Phalen's. Symmetric two-point discrimination. Skin: Warm and dry, no rash. Neurological: Normal. Orders Placed This Encounter Procedures EMG AND NERVE CONDUCTION STUDY Standing Status: Future Expected Date: 08/27/2025 Expiration Date: 08/27/2026 Scheduling Instructions: Rt Upper Extremity EMG - Please schedule with Dr. Lake. Procedures Results MRI 03/01/25: (R) forearm, no acute fracture. - Imaging: - MRI: Reviewed at the bedside ICD-10-CM 1. Pain in right forearm M79.631 Ambulatory referral to Orthopaedic Surgery 2. Arm weakness R29.898 EMG AND NERVE CONDUCTION STUDY 3. Numbness R20.0 EMG AND NERVE CONDUCTION STUDY 4. Arm pain, right M79.601 EMG AND NERVE CONDUCTION STUDY F/U Dr. Knight s/p EMG RUE to discuss need for possible: Carpal tunnel release: Surgical and non surgical tx options discussed with conservative measures reviewed. Recommend ICE/ ELEVATION, continued activity modification in interim. Pt would consider surgical intervention to possibly improve symptoms. Assessment & Plan Right forearm discomfort: Symptoms, including discomfort in the forearm mostly with computer work and during a long drive, are concerning for possible carpal tunnel syndrome. Instead of the majority of symptoms being referred into the hand, they are getting referred into the forearm. Other areas of possible nerve compression that can lead to similar symptoms were discussed. Diagnostic plan: An EMG has been recommended for further evaluation. MRI was reviewed at the bedside. Treatment plan: No additional medications will be prescribed at this time. Clinical decision making: Follow-up with the attending physician to discuss potential surgical treatment options given the length of symptoms. Follow-up: He expressed gratitude and had no further concerns or questions. Pt does have difficulty shooting a basketball, loss of power. Notes long standing neck tightness Questions answered in laymen terms at the bedside. The diagnosis, home exercise plan and any ongoing restrictions/ recommendations reviewed. If unable to be reached in office, I recommend evaluation at nearest Emergency Room if any symptoms worsened or new symptoms develop for requiring urgent evaluation. Visit was preformed using [employer] mixer speech recognition. documented in this encounter [facility] 08-16-2025 History of Present illness Narrative Patient: Andrea Schofield : 1985 PCP: Janeen Levi MD SUBJECTIVE This is a 40 y.o. male that presents today for a follow up of right foot plantar fascitis for the past year. He has tried different shoes and nsaids with positive improvement. Patient rates pain a 3/10. Pt has been wearing orthotics with some improvement. Patient presents today for follow up of capsulitis and synovitis to the left first MPJ Currently they rate their pain on a 1-10 scale a 3 States prior treatments of steroid injection and nsaids with positive improvement in the past. States pain is aggrevated with WB. Pt had recent episode of gout with medrol in the past with relief. Allergies: Allergies Allergen Reactions Erythromycin Base Unknown [...] 1 spray into each nostril Daily PRN, Disp: 9.9 mL, Rfl: 5 Multiple Vitamin (MULTIVITAMIN ADULT PO), Take 1 tablet by mouth 1 (one) time each day., Disp: , Rfl: omeprazole (PriLOSEC) [address] capsule, Take 1 capsule (40 mg) by mouth in the morning. Do not crush or chew., Disp: 90 capsule, Rfl: 3 [id number]-[id number] 60-15-400 MG tablet, Take 1 tablet by [...] 10 degrees b/l. diminished pain on palpation to left 1st MPJ minimal pain on palpation along right plantar fascial band diminished pain on palpation to the 1st MPJ left less than 65 degrees dorsiflexion with negative crepitus XRAY: ASSESSMENT 1. Capsulitis of metatarsophalangeal (MTP) joint of left foot 2. Gout of left foot, unspecified cause, unspecified chronicity 3. Plantar fasciitis PLAN Prescription today for Medrol pack Continue with orthotics Reddy Singh DPM documented in this encounter [facility] 07-26-2025 History of Present illness Narrative Patient: Andrea Schofield : 1985 PCP: Janeen Levi MD SUBJECTIVE This is a 40 y.o. male that presents today for a follow up of right foot plantar fascitis for the past year. He has tried different shoes and nsaids with positive improvement. Patient rates pain a 2/10. Patient presents today for follow up of capsulitis and synovitis to the left first MPJ Currently they rate their pain on a 1-10 scale a 5 States prior treatments of steroid injection and nsaids with positive improvement in the past. States pain is aggrevated with WB. Pt had recent episode of gout with medrol in the past with relief. Presents today for orthotics that are covered by insurance. Allergies: Allergies Allergen Reactions Erythromycin Base Unknown [...] 1 spray into each nostril Daily PRN, Disp: 9.9 mL, Rfl: 5 Multiple Vitamin (MULTIVITAMIN ADULT PO), Take 1 tablet by mouth 1 (one) time each day., Disp: , Rfl: omeprazole (PriLOSEC) [address] capsule, Take 1 capsule (40 mg) by mouth in the morning. Do not crush or chew., Disp: 90 capsule, Rfl: 3 [id number]-[id number] 60-15-400 MG tablet, Take 1 tablet by [...] Ankle ROM less than 10 degrees b/l. positive pain on palpation to left 1st MPJ diminished pain on palpation along right plantar fascial band positive pain on palpation to the 1st MPJ left less than 65 degrees dorsiflexion with negative crepitus XRAY: ASSESSMENT 1. Capsulitis of metatarsophalangeal (MTP) joint of left foot 2. Gout of left foot, unspecified cause, unspecified chronicity 3. Plantar fasciitis PLAN Patient to continue with oral anti - inflammatories as needed for pain and recommended OTC medications such as tylenol or Ibuprofen Pt was fitted for custom made orthotics today. Orthotics were deemed to fit appropriately and patient was informed of proper break in of devices. Patient education on break in of device. ABN signed and in chart if warranted. Reddy Singh DPM documented in this encounter [facility] 06-21-2025 History of Present illness Narrative Patient: Andrea Schofield : 1985 PCP: Janeen Levi MD SUBJECTIVE This is a 40 y.o. male that presents today for a follow up of right foot plantar fascitis for the past year. He has tried different shoes and nsaids with positive improvement. Patient rates pain a 2/10. Patient presents today for follow up of capsulitis and synovitis to the left first MPJ Currently they rate their pain on a 1-10 scale a 0-1 States prior treatments of steroid injection and nsaids with positive improvement States pain is aggrevated with WB. Pt had recent episode of gout with medrol in the past with minimal relief. Allergies: Allergies Allergen Reactions Erythromycin Base Unknown [...] 1 spray into each nostril Daily PRN, Disp: 9.9 mL, Rfl: 5 Multiple Vitamin (MULTIVITAMIN ADULT PO), Take 1 tablet by mouth 1 (one) time each day., Disp: , Rfl: omeprazole (PriLOSEC) [address] capsule, Take 1 capsule (40 mg) by mouth in the morning. Do not crush or chew., Disp: 90 capsule, Rfl: 3 kkpeabughysaqyv-FV-RN 60-15-400 MG tablet, Take 1 tablet by [...] skin turgor noted. Negative openings in skin. negativeedema and erythema and podagra to the left 1st MPJ VASC: Palpable pedal pulsed b/l with warm to cool tibia to toes b/l NEURO: Gross sensation intact digits 1-10 and b/l feet ORTHO: +5/5 DF/PF/IN/EV right, +5/5 DF/PF/IN/EV left. 20 degrees inversion and 10 degrees eversion STJ b/l. Ankle ROM less than 10 degrees b/l. negative pain on palpation to left 1st MPJ diminished pain on palpation along right plantar fascial band diminished pain on palpation to the 1st MPJ left less than 65 degrees dorsiflexion with negative crepitus XRAY: ASSESSMENT 1. Capsulitis of metatarsophalangeal (MTP) joint of left foot 2. Gout of left foot, unspecified cause, unspecified chronicity 3. Plantar fasciitis PLAN Patient to continue with oral anti - inflammatories as needed for pain and recommended OTC medications such as tylenol or Ibuprofen Pt presents today for casting of a removable foot inserts/orthotics today that was accomplished with scanning of feet and sent to orthotics lab.(L3020 right and L3020 left foot). Pt to have signed ABN for device if needed. It was explained to the patient of a break in period for the devices. The patient is ambulatory may benefit functionally for this device. It may be used for the following conditions as noted per EMR. Reddy Singh DPM documented in this encounter [facility] 06-05-2025 History of Present illness Narrative Patient: Andrea Schofield : 1985 PCP: Janeen Levi MD SUBJECTIVE This is a 40 y.o. male that presents today for a chief complaint of pain to the right arch region and heel for the past year. He states painful ambulation particularly with 1st steps has tried [id number] arch supports with minimal improvement rates pain a 3/10 and dull and achy had times Patient also has complaints of redness and swelling to left great toe joint and has been placed on a Medrol Dosepak proximally 2 weeks ago with negative history of trauma. He stated some improvement but still rates pain about a 4/10 at this time. Patient denies n/f/v/c.. Allergies: Allergies Allergen Reactions Erythromycin Base Unknown [...] 1 spray into each nostril Daily PRN, Disp: 9.9 mL, Rfl: 5 Multiple Vitamin (MULTIVITAMIN ADULT PO), Take 1 tablet by mouth 1 (one) time each day., Disp: , Rfl: omeprazole (PriLOSEC) [address] capsule, Take 1 capsule (40 mg) by mouth in the morning. Do not crush or chew., Disp: 90 capsule, Rfl: 3 leyfizcvltueoot-NJ-AG 60-15-400 MG tablet, Take 1 tablet by [...] ROS: General: denies fever, chills, fatigue, malaise Gastrointestinal: denies abdominal pain, ulcers, or changes in appetite or bowel habits Musculoskeletal: denies arthritis, denies loss of strength, pain to hip, knees, back Cardiovascular: denies CP, palpitations, irregular rhythms OBJECTIVE LE EXAM: DERM: Positive hair growth to b/l feet with good skin turgor noted. Negative openings in skin. Slight edema erythema and podagra to the left 1st MPJ VASC: Palpable pedal pulsed b/l with warm to cool tibia to toes b/l NEURO: Gross sensation intact digits 1-10 and b/l feet ORTHO: +5/5 DF/PF/IN/EV right, +5/5 DF/PF/IN/EV left. 20 degrees inversion and 10 degrees eversion STJ b/l. Ankle ROM less than 10 degrees b/l. Positive pain on palpation to left 1st MPJ Positive pain on palpation along right plantar fascial band Positive pain on palpation to the 1st MPJ left less than 65 degrees dorsiflexion with negative crepitus XRAY: US: DIAGNOSTIC ULTRASOUND REPORT: Verbal order for ultrasound today The 1stMPJ capsule of the left foot was examined with a 12 MHz linear probe in the transverse and sagital planes on the capsular regions of the MPJ. Images obtained. FINDINGS: Ultrasound exam demonstrates capsulitis/inflammation and a hypoechoic signal at plantar capsule on a series of sagittal and transverse images. The plantar plate examined as well with plantar joint capsule intact. IMPRESSION: Ultrasound findings indicated capsulitis of the left 1st MPJ. ASSESSMENT 1. Capsulitis of metatarsophalangeal (MTP) joint of left foot 2. Left foot pain 3. Gout of left foot, unspecified cause, unspecified chronicity 4. Plantar fasciitis PLAN Patient to continue with oral anti - inflammatories as needed for pain and recommended OTC medications such as tylenol or Ibuprofen Pre-certify for inserts Reviewed ultrasound today with patient Pt was given steroid injection to the medial and lateral capsular ligaments of the left 1st MPJ under US guidance with visualization of injected fluid into area of concern per imaging. Injection consisted of a 2:1 mixture of xylocaine 2%plain and kenalog 10 for a total of 3ccs. Informed pt of risks and benefits of procedure including infection,damage or rupture to soft tissue structures and steroid flare. Pt understood and consented. This is the patients 1st injection Reddy Singh DPM documented in this encounter [facility] 05-24-2025 Telephone encounter Note Pt called requesting call back for medical concern. (See patient message from today) Was on vacation recently and was knee boarding. Continues to have right lower leg pain/swelling. Feels better when he has his shoes on and he is sitting in his office chair. When he elevates his leg it feels like it makes it throb more. Even kept his shoes on and it didn't help. Looked back and [facility] placed him on Prednisone in the past with good relief of his knee swelling at that time. Prednisone sent in for pt. Consider US if worsens or fails to improve. Contact office with concerns. Pt voiced understanding. [facility] 05-24-2025 Miscellaneous Notes Pt called requesting call back for medical concern. (See patient message from today) Was on vacation recently and was knee boarding. Continues to have right lower leg pain/swelling. Feels better when he has his shoes on and he is sitting in his office chair. When he elevates his leg it feels like it makes it throb more. Even kept his shoes on and it didn't help. Looked back and [facility] placed him on Prednisone in the past with good relief of his knee swelling at that time. Prednisone sent in for pt. Consider US if worsens or fails to improve. Contact office with concerns. Pt voiced understanding. documented in this encounter [facility] 05-22-2025 History of Present illness Narrative Images from the original note were not included. Subjective Patient ID: Arnol Schofield is a 40 y.o. male who presents for foot pain. Arnol presents today for left foot pain. He went knee boarding on Wednesday, he is now having pain when the knee will twist. When he walks he has pain on the inside of the foot. Patient did take 600 mg of motrin for pain today. Foot Injury The incident occurred 2 days ago. The incident occurred at home. Injury mechanism: rock climbing and knee boarding. The pain is present in the left foot. The quality of the pain is described as aching. Associated symptoms include a loss of motion. Associated symptoms comments: Left great toe. He reports no foreign bodies present. The symptoms are aggravated by movement, weight bearing and palpation. Treatments tried: Ibuprofen, compression. The treatment provided no relief. Over the past 2 weeks, how often have you been bothered by any of the following problems? Little interest or pleasure in doing things: Not at all Feeling down, depressed, or hopeless: Not at all Patient Health Questionnaire-2 Score: 0 Current Outpatient Medications on File Prior to Visit Medication Sig Dispense Refill carboxymethylcellulose (Refresh Plus) 0.5 % ophthalmic solution 1 drop if needed for dry eyes cetirizine (ZyrTEC) 10 MG tablet Take 10 mg by mouth Daily as needed for allergies fluticasone (Flonase) 50 MCG/ACT nasal spray Administer 1 spray into each nostril Daily PRN 9.9 mL 5 Multiple Vitamin (MULTIVITAMIN ADULT PO) Take 1 tablet by mouth 1 (one) time each day. omeprazole (PriLOSEC) [address] capsule Take 1 capsule (40 mg) by mouth in the morning. Do not crush or chew. 90 capsule 3 epketmcdkmvebqb-EQ-GN 60-15-400 MG tablet Take 1 tablet by mouth every 6 (six) hours if needed (Cough) 28 tablet 0 No current facility-administered medications on file prior to visit. I have reviewed and reconciled the history and medication list with the patient today. Allergies Allergen Reactions Erythromycin Base Unknown Social History Tobacco Use Smoking status: Never Smokeless tobacco: Never Vaping Use Vaping status: Never Used Substance Use Topics Alcohol use: Not Currently Drug use: Never Family History Problem Relation Name Age of Onset Colon cancer Other Past Medical History: Diagnosis Date GERD (gastroesophageal reflux disease) Past Surgical History: Procedure Laterality Date KNEE ARTHROSCOPY W/ MENISCAL REPAIR Left 11/11/2022 Partial Medial Meniscectomy TONSILLECTOMY WISDOM TOOTH EXTRACTION Visit Vitals Smoking Status Never Review of Systems Constitutional: Negative. HENT: Negative. Eyes: Negative. Gastrointestinal: Negative. Genitourinary: Negative. Musculoskeletal: Left foot pain Skin: Negative. Neurological: Negative. Psychiatric/Behavioral: Negative. All other systems reviewed and are negative. Endocrine: Negative. Objective Physical Exam Vitals reviewed. Constitutional: Appearance: Normal appearance. HENT: Head: Normocephalic. Mouth/Throat: Mouth: Mucous membranes are moist. Pharynx: Oropharynx is clear. Eyes: Conjunctiva/sclera: Conjunctivae normal. Cardiovascular: Rate and Rhythm: Normal rate. Pulmonary: Effort: Pulmonary effort is normal. Musculoskeletal: Left foot: Decreased range of motion. Tenderness present. Comments: Left great toe with increased redness and warmth consistent with gout Skin: General: Skin is warm and dry. Neurological: General: No focal deficit present. Mental Status: He is alert and oriented to person, place, and time. Psychiatric: Mood and Affect: Mood normal. Behavior: Behavior normal. Thought Content: Thought content normal. Assessment/Plan Diagnoses and all orders for this visit: Acute gout, unspecified cause, unspecified site - Uric acid; Future Await lab. If uric acid is elevated, will order colchicine Left foot pain - XR foot 3+ views left; Future Await xray No follow-ups on file. documented in this encounter [facility] 04-26-2025 History of Present illness Narrative HPI Med Refill Additional comments: Omeprazole Last edited by Patricia Figueroa LPN on 04/26/2025 1:35 PM. Subjective Patient ID: Arnol Schofield is a 39 y.o. male who presents for sinus issues. Arnol is present today for evaluation of possible sinus infection. Admits sinus pressure, nasal congestion, runny nose bright yellow, headaches, bilateral ear discomfort (muffled hearing), throat scratchy, cough with yellow/brown mucus, post nasal drainage, hoarseness, fatigue. He has been sick for 2 day, He has been taking Dayquil, Nyquil, Sudafed. He feels he is not getting any better. Current Outpatient Medications on File Prior to Visit Medication Sig Dispense Refill cetirizine (ZyrTEC) 10 MG tablet Take 10 mg by mouth Daily as needed for allergies carboxymethylcellulose (Refresh Plus) 0.5 % ophthalmic solution 1 drop if needed for dry eyes fluticasone (Flonase) 50 MCG/ACT nasal spray Administer 1 spray into each nostril Daily PRN 9.9 mL 5 Multiple Vitamin (MULTIVITAMIN ADULT PO) Take 1 tablet by mouth 1 (one) time each day. [DISCONTINUED] omeprazole (PriLOSEC) [address] capsule TAKE 1 CAPSULE BY MOUTH BEFORE MORNING MEAL EVERY DAY 90 capsule 4 No current facility-administered medications on file prior to visit. I have reviewed and reconciled the history and medication list with the patient today. Allergies Allergen Reactions Erythromycin Base Unknown Social History Tobacco Use Smoking status: Never Smokeless tobacco: Never Vaping Use Vaping status: Never Used Substance Use Topics Alcohol use: Not Currently Drug use: Never Family History Problem Relation Name Age of Onset Colon cancer Other Past Medical History: Diagnosis Date GERD (gastroesophageal reflux disease) Past Surgical History: Procedure Laterality Date KNEE ARTHROSCOPY W/ MENISCAL REPAIR Left 11/11/2022 Partial Medial Meniscectomy TONSILLECTOMY WISDOM TOOTH EXTRACTION Visit Vitals BP 112/68 Pulse 79 Temp 98.6 F Resp 16 Ht 6' 3 Wt 243 lb SpO2 95% BMI 30.37 kg/m Smoking Status Never BSA 2.41 m Review of Systems Constitutional: Positive for fatigue. Negative for chills and fever. HENT: Positive for congestion, ear pain, postnasal drip, rhinorrhea, sinus pressure, sinus pain, sore throat and voice change. Respiratory: Positive for cough. Negative for shortness of breath and wheezing. Cardiovascular: Negative for chest pain, palpitations and leg swelling. Gastrointestinal: Negative for abdominal pain, constipation, diarrhea, nausea and vomiting. Skin: Negative for rash. Neurological: Positive for headaches. Objective Physical Exam Constitutional: General: He is not in acute distress. Appearance: He is ill-appearing (Mildly). HENT: Head: Normocephalic and atraumatic. Right Ear: Ear canal normal. A middle ear effusion is present. Left Ear: Ear canal normal. A middle ear effusion is present. Tympanic membrane is erythematous (Mild). Nose: Congestion and rhinorrhea present. Rhinorrhea is purulent. Right Turbinates: Swollen. Left Turbinates: Swollen. Right Sinus: Maxillary sinus tenderness and frontal sinus tenderness present. Left Sinus: Maxillary sinus tenderness and frontal sinus tenderness present. Comments: Voice is nasal Mouth/Throat: Mouth: Mucous membranes are moist. Pharynx: Posterior oropharyngeal erythema and postnasal drip present. Eyes: General: No scleral icterus. Cardiovascular: Rate and Rhythm: Normal rate and regular rhythm. Heart sounds: No murmur heard. Pulmonary: Effort: Pulmonary effort is normal. No respiratory distress. Breath sounds: Normal breath sounds. No wheezing, rhonchi or rales. Musculoskeletal: General: No swelling. Lymphadenopathy: Cervical: Cervical adenopathy (Mild bilateral submandibular) present. Skin: General: Skin is warm and dry. Neurological: General: No focal deficit present. Mental Status: He is alert and oriented to person, place, and time. Psychiatric: Mood and Affect: Mood normal. Behavior: Behavior normal. Assessment/Plan Diagnoses and all orders for this visit: Acute left otitis media - cefdinir (Omnicef) 300 MG capsule; Take 1 capsule (300 mg) by mouth in the morning and 1 capsule (300 mg) before bedtime. Do all this for 10 days. Start the above as directed. Reviewed potential s/e with patient. Encouraged probiotic while on antibiotic. Increase water intake, get plenty of rest. Can take OTC Tylenol/Motrin prn. Follow up if no improvement in one week. Acute non-recurrent pansinusitis - rknfcxayrykxcxh-ZZ-KK 60-15-400 MG tablet; Take 1 tablet by mouth every 6 (six) hours if needed (Cough) Capmist prn for symptom relief. Advised may cause drowsiness. Gastro-esophageal reflux disease without esophagitis - omeprazole (PriLOSEC) [address] capsule; Take 1 capsule (40 mg) by mouth in the morning. Do not crush or chew. Refill provided on the above. He can continue to take it as needed. Follow up if symptoms worsen or fail to improve. documented in this encounter [facility] 03-01-2025 Telephone encounter Note My chart message sent. [facility] 03-01-2025 Miscellaneous Notes My chart message sent. documented in this encounter [facility] 02-01-2025 History of Present illness Narrative Images from the original note were not included. Subjective Patient ID: Arnol Schofield is a 39 y.o. male who presents for possible sinus infection. Arnol is present today for evaluation of possible sinus infection. Admits sinus pressure/pain, nasal congestion, runny nose clear/yellow mucous, sore throat off/on, bilateral ear discomfort, post nasal drainage, fatigue. He has been sick for about 2 weeks. He has been using Nyquil and not getting any better, feels he is getting worse. Complains of continued right forearm discomfort, dull annoying ache, since June of last year. Pain comes and goes, worsens with certain triggers. Computer work and some positions it is in while he is sleeping can aggravate it. Carrying books bother him. Wrist brace helps occasionally. Has tried ergonomic pads when using his computer, and tried other positions, without relief. Has tried compression sleeve, Motrin prn also without lasting relief. Current Outpatient Medications on File Prior to Visit Medication Sig Dispense Refill carboxymethylcellulose (Refresh Plus) 0.5 % ophthalmic solution 1 drop if needed for dry eyes fluticasone (Flonase) 50 MCG/ACT nasal spray Administer 1 spray into each nostril Daily PRN 9.9 mL 5 Multiple Vitamin (MULTIVITAMIN ADULT PO) Take 1 tablet by mouth 1 (one) time each day. omeprazole (PriLOSEC) [address] capsule TAKE 1 CAPSULE BY MOUTH BEFORE MORNING MEAL EVERY DAY 90 capsule 4 [DISCONTINUED] famotidine (Pepcid) 20 MG tablet Take 1 tablet (20 mg) by mouth at bedtime 30 tablet 2 [DISCONTINUED] loratadine (Claritin) 10 MG tablet Take 1 tablet (10 mg) by mouth Daily 30 tablet 2 No current facility-administered medications on file prior to visit. I have reviewed and reconciled the history and medication list with the patient today. Allergies Allergen Reactions Erythromycin Base Unknown Social History Tobacco Use Smoking status: Never Smokeless tobacco: Never Vaping Use Vaping status: Never Used Substance Use Topics Alcohol use: Not Currently Drug use: Never Family History Problem Relation Name Age of Onset Colon cancer Other Past Medical History: Diagnosis Date GERD (gastroesophageal reflux disease) Past Surgical History: Procedure Laterality Date KNEE ARTHROSCOPY W/ MENISCAL REPAIR Left 11/11/2022 Partial Medial Meniscectomy TONSILLECTOMY WISDOM TOOTH EXTRACTION Visit Vitals BP 106/82 Pulse 71 Temp 98.8 F Resp 16 Ht 6' 3 Wt 240 lb 9.6 oz SpO2 98% BMI 30.07 kg/m Smoking Status Never BSA 2.4 m Review of Systems Constitutional: Positive for fatigue. Negative for chills and fever. HENT: Positive for congestion, ear pain, postnasal drip, rhinorrhea, sinus pressure, sinus pain and sore throat. Respiratory: Negative for cough, shortness of breath and wheezing. Cardiovascular: Negative for chest pain, palpitations and leg swelling. Gastrointestinal: Negative for abdominal pain, constipation, diarrhea, nausea and vomiting. Skin: Negative for rash. Objective Physical Exam Constitutional: General: He is not in acute distress. Appearance: He is ill-appearing (Mildly). HENT: Head: Normocephalic and atraumatic. Right Ear: Ear canal normal. A middle ear effusion is present. Left Ear: Ear canal normal. A middle ear effusion is present. Nose: Congestion present. Right Turbinates: Swollen. Left Turbinates: Swollen. Right Sinus: Maxillary sinus tenderness and frontal sinus tenderness present. Left Sinus: Maxillary sinus tenderness and frontal sinus tenderness present. Mouth/Throat: Mouth: Mucous membranes are moist. Pharynx: Posterior oropharyngeal erythema (Moderate) and postnasal drip present. Eyes: General: No scleral icterus. Cardiovascular: Rate and Rhythm: Normal rate and regular rhythm. Heart sounds: No murmur heard. Pulmonary: Effort: Pulmonary effort is normal. No respiratory distress. Breath sounds: Normal breath sounds. No wheezing, rhonchi or rales. Musculoskeletal: General: No swelling. Right forearm: Tenderness present. No swelling, deformity or bony tenderness. Right wrist: No tenderness. Normal range of motion. Right hand: Normal range of motion. Normal strength. Normal sensation. Normal capillary refill. Normal pulse. Arms: Comments: Area of tenderness is unchanged since last year. Strength for BUE is 5/5 throughout. Middle finger extension test on right is negative. Pain with right wrist extension. Lymphadenopathy: Cervical: Cervical adenopathy (Submandibular) present. Skin: General: Skin is warm and dry. Neurological: General: No focal deficit present. Mental Status: He is alert and oriented to person, place, and time. Psychiatric: Mood and Affect: Mood normal. Behavior: Behavior normal. Assessment/Plan Diagnoses and all orders for this visit: Tendinitis of right forearm - predniSONE (Deltasone) 10 MG tablet; Take 1 tablet (10 mg) by mouth 3 (three) times a day for 3 days, THEN 1 tablet (10 mg) 2 (two) times a day for 3 days, THEN 1 tablet (10 mg) Daily for 3 days. Patient has tried bracing, compression sleeve, ergonomic computer pads, topical anti-inflammatories, Ibuprofen, without relief. Will have him rest the arm as often as possible for the next two weeks, avoiding any direct pressure on the area of discomfort. Also start Prednisone as prescribed. Take with food. No NSAIDs while on the steroid. Tylenol prn ok. If no improvement over the next two weeks, will plan on ordering an MRI for further evaluation of the area. Acute non-recurrent pansinusitis - cefdinir (Omnicef) 300 MG capsule; Take 1 capsule (300 mg) by mouth in the morning and 1 capsule (300 mg) before bedtime. Do all this for 7 days. Start the above as directed. Reviewed potential s/e with patient. Encouraged probiotic while on antibiotic. Increase water intake, get plenty of rest. Can take OTC allergy medication for symptomatic relief if needed. Contact office if no improvement in one week. Follow up if symptoms worsen or fail to improve. documented in this encounter [facility] 01-26-2025 History of Present illness Narrative Skin Check Location: Patient requests a full body skin examination Dermatologic history: no history of skin cancer, no history of atypical moles, no family history of melanoma Last visit: 1 year ago Established patient Lesions: Location: left chest Duration: weeks Quality: painful Modifying factors: none Associated symptoms: draining, enlarged, non-healing, red, tender Treatments: none Lesions: Location: mid tip of nose Duration: months Quality: denies pain, denies itch Modifying factors: none Associated symptoms: non-healing, red Treatments: none All pertinent medical history, medications, and allergies were reviewed. General Exam: alert, oriented to person, place, and time, normal affect, well appearing Unaccompanied Scalp, Examined , exam limited by hair Right leg Examined Head, Face Examined , Exam limited by monahan and mustache Left leg Examined Neck Examined Right foot Not examined Chest Examined Left foot Not examined Back Examined Buttocks Not examined Abdomen Examined Digits,nails: Examined Right arm Examined Left arm Examined Lymphatics: Not examined Hands Examined 1. EIC (epidermal inclusion cyst) Left Breast Erythematous, subcutaneous nodule Patient was counseled regarding cysts. Although benign, cysts often slowly enlarge and can occasionally become inflamed. Discussed the only way to definitively diagnose the lesion would be to have it removed and tested. Discussed treatment options including observation vs. excision. The inflammation is starting to decrease, patient will monitor. If this continues to be inflamed he was advised to call for an appointment for reevaluation. 2. Melanocytic nevus of trunk Scattered benign appearing, regular brown to light brown melanocytic papules and macules with similar morphology Counseled regarding these benign growths. Rarely, a nevus can develop into malignant melanoma, so any changing nevi should be promptly re-evaluated. 3. Seborrheic keratosis (2) Generalized, Mid Tip of Nose Stuck on verrucous, orozco-brown papules and plaques. Patient was counseled regarding these benign growths. Removal is normally not necessary, but they may be removed if they are symptomatic or for cosmetic reasons. 4. Capillary angioma Scattered tate-red papule(s). The patient was informed that angiomas are benign growths on the the skin. No treatment is necessary. Next Visit: 1 year documented in this encounter [facility] 08-16-2024 Hospital Discharge instructions Patient Education 08/16/2024 15:06:57 Upper Endoscopy, Adult, Care After Upper Endoscopy, Adult, Care After After the procedure, it is common to have a sore throat. It is also common to have: Mild stomach pain or discomfort. Bloating. Nausea. Follow these instructions at home: The instructions below may help you care for yourself at home. Your health care provider may give you more instructions. If you have questions, ask your health care provider. If you were given a sedative during the procedure, it can affect you for several hours. Do not drive or operate machinery until your health care provider says that it is safe. If you will be going home right after the procedure, plan to have a responsible adult: ?Take you home from the hospital or clinic. You will not be allowed to drive. ?Care for you for the time you are told. Follow instructions from your health care provider about what you may eat and drink. Return to your normal activities as told by your health care provider. Ask your health care provider what activities are safe for you. Take bhek-kos-iujwinv and prescription medicines only as told by your health care provider. Contact a health care provider if you: Have a sore throat that lasts longer than one day. Have trouble swallowing. Have a fever. Get help right away if you: Vomit blood or your vomit looks like coffee grounds. Have bloody, black, or tarry stools. Have a very bad sore throat or you cannot swallow. Have difficulty breathing or very bad pain in your chest or abdomen. These symptoms may be an emergency. Get help right away. Call 911. Do not wait to see if the symptoms will go away. Do not drive yourself to the hospital. Summary After the procedure, it is common to have a sore throat, mild stomach discomfort, bloating, and nausea. If you were given a sedative during the procedure, it can affect you for several hours. Do not drive until your health care provider says that it is safe. Follow instructions from your health care provider about what you may eat and drink. Return to your normal activities as told by your health care provider. This information is not intended to replace advice given to you by your health care provider. Make sure you discuss any questions you have with your health care provider. Document Revised: 02/24/2023 Document Reviewed: 02/24/2023 [employer] Patient Education 2023 [address]. Follow Up Care 08/07/2024 16:03:06 With:Soo NGUYEN, JARED Ho, [facility] Address: [address] [place] [address], [facility] [address] [phone] [phone] When: Unknown Comments:Office Will Call Date and Time of Follow-up Appt if needed. 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 Optimetrix number: Optimetrix number [id number]. Anesthetic utilized: General. Physical Examination Vital Signs 08/16/2024 14:45 EDT Heart Rate Monitored 65 bpm Respiratory Rate Monitored 20 br/min Systolic Blood Pressure 118 mmHg Diastolic Blood Pressure 71 mmHg Mean Arterial Pressure, Cuff 87 mmHg SpO2 93 % 08/16/2024 14:40 EDT Temperature Temporal Artery 36.5 DegC Heart Rate Monitored 77 bpm Respiratory Rate Monitored 20 br/min Systolic Blood Pressure 122 mmHg Diastolic Blood Pressure 61 mmHg Blood Pressure Location Left arm Mean Arterial Pressure, Cuff 81 mmHg SpO2 94 % Pain Assessment: Controlled. General: Awake, Alert, Appropriate. Respiratory: Adequate air exchange, Non-labored. Cardiovascular: Stable, Normal peripheral perfusion. Neurological: Neurologic exam at baseline. No changes.. Assessment Anesthetic outcome No anesthetic complications noted. No nausea/vomiting. Review / Management Condition: Stable. Plan Transfer/Discharge: Transfer/Discharge Discharge when meets criteria ( From PACU to Ambulatory Surgery Unit, and To home ). [facility] Comment on above: Result Comment: Porter colon Signed By: Jay Talbert Jr., DO.iveth\Date and Time Signed: 08/16/24 15:51 EDT 08-16-2024 Note Patient Education - Text Gastroenterology Upper Endoscopy, Adult, Care After After the procedure, it is common to have a sore throat. It is also common to have: ? Mild stomach pain or discomfort. ? Bloating. ? Nausea. Follow these instructions at home: The instructions below may help you care for yourself at home. Your health care provider may give you more instructions. If you have questions, ask your health care provider. ? If you were given a sedative during the procedure, it can affect you for several hours. Do not drive or operate machinery until your health care provider says that it is safe. ? If you will be going home right after the procedure, plan to have a responsible adult: ? Take you home from the hospital or clinic. You will not be allowed to drive. ? Care for you for the time you are told. ? Follow instructions from your health care provider about what you may eat and drink. ? Return to your normal activities as told by your health care provider. Ask your health care provider what activities are safe for you. ? Take xdwa-sli-snartbr and prescription medicines only as told by your health care provider. Contact a health care provider if you: ? Have a sore throat that lasts longer than one day. ? Have trouble swallowing. ? Have a fever. Get help right away if you: ? Vomit blood or your vomit looks like coffee grounds. ? Have bloody, black, or tarry stools. ? Have a very bad sore throat or you cannot swallow. ? Have difficulty breathing or very bad pain in your chest or abdomen. These symptoms may be an emergency. Get help right away. Call 911. ? Do not wait to see if the symptoms will go away. ? Do not drive yourself to the hospital. Summary ? After the procedure, it is common to have a sore throat, mild stomach discomfort, bloating, and nausea. ? If you were given a sedative during the procedure, it can affect you for several hours. Do not drive until your health care provider says that it is safe. ? Follow instructions from your health care provider about what you may eat and drink. ? Return to your normal activities as told by your health care provider. This information is not intended to replace advice given to you by your health care provider. Make sure you discuss any questions you have with your health care provider. Document Revised: 02/24/2023 Document Reviewed: 02/24/2023 [employer] Patient Education ? [address]. [facility] 08-16-2024 Note Endoscopic Procedure Report - Other Patient: ANDREA SCHOFIELD Age: 39 years Sex: Male : 1985 Associated Diagnoses: None Author: Dorota Vann MD Pre-Procedure Procedure Date 08/16/2024 14:38:00 . Procedure Type: Esophagogastroduodenoscopy with biopsy, Dilation with Hanson. Procedure provider Performed by Dorota Vann MD. Current history and physical Documented on chart. Informed Consent After discussing the rationale, risks and benefits, and alternatives to this procedure, the patient provided signed consent for the procedure. Pre-procedure diagnosis: Dysphagia . Medications Anticoagulant/antiplatelet None. ASA Classification: Class II. . Monitoring: See anesthesia record. . Anticoagulation use: Procedure The procedure was performed in the hospital. See anesthesia record for sedation given during procedure. The patient was positioned starting in the left lateral decubitus position and with safety measures. Endoscope type used was an adult-size, introduced orally, advanced to the 3rd portion of the duodenum. No difficulty was encountered during the procedure. Views were excellent. The patient tolerated the procedure well. Extent reached: Duodenum third portion Findings 1. Esophageal landmarks identified, normal examined esophagus. Empiric dilation was done with Hanson 56 [place] with no resistance. Post dilation there was no mucosal disruption. Random esophageal biopsies were also taken to rule out eosinophilic esophagitis 2. Few small fundic land polyps in the body and fundus of the stomach noted. Otherwise normal examined stomach. Random biopsies were taken to rule out H. pylori 3. Minimal patchy erythema in the duodenal bulb, otherwise normal examined duodenum Images Procedure images: [id number]__[id number]. jpg Rec1_hd_video_[id number]__[id number]. jpg [id number]_hd_video__[id number]. jpg Rec1_hd_video_2023__[id number]. jpg Rec1_hd_video__[id number]. jpg Rec1_hd_video_2023__[id number]. jpg Rec1_hd_video_2023__[id number]. jpg . Post-Procedure Complications: none. Estimated blood loss: Minimal. Specimens: sent to pathology. Devices/ implants: none left in place. Impression and Plan 1. Esophageal landmarks identified, normal examined esophagus. Empiric dilation was done with Hanson 56 [place] with no resistance. Post dilation there was no mucosal disruption. Random esophageal biopsies were also taken to rule out eosinophilic esophagitis 2. Few small fundic land polyps in the body and fundus of the stomach noted. Otherwise normal examined stomach. Random biopsies were taken to rule out H. pylori 3. Minimal patchy erythema in the duodenal bulb, otherwise normal examined duodenum Recommendations: -Resume previous diet -Resume home medications -Follow-up in GI clinic once pathology is available -If dysphagia persist, consider esophageal manometry [facility] Comment on above: Result Comment: Elec tronically Signed By: Soo NGUYEN, Dorota Velázquez\.br\Date and Time Signed: 08/16/24 14:40 EDT Other Comment: Radha koroma Attachment - attachment storage system not supported [id number] Can be viewed in source system Missing Attachment - attachment storage system not supported [id number] Can be viewed in source system Missing Attachment - attachment storage system not supported [id number] Can be viewed in source system Missing Attachment - attachment storage system not supported [id number] Can be viewed in source system Missing Attachment - attachment storage system not supported [id number] Can be viewed in source system Missing Attachment - attachment storage system not supported [id number] Can be viewed in source system Missing Attachment - attachment storage system not supported [id number] Can be viewed in source system 08-16-2024 Note History and Physical Patient: ANDREA SCHOFIELD Age: 39 years Sex: Male : 1985 Associated Diagnoses: None Author: Soo NGUYEN, Dorota Velázquez Preoperative Information Indication for procedure and diagnosis: Dysphagia Chief Complaint as above Review of Systems All systems reviewed, negative except as mentioned above Health Status Current medications: (Selected) Inpatient Medications Ordered Lactated Ringers IV Allison 1000 mL 1,000 mL: 1,000 mL, IV, 100 mL/hr, Routine, Start date 08/16/24 13:31:00 EDT, 10 hour(s), Total volume (mL): 1,000, 111.6 kg, 2.43, m2 Sodium Chloride 0.9% IV Allison 1000 mL 1,000 mL: 1,000 mL, IV, 20 mL/hr, Routine, Start date 08/16/24 7:03:00 EDT, 50 hour(s), Total volume (mL): 1,000, 111.6 kg, 2.43, m2 Prescriptions Prescribed omeprazole 40 mg Cap-DR: 40 mg = 1 cap(s), Oral, BID, # 60 cap(s), Refills(s) 4, Pharmacy: [facility]/pharmacy #[id number], 190.5, cm, 08/07/24 9:43:00 EDT, Height/Length Dosing, 111.6, kg, 08/07/24 9:43:00 EDT, Weight Dosing Documented Medications Documented azelastine hydrochloride 137 mcg spray: 30 mL, 0 Refill(s), USE 1 SPRAY IN AFFECTED NOSTRIL(S) IN THE MORNING AND BEFORE BEDTIME FOR 14 DAYS, Refills(s) 0 famotidine 20 mg Tab: 20 mg = 1 tab(s), Oral, Once a day (at bedtime), Refills(s) 0, Control of stomach acid fluticasone Nasal 0.05 mg/inh Montara: 1 spray(s), Nasal, Daily, Refill(s) 0, Nasal, 0 Refill(s), Allergy symptoms ketorolac Opth 0.5% Allison: Refill(s) 0, 10 mL, 0 Refill(s), PLACE 1 DROP INTO BOTH EYES IN THE MORNING,AT NOON, IN THE EVENING, & BEFORE BEDTIME FOR 10 DAYS. loratadine 10 mg Tab: 10 mg = 1 tab(s), Oral, Daily, Refills(s) 0, Allergy symptoms, Home Medications (6) Active azelastine hydrochloride 137 mcg spray famotidine 20 mg Tab 20 mg = 1 tab(s), Oral, Once a day (at bedtime) fluticasone Nasal 0.05 mg/inh Montara 1 spray(s), Nasal, Daily ketorolac Opth 0.5% Allison loratadine 10 mg Tab 10 mg = 1 tab(s), Oral, Daily omeprazole 40 mg Cap-DR 40 mg = 1 cap(s), Oral, BID Problem list: All Problems Encounter for sterilization / SNOMED CT 761533371 / Confirmed GERD (gastroesophageal reflux disease) / SNOMED CT 232809584 / Confirmed Globus sensation / SNOMED CT 378510156 / Confirmed Allergic rhinitis / SNOMED CT 263282954 / Confirmed Atopic dermatitis / SNOMED CT 44502320 / Confirmed Bilateral tinnitus / SNOMED CT 6658960118 / Confirmed Conductive hearing loss of left ear with unrestricted hearing of right ear / SNOMED CT 0214198229 / Confirmed Histories Past Medical History: No active or resolved past medical history items have been selected or recorded. Family History: Patient was adopted. Father History is negative. Mother History is negative. Procedure history: Bilateral vasectomy ([id number]) on 05/01/2019 at 33 Years. Eustachian tube (017189317). Tonsillectomy (002287290). Social History Social & Psychosocial Habits Alcohol 08/16/2024 Risk Assessment: Denies Alcohol Use Tobacco 08/16/2024 Risk Assessment: Denies Tobacco Use 08/16/2024 Tobacco Use: Never (less than 100 in l Smokeless tobacco use: Never . Physical Examination Vital Signs (last 24 hrs) Last Charted Temp Temporal 36.9 DegC (AUG 16 13:30) Heart Rate Monitored 61 bpm (AUG 16 13:30) Resp Rate 15 br/min (AUG 16 13:30) SBP 124 mmHg (SEP 18 13:30) DBP H 95 mmHg (JUL 18 13:30) Weight 111.6 kg (AUG 16 13:26) BMI 30.75 (AUG 16 13:26) General: in Nad Abdomen: Soft, NTND Impression and Plan Impression: Dysphagia Plan: -EGD [facility] Comment on above: Result Comment: Elec tronically Signed By: Soo NGUYEN, Dorota Velázquez\.br\Date and Time Signed: 08/16/24 14:24 EDT 08-16-2024 Evaluation + Plan note Extrac donato from: Title:ANES Post-operative Note - General Author: Jay Talbert Jr., DO Date:08/16/24 Plan Transfer/Discharge: Transfer/Discharge Discharge when meets criteria ( From PACU to Ambulatory Surgery Unit, and To home ). Extracted from: Title:1Preop H&P Author:Dorota Vann MD Date:08/16/24 Impression and Plan Impression: Dysphagia Plan: -EGD Extracted from: Title:ANES Pre-operative Note - Endo Author:Jay Peng Jr., DO Date:08/16/24 Plan [place] [employer] (ASA) physical status classification: Class II. Anesthetic Preoperative Plan: Anesthesia General, and -TIVA. [facility] 09-18-2024 NoteProgress Note-Physician Patient: ANDREA SCHOFIELD Age: 39 years Sex: Male : 1985 Associated Diagnoses: None Author: Jay Talbert Jr., DO Preoperative Information Anesthesia history: Patient history: No prior anesthetic problems. Informed consent: Signed by patient. Re-evaluation prior to induction: Initial evaluation reviewed: No significant change. Review of Systems Respiratory: Negative except as documented in history of present illness. Cardiovascular: Negative except as documented in history of present illness. Health Status Allergies: Allergic Reactions (Selected) No Known Medication Allergies, Allergies (1) Active Severity Reaction No Known Medication Allergies None Documented Current medications: (Selected) Inpatient Medications Ordered Lactated Ringers IV Allison 1000 mL 1,000 mL: 1,000 mL, IV, 100 mL/hr, Routine, Start date 09/18/24 13:31:00 EDT, 10 hour(s), Total volume (mL): 1,000, 111.6 kg, 2.43, m2 Sodium Chloride 0.9% IV Allison 1000 mL 1,000 mL: 1,000 mL, IV, 20 mL/hr, Routine, Start date 08/16/24 7:03:00 EDT, 50 hour(s), Total volume (mL): 1,000, 111.6 kg, 2.43, m2 Prescriptions Prescribed omeprazole 40 mg Cap-DR: 40 mg = 1 cap(s), Oral, BID, # 60 cap(s), Refills(s) 4, Pharmacy: [facility]/pharmacy #[id number], 190.5, cm, 08/07/24 9:43:00 EDT, Height/Length Dosing, 111.6, kg, 08/07/24 9:43:00 EDT, Weight Dosing Documented Medications Documented azelastine hydrochloride 137 mcg spray: 30 mL, 0 Refill(s), USE 1 SPRAY IN AFFECTED NOSTRIL(S) IN THE MORNING AND BEFORE BEDTIME FOR 14 DAYS, Refills(s) 0 famotidine 20 mg Tab: 20 mg = 1 tab(s), Oral, Once a day (at bedtime), Refills(s) 0, Control of stomach acid fluticasone Nasal 0.05 mg/inh Montara: 1 spray(s), Nasal, Daily, Refill(s) 0, Nasal, 0 Refill(s), Allergy symptoms ketorolac Opth 0.5% Allison: Refill(s) 0, 10 mL, 0 Refill(s), PLACE 1 DROP INTO BOTH EYES IN THE MORNING,AT NOON, IN THE EVENING, & BEFORE BEDTIME FOR 10 DAYS. loratadine 10 mg Tab: 10 mg = 1 tab(s), Oral, Daily, Refills(s) 0, Allergy symptoms, Home Medications (6) Active azelastine hydrochloride 137 mcg spray famotidine 20 mg Tab 20 mg = 1 tab(s), Oral, Once a day (at bedtime) fluticasone Nasal 0.05 mg/inh Montara 1 spray(s), Nasal, Daily ketorolac Opth 0.5% Allison loratadine 10 mg Tab 10 mg = 1 tab(s), Oral, Daily omeprazole 40 mg Cap-DR 40 mg = 1 cap(s), Oral, BID , Medications (2) Active Scheduled: (0) Continuous: (2) Lactated Ringers 1,000 mL 1,000 mL, IV, 100 mL/hr Sodium Chloride 0.9% 1,000 mL 1,000 mL, IV, 20 mL/hr PRN: (0) Problem list: All Problems Allergic rhinitis / SNOMED CT 855654314 / Confirmed Atopic dermatitis / SNOMED CT 04005617 / Confirmed Bilateral tinnitus / SNOMED CT 3495445811 / Confirmed Conductive hearing loss of left ear with unrestricted hearing of right ear / SNOMED CT 8431491040 /Confirmed Encounter for sterilization / SNOMED CT 090320602 / Confirmed GERD (gastroesophageal reflux disease) / SNOMED CT 424493753 / Confirmed Globus sensation / SNOMED CT 059288206 / Confirmed Histories Past Medical History: No active or resolved past medical history items have been selected or recorded. Procedure history: Bilateral vasectomy ([id number]) on 05/01/2019 at 33 Years. Eustachian tube (931485656). Tonsillectomy (017255084). Social History Social & Psychosocial Habits Alcohol 08/16/2024 Risk Assessment: Denies Alcohol Use Tobacco 08/16/2024 Risk Assessment: Denies Tobacco Use 08/16/2024 Tobacco Use: Never (less than 100 in l Smokeless tobacco use: Never . Physical Examination Measurements from flowsheet : Measurements 08/16/2024 13:26 EDT Height/Length Measured 190.5 cm Height/Length Dosing 190.5 cm Weight Dosing 111.6 kg BSA Measured 2.43 m2 Body Mass Index Measured 30.75 kg/m2 Weight Measured 111.6 kg Airway: Mallampati classification: II (soft palate, fauces, uvula visible). Respiratory: Lungs are clear to auscultation, Respirations are non-labored. Cardiovascular: Regular rhythm. Plan [place] [employer]hes[employer] (ASA) physical status classification: Class II. Anesthetic Preoperative Plan: Anesthesia General, and -[facility]IVA[facility]Result Comment: Electronically Signed By: Jay Talbert Jr., DO.iveth\Date and Time Signed: 08/16/24 13:32 [id number] History of Present illness Narrative* AMITA Staton 07/28/2024 11:00 AM EDT Images from the original note were not included. HPI right arm pain Additional comments: Admits right arm pain that he feels may be tendonitis. He has been wearing a brace on/off and when typing used a towel for support his arm and that did help but moved something alittle heavy and flared it up again. Referral Additional comments: He still c/o feeling of something stuck in his throat/GERD and he does have appt with [facility] for scope on 08/07/24. Last edited by Patricia Figueroa LPN on 07/28/2024 11:09 AM. Subjective Patient ID: Arnol Schofield is a 39 y.o. male who presents for allergies. Arnol is present today for follow up allergies. He has seen Dr. Juarez in the past and was diagnosed with Atopic Dermatitis by his eyes that may never go away and to use steroid cream when it flares. Has tried baby shampoo. Has seen Dr. Daria Stauffer at [facility]. Most recent OV notes requested today by our office. Has been on Keotorolac eye drops, used topical steroid, antimicrobial drops, Pataday, Flonase, Azelastine, Zyrtec, Avenova spray. Had negative culture. Coughs up phlegm in the mornings when he takes a shower. Feels like there is always something in his throat now. Feels like he is swallowing past something. States Zyrtec made him groggy in the morning. Current Outpatient Medications on File Prior to Visit Medication Sig Dispense Refill carboxymethylcellulose (Refresh Plus) 0.5 % ophthalmic solution 1 drop if needed for dry eyes fluticasone (Flonase) 50 MCG/ACT nasal spray Administer 1 spray into each nostril Daily PRN 9.9 mL 5 Multiple Vitamin (MULTIVITAMIN ADULT PO) Take 1 tablet by mouth 1 (one) time each day. omeprazole (PriLOSEC) [address] capsule TAKE 1 CAPSULE BY MOUTH BEFORE MORNING MEAL EVERY DAY 90 capsule 4 [DISCONTINUED] Azelastine HCl 137 MCG/SPRAY solution Administer 1 spray into affected nostril(s) inthe morning and 1 spray before bedtime. Do all this for 14 days. 30 mL 2 [DISCONTINUED] cetirizine (ZyrTEC) 10 MG tablet Take 1 tablet (10 mg) by mouth at bedtime 90 tablet3 [DISCONTINUED] ketorolac (Acular) 0.5 % ophthalmic solution 1 drop in the morning and 1 drop at noon and 1 drop in the evening and 1 drop before bedtime. No current facility-administered medications on file prior to visit. I have reviewed and reconciled the history and medication list with the patient today. Allergies Allergen Reactions Erythromycin Base Unknown Social History Tobacco Use Smoking status: Never Smokeless tobacco: Never Vaping Use Vaping status: Never Used Substance Use Topics Alcohol use: Not Currently Drug use: Never Family History Problem Relation Name Age of Onset Colon cancer Other Past Medical History: Diagnosis Date GERD (gastroesophageal reflux disease) Past Surgical History: Procedure Laterality Date KNEE ARTHROSCOPY W/ MENISCAL REPAIR Left 11/11/2022 Partial Medial Meniscectomy TONSILLECTOMY WISDOM TOOTH EXTRACTION Visit Vitals BP 128/84 Pulse 64 Resp 16 Ht 6' 3 Wt 249 lb 3.2 oz SpO2 97% BMI 31.15 kg/m Smoking Status Never BSA 2.45 m Review of Systems Constitutional: Negative for chills, fatigue and fever. HENT: Positive for postnasal drip and rhinorrhea. Eyes: Positive for pain, discharge and redness. Respiratory: Negative for cough, shortness of breath and wheezing. Cardiovascular: Negative for chest pain, palpitations and leg swelling. Gastrointestinal: Positive for constipation and diarrhea. Negative for abdominal pain, nausea and vomiting. Reflux, globus sensation Musculoskeletal: Positive for myalgias. Skin: Negative for rash. Objective Physical Exam Constitutional: General: He is not in acute distress. Appearance: Normal appearance. HENT: Head: Normocephalic and atraumatic. Eyes: General: No scleral icterus. Extraocular Movements: Extraocular movements intact. Conjunctiva/sclera: Right eye: Right conjunctiva is injected. Left eye: Left conjunctiva is injected. Pupils: Pupils are equal, round, and reactive to light. Comments: Mild erythema beneath bilateral eyes L > R Cardiovascular: Rate and Rhythm: Normal rate and regular rhythm. Heart sounds: No murmur heard. Pulmonary: Effort: Pulmonary effort is normal. No respiratory distress. Breath sounds: Normal breath sounds. No wheezing, rhonchi or rales. Musculoskeletal: General: No swelling. Right forearm: Tenderness present. No swelling or deformity. Right hand: Normal range of motion. Normal strength. Normal sensation. Arms: Comments: Right flexor muscles tender in area noted in exam. No pain with resistance to wrist flexion. Assessment Technician strength intact. Mild pain with pronation. Skin: General: Skin is warm and dry. Neurological: General: No focal deficit present. Mental Status: He is alert and oriented to person, place, and time. Psychiatric: Mood and Affect: Mood normal. Behavior: Behavior normal. Assessment/Plan Diagnoses and all orders for this visit: Globus sensation Keep appointment as scheduled for EGD. Advised pt it has the possibility of being diagnostic and therapeutic. If there is an esophageal stricture, they may be able to dilate the esophagus at time of the scope. Gastroesophageal reflux disease without esophagitis - famotidine (Pepcid) 20 MG tablet; Take 1 tablet (20 mg) by mouth at bedtime Continue Omeprazole daily in the morning. Add Famotidine at bedtime. Reviewed how the medications work differently, but should work together to decrease acid production in the stomach. Allergic cough - loratadine (Claritin) 10 MG tablet; Take 1 tablet (10 mg) by mouth Daily - FOOD ALLERGY PROFILE WITH REFLEXES; Future Due to persistent eye irritation and allergy type symptoms, and initial negative allergy testing with Dr. Juarez, will obtain a food allergy panel for further evaluation. Will notify pt of the results once received. Tendinitis of right forearm Encouraged him to continue to use the brace as needed as that does provide pt with some relief of symptoms. Also, apply topical Diclofenac up to three times a day consistently for the next 1-2 weeks. Alternating constipation and diarrhea - Ova and parasite screen; Standing Will obtain three stool samples to cover for any fluctuations in parasite shedding. He will have this done at [facility]. The symptoms in his eye and bowels started the day after swimming in a [place]ryan. It is possible that these symptoms could be related. Eye irritation Has seen ophthalmology, food adviser, and tried several different treatments without any consistent relief. Pt is concerned it could be due to Demodex folliculorum, mites. Encouraged pt to try Selenium Sulfide, Head and shoulders or Selsun Blue shampoo, to eyelashes once a day in the shower for a few weeksto see if symptoms improve. Can look into potential Rx options if needed. Follow up if symptoms worsen or fail to improve. [id number]* Encounter Date Diagnosis Assessment Notes Treatment Notes Treatment Clinical Notes Jun, Acute sinusitis, recurrence not specified, [...] eyes, unspecified conjunctivitis type (ICD-10 - H10.9) [employer] Other Evaluation + Plan note Future Appointments Appointment Date:08/16/2024 02:15:00 PM Scheduled Provider: Location:[facility] Appointment Type:Surgery [facility] Evaluation note* Diagnosis Globus sensation- Primary Gastrointestinal malfunction arising from mental factors Gastroesophageal reflux disease without esophagitis Esophageal reflux Allergic cough Cough Tendinitis of right forearm Alternating constipation and diarrhea Eye irritation Other ill-defined disorder of eye documented in this encounter [facility]* Diagnosis EIC (epidermal inclusion cyst)- Primary Sebaceous cyst Melanocytic nevus of trunk Benign neoplasm of skin of trunk, except scrotum Seborrheic keratosis Capillary angioma Nevus, non-neoplastic documented in this encounter [facility] HealthcareEvaluation note* Diagnosis Tendinitis of right forearm- Primary Acute non-recurrent pansinusitis documented in this encounter [facility]Evaluation note* Diagnosis Acute left otitis media- Primary Acute non-recurrent pansinusitis Gastro-esophageal reflux disease without esophagitis documented in this encounter [facility]Evaluation note* Diagnosis Acute gout, unspecified cause, unspecified site- Primary Left foot pain Pain in soft tissues of limb documented in this encounter [facility] HealthcareEvaluation note* Diagnosis Left foot pain- Primary Pain in soft tissues of limb documented in this encounter [facility]* Diagnosis Gout of left foot, unspecified cause, unspecified chronicity- Primary Left foot pain Pain in soft tissues of limb Capsulitis of metatarsophalangeal (MTP) joint of left foot Plantar fasciitis Plantar fascial fibromatosis documented in this encounter [facility]* Diagnosis Capsulitis of metatarsophalangeal (MTP) joint of left foot- Primary Gout of left foot, unspecified cause, unspecified chronicity Plantar fasciitis Plantar fascial fibromatosis documented in this encounter [facility]* Diagnosis Capsulitis of metatarsophalangeal (MTP) joint of left foot- Primary Gout of left foot, unspecified cause, unspecified chronicity Plantar fasciitis Plantar fascial fibromatosis documented in this encounter [facility]* Diagnosis Pain in right forearm- Primary Arm weakness Other musculoskeletal symptoms referable to limbs Numbness Disturbance of skin sensation Arm pain, right Pain in soft tissues of limb documented in this encounter [facility]* Diagnosis Gout of left foot, unspecified cause, unspecified chronicity- Primary Capsulitis of metatarsophalangeal (MTP) joint of left foot- Primary Plantar fasciitis Plantar fascial fibromatosis Gout of left foot, unspecified cause, unspecified chronicity documented in this encounter [facility]* Diagnosis Capsulitis of metatarsophalangeal (MTP) joint of left foot- Primary Plantar fasciitis Plantar fascial fibromatosis Gout of left foot, unspecified cause, unspecified chronicity Hallux rigidus of left foot documented in this encounter [facility]* Diagnosis Flexor carpi ulnaris tendinitis- Primary Capsulitis of metatarsophalangeal (MTP) joint of left foot- Primary Hallux rigidus of left foot Gout of left foot, unspecified cause, unspecified chronicity Plantar fasciitis Plantar fascial fibromatosis documented in this encounter [facility]* Diagnosis Capsulitis of metatarsophalangeal (MTP) joint of left foot- Primary Hallux rigidus of left foot Gout of left foot, unspecified cause, unspecified chronicity Plantar fasciitis Plantar fascial fibromatosis documented in this encounter [facility] HealthcareHistory general Narrative - Reported* Type Description Date Surgical History tonsillectomy and adenoidectomy Surgical History PE tubes Surgical History meniscus 11/19 [employer] Other Hospital course Narrative No data available for this section [facility] Hospital Discharge instructions No data available for this section [facility] Progress note No data available for this section [facility] Summary Purpose Family History No Family History Records FoundNo Family History Records Found No data available for this section No Family History Records FoundNo Family History Records Found No data available for this section No Family History Records Found No data available for this section No Family History Records Found Advance Directives No [...] section and content) DATE CREATED AUTHOR 10/02/2022 [facility] DATE CREATED AUTHOR AUTHOR'S ORGANIZ ATION 12/17/2022 [facility] DATE CREATED AUTHOR AUTHOR'S ORGANIZ ATION 08/18/2024 Casanova Lyndon [facility] DATE CREATED AUTHOR AUTHOR'S ORGANIZ ATION 08/26/2024 Casanova Bannock [facility] DATE CREATED AUTHOR AUTHOR'S ORGANIZ ATION 09/17/2024 Casanova Bannock [facility] DATE CREATED AUTHOR AUTHOR'S ORGANIZ ATION 09/08/2025 [facility] EPIC REASON FOR VISIT (unrecogniz ed section and content) Reason Comments right arm pain Admits right arm symone n that he feels may be tendonitis. He has been wearing a brace on/off and when typing used a towel for support his arm and that did help but moved something a little heavy and flared it up again. Referral He still c/o feeling of something stuck in his throat/GERD and he does have appt with [facility] for scope on 08/07/24. Reason Comments Skin Check Reason Comments Med Refill Omeprazole Reason Comments Toe Pain Specialty Diagnoses / Procedures Referred By Rukhsana carrizales Referred To Contact Podiatry Diagnoses Left foot pain Procedures [place] OFFICE/OUTPATIENT NEW HIGH MDM 60 MINUTES Zaida Wyatt, THIRD STEEL POURER [address] [facility] [address] [place] [address] Phone: tel: fax: Reddy Singh DPM [address] 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 Reason Comments Follow-up Ft pain Reason Comments Pain Specialty Diagnoses / Procedures Referred By Contvenus t Referred To Contact Orthopaedic Surgery Diagnoses Tendinitis of right forearm Pain in right forearm Carla Cisneros PA [address] [facility] [address] [place] [address] Phone: tel: fax: Sergio Kasper, PA [address] [place] [address] Phone: tel: fax: Referral ID Status Reason Start Date Expiration Date V isits Requested Visits Authorized [id number] Closed Specialty Services Required 08/22/2025 02/18/2026 1 1 Reason Comments Follow-up Lt 1st mpj Reason Comments Follow-up Foot pain Patient Care team informatio n (unrecognized section and content) Cut To Length Operator Relationship Specialty Start Date End Date Janeen Levi MD [address] [facility] [address] [place] [address] PCP - General Family Medicine 05/03/23 Cut To Length Operator Relationship Specialty Start Date End Date Janeen Levi MD [address] [facility] [address] [place] [address] PCP - General Family Medicine 05/03/23 Cut To Length Operator Relationship Specialty Start Date End Date Janeen Levi MD [address] [facility] [address] [place] [address] PCP - General Family Medicine 05/03/23 Janeen Levi MD [address] [place] [address] PCP - [facility] ORDER PROCESSING SPECIALIST 02/28/24 Cut To Length Operator Relationship Specialty Start Date End Date Janeen Levi MD [address] [place] [address] PCP - General Family Medicine 05/03/23 Janeen Levi MD [address] [place] [address] PCP - [facility] ORDER PROCESSING SPECIALIST 02/28/24 Cut To Length Operator Relationship Specialty Start Date End Date Janeen Levi MD [address] [facility] [address] [place] [address] PCP - General Family Medicine 05/03/23 Janeen Levi MD [address] [place] [address] PCP - [facility] ORDER PROCESSING SPECIALIST 02/28/24 Cut To Length Operator Relationship Specialty Start Date End Date Janeen Levi MD [address] [place] [address] PCP - General Family Medicine 05/03/23 Janeen Levi MD [address] [place] [address] PCP - [facility] ORDER PROCESSING SPECIALIST 02/28/24 Cut To Length Operator Relationship Specialty Start Date End Date Janeen Levi MD [address] [address] [place] [address] PCP - General Family Medicine 05/03/23 Janeen Levi MD [address] [address] [place] [address] PCP - [facility] 02/28/24 Cut To Length Operator Relationship Specialty Start Date End Date Janeen Levi MD [address] [place] [address] PCP - General Family Medicine 05/03/23 Janeen Levi MD [address] [address] [place] [address] PCP - [facility] 02/28/24 Cut To Length Operator Relationship Specialty Start Date End Date Janeen Levi MD [address] [address] [place] [address] PCP - General Family Medicine 05/03/23 Janeen Levi MD [address] [address] [place] [address] PCP - [facility] 02/28/24 Cut To Length Operator Relationship Specialty Start Date End Date Janeen Levi MD [address] [address] [place] [address] PCP - General Family Medicine 05/03/23 Janeen Levi MD [address] [place] [address] PCP - [facility] 02/28/24 Cut To Length Operator Relationship Specialty Start Date End Date Janeen Levi MD [address] [place] [address] PCP - General Family Medicine 05/03/23 Janeen Levi MD [address] [place] [address] PCP - [facility] 02/28/24 Cut To Length Operator Relationship Specialty Start Date End Date Janeen Levi MD [address] [place] [address] PCP - General Family Medicine 05/03/23 Janeen Levi MD [address] [address] [place] [address] PCP - [facility] 02/28/24 Cut To Length Operator Relationship Specialty Start Date End Date Janeen Levi MD [address] [address] [place] [address] PCP - General Family Medicine 05/03/23 Janeen Levi MD [address] [address] [place] [address] PCP - [facility] 02/28/24 Cut To Length Operator Relationship Specialty Start Date End Date Janeen Levi MD [address] [address] [place] [address] PCP - General Family Medicine 05/03/23 Janeen Levi MD [address] [place] [address] PCP - [facility] 02/28/24 Cut To Length Operator Relationship Specialty Start Date End Date Janeen Levi MD [address] [place] [address] PCP - General Family Medicine 05/03/23 Janeen Levi MD [address] [facility] [address] [place] [address] PCP - [facility] Blackburn [facility] 02/28/24 Cut To Length Operator Relationship Specialty Start Date End Date Janeen Levi MD [address] [facility] [address] [place] [address] PCP - General Family Medicine 05/03/23 Janeen Levi MD [address] [facility] [address] [place] [address] PCP - [facility] Blackburn [facility] 02/28/24 Cut To Length Operator Relationship Specialty Start Date End Date Janeen Levi MD [address] [facility] [address] [place] [address] PCP - General Family Medicine 05/03/23 Janeen Levi MD [address] [facility] [address] [place] [address] PCP - [facility]OMBrandon Blackburn [facility] 02/28/24 FOR RECORDS PERTAINING TO PATIENTS WHO ARE [...] BE BASED ON THE PRIMARY CLINICAL RECORDS. [facility] [employer] [facility]. provides no warranty or guarantee of the accuracy or completeness of information in this document.
[2025-09-13 11:10] LABS: Uric Acid 9.4 mg/dL (3.5-7.2)
== END 2025-09-13 09:48 | disposition home or self-care (01) ==
LOC: LAB 09:50
PROVIDERS: PCP Physician Assistant
DX: M10.9 Gout, unspecified (principal)
CPT/HCPCS: 36415; 84550; 86140

== ENCOUNTER 2025-09-24 07:48 | Outpatient (RCR) | payer MEDICAID, SELFPAY | END 2025-11-07 08:42 | disposition home or self-care (01) | LOC: OT 07:48 | PROVIDERS: PCP Physician Assistant; Visit Provider Orthopaedic Surgery | DX: M77.8 Other enthesopathies, not elsewhere classified (principal) | CPT/HCPCS: 97014; 97035; 97110; 97140; 97167; 97530 ==